=== PATIENT | male | born 1965 | race Asian ===

== ENCOUNTER 2018-04-08 21:49 | Inpatient (IN) | payer MEDICARE, OTHER ==
[~2018-04-08] VITALS: Ht 172.7 cm; Wt 56.7 kg
[2018-04-08] MEDS ORDERED: Isovue-300 100ml vial INJ PRN (22:00)
[2018-04-08] MEDS ORDERED: Morphine Sulfate 4mg/ml Inj IVP ONE (22:00)
[2018-04-08 22:30] VITALS: BP 172/110
[2018-04-08 22:33] LABS: ANION GAP 17 mmol/L (5-15); BLOOD UREA NITROGEN 19 mg/dL (7-18); CALCIUM 10.1 MG/DL (8.5-10.1); CARBON DIOXIDE 19 MMOL/L (21-32); CHLORIDE 101 MMOL/L (98-107); CREATININE 0.4 MG/DL (0.55-1.30); POTASSIUM 3.4 MMOL/L (3.5-5.1); SODIUM 137 MMOL/L (136-145)
[2018-04-08 22:37] LABS: HEMATOCRIT 39.5 % (42.0-52.0); HEMOGLOBIN 13.6 G/DL (14.2-18.0); MEAN CORPUSCULAR VOLUME 89 FL (80-99); PLATELET COUNT 292 K/UL (150-450); RED BLOOD COUNT 4.42 M/UL (4.70-6.10); RED CELL DISTRIBUTION WIDTH 12.4 % (11.6-14.8); WHITE BLOOD COUNT 19.3 K/UL (4.8-10.8)
[2018-04-08 22:38] LABS: ALANINE AMINOTRANSFERASE 73 U/L (12-78); ALBUMIN 4.3 G/DL (3.4-5.0); ALBUMIN/GLOBULIN RATIO 0.7 (1.0-2.7); ALKALINE PHOSPHATASE 95 U/L (46-116); ASPARTATE AMINO TRANSFERASE 35 U/L (15-37); BILIRUBIN,TOTAL 0.5 MG/DL (0.2-1.0)
[2018-04-08] MEDS ORDERED: Morphine Sulfate 4mg/ml Inj ONE (22:38)
[2018-04-08 22:43] LABS: APPEARANCE,URINE CLEAR; BILIRUBIN, URINE NEGATIVE (NEGATIVE); COLOR,URINE PALE YELLOW; GLUCOSE, URINE (UA) NEGATIVE (NEGATIVE); KETONES,URINE 3+ (NEGATIVE); LEUKOCYTE ESTERASE ,URINE NEGATIVE (NEGATIVE); NITRITE,URINE NEGATIVE (NEGATIVE); PH,URINE 8 (4.5-8.0); PROTEIN,URINE 3+ (NEGATIVE); UROBILINOGEN,URINE NORMAL MG/DL (0.0-1.0)
[2018-04-08] MEDS ORDERED: BACLOFEN10 MG ORAL (22:44)
[2018-04-08] MEDS ORDERED: NORCO 5-325 TA1 EACH ORAL (22:44)
[2018-04-08] MEDS ORDERED: Morphine Sulfate 4mg/ml Inj IM ONE (22:45)
[2018-04-08 23:30] VITALS: BP 129/96
[2018-04-09] MEDS ORDERED: Morphine Sulfate 10mg/ml Inj IM ONE
--- NOTE | 2018-04-09 01:37 | Diagnostic Imaging Report ---
EXAM: CT Abdomen and Pelvis With Intravenous Contrast CLINICAL HISTORY: ABD PAIN TECHNIQUE: Axial computed tomography images of the abdomen and pelvis with intravenous contrast. CTDI is 18 mGy and DLP is 979 mGy-cm. One or more of the following dose reduction techniques were used: automated exposure control, adjustment of the mA and/or kV according to patient size, use of iterative reconstruction technique. COMPARISON: No relevant prior studies available. FINDINGS: Lung bases: Unremarkable. No mass. No consolidation. ABDOMEN: Liver: Unremarkable. No mass. Gallbladder and bile ducts: Mild dilatation of the CBD, 8 mm, and the gallbladder, without calcified stones. Pancreas: Unremarkable. No mass. No ductal dilation. Spleen: Unremarkable. No splenomegaly. Adrenals: Unremarkable. No mass. Kidneys and ureters: Unremarkable. No solid mass. No hydronephrosis. Stomach and bowel: Possible wall thickening in the rectosigmoid colon indicates possible colitis. No obstruction. PELVIS: Appendix: No findings to suggest acute appendicitis. Bladder: Unremarkable. No mass. Reproductive: Unremarkable as visualized. ABDOMEN and PELVIS: Intraperitoneal space: Unremarkable. No free air. No significant fluid collection. Bones/joints: No acute fracture. No dislocation. Soft tissues: Unremarkable. Vasculature: Unremarkable. No abdominal aortic aneurysm. Lymph nodes: Unremarkable. No enlarged lymph nodes. Tubes, lines and devices: Gastric tube in place. IMPRESSION: 1. Possible wall thickening in the rectosigmoid colon indicates possible colitis. 2. Mild dilatation of the CBD, 8 millimeters, and the gallbladder, without calcified stones.
[2018-04-09] MEDS ORDERED: Piperacillin/Tazobactam 3.375 GM in NS 110 ML IVPB ONE (01:45)
[2018-04-09 01:48] LABS: INR 0.9 (0.9-1.1)
[2018-04-09 02:21] VITALS: BP 123/87
[2018-04-09] MEDS ORDERED: Zolpidem 5mg tab GT ONE (02:45)
[2018-04-09 03:40] VITALS: BP 128/88
--- NOTE | 2018-04-09 04:16 | Emergency Room Report ---
History of Present Illness General Chief Complaint: Abdominal Pain Source: Family Member Present Illness HPI 52-year-old male presents ED for evaluation. Patient brought in by EMS for abdominal pain. Started tonight. Epigastric, 10 out of 10, sharp, radiating to the left upper quadrant. Patient has history of ALS. Has trach. Vent dependent. also notes some blood in patient's vomitus. Denies fevers chills. Denies chest pain or shortness of breath. No other aggravating relieving factors. Denies any other associated symptoms Allergies: Coded Allergies: No Known Allergies (Unverified , 04/08/18) Patient History Past Medical History: none Past Surgical History: none Pertinent Family History: none Social History: Denies: smoking, alcohol use, drug use Immunizations: UTD Reviewed Nursing Documentation: PMH: Agreed; PSxH: Agreed Review of Systems All Other Systems: negative except mentioned in HPI Physical Exam Vital Signs Date Time Temp Pulse Resp B/P (MAP) Pulse Ox O2 Delivery O2 Flow Rate FiO2 04/08/18 21:43 98.7 112 16 195/110 100 Mechanical Ventilator 30 98.8 Sp02 EP Interpretation: reviewed, normal General Appearance: no apparent distress, alert, GCS 15, non-toxic Head: normocephalic, atraumatic Eyes: bilateral eye normal inspection, bilateral eye PERRL ENT: hearing grossly normal, normal pharynx, no angioedema, normal voice Neck: full range of motion, supple/symm/no masses, tracheotomy Respiratory: chest non-tender, lungs clear, normal breath sounds, speaking full sentences Cardiovascular #1: regular rate, rhythm, no edema Cardiovascular #2: 2+ carotid (R), 2+ carotid (L), 2+ radial (R), 2+ radial (L) , 2+ dorsalis pedis (R), 2+ dorsalis pedis (L) Gastrointestinal: normal bowel sounds, soft, non-distended, no guarding, no rebound, tenderness Rectal: deferred Genitourinary: normal inspection, no CVA tenderness Musculoskeletal: back normal Neurologic: alert, oriented x3, responsive, other - ALS Psychiatric: judgement/insight normal, memory normal, mood/affect normal, no suicidal/homicidal ideation Reflexes: 0 bicep (R), 0 bicep (L), 0 tricep (R), 0 tricep (L), 0 knee (R), 0 knee (L), 0 ankle (R), 0 ankle (L) Skin: normal color, no rash, warm/dry, well hydrated Lymphatic: no adenopathy Procedures Central Line Central Line : Consent: Written Central Line Lumen: triple Maximal Sterile Barrier Tech: yes cap, yes mask, yes sterile gown, yes sterile gloves, yes large sterile sheet, yes hand hygiene, yes chlorhexidine prep Central Line Postion: femoral (R), femoral (L) Anesthesia: Lidocaine Complications: none Attempts: Other - twice Patient Tolerated: Poor Complications: Other - unable to thread guidewire Medical Decision Making Diagnostic Impression: Primary Impression: Colitis Additional Impressions: UGIB (upper gastrointestinal bleed) ALS (amyotrophic lateral sclerosis) Tracheostomy dependent ER Course Hospital Course 52-year-old male presents ED with epigastric pain, coffee-ground emesis. History of ALS Differential diagnoses include: BPH, cystitis, pyelonephritis, kidney stone Clinical course Patient placed on stretcher. cafeteria monitor. After initial history and physical I ordered labs, IV fluids, UA, pain medication and CT scan Patient has difficult IV access. I attempted central line in right and left femoral; I was unable to thread the guidewire likely due to sclerosis. Ultimately nursing was able to establish peripheral access Labs - noted leukocytosis, Hb/Hct stable, electrolytes ok CT abdomen and pelvis - colitis Patient given broad-spectrum antibiotics. Given IV fluids. Pain ultimately controlled with multiple dosing of medication. Discussed findings with patient and family Case discussed with Dr. Cassidy and he agreed to accept the patient to his service for further care and support I feel this is a highly complex case requiring extensive working including EKG/ Rhythm strip, Xray/CT/US, Blood/urine lab work, repeat exams while in ED, and administration of strong opiates/narcotics for pain control, admission to hospital or close patient follow up. Diagnosis - colitis, UGIB, ALS, tracheostomy dependent Patient admitted to SDU in serious condition Labs Test 04/08/18 22:05 04/08/18 22:26 White Blood Count 19.3 K/UL (4.8-10.8) Red Blood Count 4.42 M/UL (4.70-6.10) Hemoglobin 13.6 G/DL (14.2-18.0) Hematocrit 39.5 % (42.0-52.0) Mean Corpuscular Volume 89 FL (80-99) Mean Corpuscular Hemoglobin 30.7 PG (27.0-31.0) Mean Corpuscular Hemoglobin Concent 34.3 G/DL (32.0-36.0) Red Cell Distribution Width 12.4 % (11.6-14.8) Platelet Count 292 K/UL (150-450) Mean Platelet Volume 6.8 FL (6.5-10.1) Neutrophils (%) (Auto) % (45.0-75.0) Lymphocytes (%) (Auto) % (20.0-45.0) Monocytes (%) (Auto) % (1.0-10.0) Eosinophils (%) (Auto) % (0.0-3.0) Basophils (%) (Auto) % (0.0-2.0) Differential Total Cells Counted 100 Neutrophils % (Manual) 82 % (45-75) Lymphocytes % (Manual) 9 % (20-45) Monocytes % (Manual) 7 % (1-10) Eosinophils % (Manual) 0 % (0-3) Basophils % (Manual) 0 % (0-2) Band Neutrophils 2 % (0-8) Platelet Estimate Adequate Platelet Morphology Normal Red Blood Cell Morphology Normal Prothrombin Time 9.9 SEC (9.30-11.50) Prothromb Time International Ratio 0.9 (0.9-1.1) Activated Partial Thromboplast Time 26 SEC (23-33) Sodium Level 137 MMOL/L (136-145) Potassium Level 3.4 MMOL/L (3.5-5.1) Chloride Level 101 MMOL/L (98-107) Carbon Dioxide Level 19 MMOL/L (21-32) Anion Gap 17 mmol/L (5-15) Blood Urea Nitrogen 19 mg/dL (7-18) Creatinine 0.4 MG/DL (0.55-1.30) Estimat Glomerular Filtration Rate > 60 mL/min (>60) Glucose Level 154 MG/DL (74-106) Calcium Level 10.1 MG/DL (8.5-10.1) Total Bilirubin 0.5 MG/DL (0.2-1.0) Aspartate Amino Transf (AST/SGOT) 35 U/L (15-37) Alanine Aminotransferase (ALT/SGPT) 73 U/L (12-78) Alkaline Phosphatase 95 U/L (46-116) Total Protein 10.1 G/DL (6.4-8.2) Albumin 4.3 G/DL (3.4-5.0) Globulin 5.8 g/dL Albumin/Globulin Ratio 0.7 (1.0-2.7) Lipase 115 U/L (73-393) Urine Color Pale yellow Urine Appearance Clear Urine pH 8 (4.5-8.0) Urine Specific [place] 1.015 (1.005-1.035) Urine Protein 3+ (NEGATIVE) Urine Glucose (UA) Negative (NEGATIVE) Urine Ketones 3+ (NEGATIVE) Urine Occult Blood 1+ (NEGATIVE) Urine Nitrite Negative (NEGATIVE) Urine Bilirubin Negative (NEGATIVE) Urine Urobilinogen Normal MG/DL (0.0-1.0) Urine Leukocyte Esterase Negative (NEGATIVE) Urine RBC 2-4 /HPF (0 - 0) Urine WBC 0-2 /HPF (0 - 0) Urine Squamous Epithelial Cells None /LPF (NONE/OCC) Urine Amorphous Sediment Few /LPF (NONE) Urine Bacteria Few /HPF (NONE) CT/MRI/US Diagnostic Results CT/MRI/US Diagnostic Results : Imaging Test Ordered: CT A/P Impression 1. Possible wall thickening in the rectosigmoid colon indicates possible colitis. 2. Mild dilatation of the CBD, 8 millimeters, and the gallbladder, without calcified stones. Last Vital Signs Date Time Temp Pulse Resp B/P (MAP) Pulse Ox O2 Delivery O2 Flow Rate FiO2 04/09/18 04:00 30 04/09/18 03:36 103 29 04/09/18 03:31 98.4 137/88 100 Mechanical Ventilator Status: improved Disposition: ELOPED Condition: Serious Referrals: NOT CHOSEN IPA/,REFERRING (PCP) Andrea Griffin MD April 09, 2018 04:16
[2018-04-09] MEDS ORDERED: VENLAFAXINE HCL25 MG GT (06:45)
[2018-04-09] MEDS ORDERED: AMBIEN10 MG GT (06:45)
[2018-04-09] MEDS ORDERED: SENNA8.6 M2 GT (06:45)
[2018-04-09] MEDS ORDERED: COLACE100 MG GT (06:45)
[2018-04-09] MEDS ORDERED: Norco 5mg/325mg tab ORAL PRN (07:00)
[2018-04-09] MEDS ORDERED: Milk of Magnesia 30ml Ud ORAL PRN (07:00)
[2018-04-09 09:00] VITALS: BP 119/81
[2018-04-09] MEDS ORDERED: Docusate 100mg/10ml Liq GT SCH (09:00)
[2018-04-09] MEDS ORDERED: Sennosides 8.6mg GT SCH ×2 (09:00→21:00)
[2018-04-09] MEDS ORDERED: Venlafaxine 25mg tab GT SCH (09:00)
[2018-04-09] MEDS: HYDROmorphone 4mg tab GT PRN ×2 (09:34→13:38)
[2018-04-09] MEDS: Pantoprazole Inj IVP SCH (09:35)
[2018-04-09 09:48] LABS: ANION GAP 13 mmol/L (5-15); BLOOD UREA NITROGEN 16 mg/dL (7-18); CALCIUM 9.4 MG/DL (8.5-10.1); CARBON DIOXIDE 20 MMOL/L (21-32); CHLORIDE 106 MMOL/L (98-107); CREATININE 0.4 MG/DL (0.55-1.30); POTASSIUM 3.3 MMOL/L (3.5-5.1); SODIUM 139 MMOL/L (136-145)
[2018-04-09 09:58] LABS: BASOPHILS % (AUTO) 0.8 % (0.0-2.0); EOSINOPHILS % (AUTO) 0.5 % (0.0-3.0); HEMATOCRIT 36.2 % (42.0-52.0); HEMOGLOBIN 12.3 G/DL (14.2-18.0); LYMPHOCYTES % (AUTO) 7.4 % (20.0-45.0); MEAN CORPUSCULAR VOLUME 91 FL (80-99); NEUTROPHILS % (AUTO) 81.2 % (45.0-75.0); PLATELET COUNT 295 K/UL (150-450); RED BLOOD COUNT 3.97 M/UL (4.70-6.10); RED CELL DISTRIBUTION WIDTH 12.5 % (11.6-14.8); WHITE BLOOD COUNT 13.3 K/UL (4.8-10.8)
--- NOTE | 2018-04-09 10:31 | History & Physical ---
History and Physical History & Physicial 52-year-old male presents with abdominal pain. Patient with Epigastric pain, 10 out of 10, sharp, radiating to the left upper quadrant. Patient has history of ALS. Has trach. Vent dependent. also notes blood in the vomitus. Denies fevers chills. Denies chest pain or shortness of breath. No other aggravating relieving factors. Denies any other associated symptoms Allergies: No Known Allergies (Unverified , 04/08/18) Past Medical History: ALS vent dependent, trach, gt Past Surgical History: trach, gt Pertinent Family History: none Social History: Denies: smoking, alcohol use, drug use Reviewed of systems: unable Physical WDWN NAD trach and gt clear breath sounds bilaterally without rhonchi or wheeze [id number] without MRG NABS nontender no HSM quad Laboratory Tests Test 04/08/18 22:05 04/08/18 22:26 04/09/18 09:00 White Blood Count 19.3 K/UL (4.8-10.8) H 13.3 K/UL (4.8-10.8) H Red Blood Count 4.42 M/UL (4.70-6.10) L 3.97 M/UL (4.70-6.10) L Hemoglobin 13.6 G/DL (14.2-18.0) L 12.3 G/DL (14.2-18.0) L Hematocrit 39.5 % (42.0-52.0) L 36.2 % (42.0-52.0) L Mean Corpuscular Volume 89 FL (80-99) 91 FL (80-99) Mean Corpuscular Hemoglobin 30.7 PG (27.0-31.0) 31.0 PG (27.0-31.0) Mean Corpuscular Hemoglobin Concent 34.3 G/DL (32.0-36.0) 34.0 G/DL (32.0-36.0) Red Cell Distribution Width 12.4 % (11.6-14.8) 12.5 % (11.6-14.8) Platelet Count 292 K/UL (150-450) 295 K/UL (150-450) Mean Platelet Volume 6.8 FL (6.5-10.1) 7.7 FL (6.5-10.1) Neutrophils (%) (Auto) % (45.0-75.0) 81.2 % (45.0-75.0) H Lymphocytes (%) (Auto) % (20.0-45.0) 7.4 % (20.0-45.0) L Monocytes (%) (Auto) % (1.0-10.0) 10.0 % (1.0-10.0) Eosinophils (%) (Auto) % (0.0-3.0) 0.5 % (0.0-3.0) Basophils (%) (Auto) % (0.0-2.0) 0.8 % (0.0-2.0) Differential Total Cells Counted 100 Neutrophils % (Manual) 82 % (45-75) H Lymphocytes % (Manual) 9 % (20-45) L Monocytes % (Manual) 7 % (1-10) Eosinophils % (Manual) 0 % (0-3) Basophils % (Manual) 0 % (0-2) Band Neutrophils 2 % (0-8) Platelet Estimate Adequate Platelet Morphology Normal Red Blood Cell Morphology Normal Prothrombin Time 9.9 SEC (9.30-11.50) Prothromb Time International Ratio 0.9 (0.9-1.1) Activated Partial Thromboplast Time 26 SEC (23-33) Sodium Level 137 MMOL/L (136-145) 139 MMOL/L (136-145) Potassium Level 3.4 MMOL/L (3.5-5.1) L 3.3 MMOL/L (3.5-5.1) L Chloride Level 101 MMOL/L (98-107) 106 MMOL/L (98-107) Carbon Dioxide Level 19 MMOL/L (21-32) L 20 MMOL/L (21-32) L Anion Gap 17 mmol/L (5-15) H 13 mmol/L (5-15) Blood Urea Nitrogen 19 mg/dL (7-18) H 16 mg/dL (7-18) Creatinine 0.4 MG/DL (0.55-1.30) L 0.4 MG/DL (0.55-1.30) L Estimat Glomerular Filtration Rate > 60 mL/min (>60) > 60 mL/min (>60) Glucose Level 154 MG/DL (74-106) H 128 MG/DL (74-106) H Calcium Level 10.1 MG/DL (8.5-10.1) 9.4 MG/DL (8.5-10.1) Total Bilirubin 0.5 MG/DL (0.2-1.0) Aspartate Amino Transf (AST/SGOT) 35 U/L (15-37) Alanine Aminotransferase (ALT/SGPT) 73 U/L (12-78) Alkaline Phosphatase 95 U/L (46-116) Total Protein 10.1 G/DL (6.4-8.2) H Albumin 4.3 G/DL (3.4-5.0) Globulin 5.8 g/dL Albumin/Globulin Ratio 0.7 (1.0-2.7) L Lipase 115 U/L (73-393) Urine Color Pale yellow Urine Appearance Clear Urine pH 8 (4.5-8.0) Urine Specific [place] 1.015 (1.005-1.035) Urine Protein 3+ (NEGATIVE) H Urine Glucose (UA) Negative (NEGATIVE) Urine Ketones 3+ (NEGATIVE) H Urine Occult Blood 1+ (NEGATIVE) H Urine Nitrite Negative (NEGATIVE) Urine Bilirubin Negative (NEGATIVE) Urine Urobilinogen Normal MG/DL (0.0-1.0) Urine Leukocyte Esterase Negative (NEGATIVE) Urine RBC 2-4 /HPF (0 - 0) H Urine WBC 0-2 /HPF (0 - 0) Urine Squamous Epithelial Cells None /LPF (NONE/OCC) Urine Amorphous Sediment Few /LPF (NONE) H Urine Bacteria Few /HPF (NONE) IMPRESSION UGIB trach ALS leukocytosis possible uti PLAN gi evaluation antibiotics vent maintain meds maintain feeds dc once stable Bob Cassidy MD April 09, 2018 10:31
[2018-04-09 12:00] VITALS: BP 106/71
[2018-04-09] MEDS: Cefepime HCl 1 GM in D5W 110 ML IVPB SCH ×2 (13:38→22:05)
--- NOTE | 2018-04-09 13:49 | General Progress Note ---
Assessment/Plan Assessment/Plan abd pain CT: Procedure: CT Abdomen Pelvis w/Contrast EXAM: CT Abdomen and Pelvis With Intravenous Contrast CLINICAL HISTORY: ABD PAIN TECHNIQUE: Axial computed tomography images of the abdomen and pelvis with intravenous contrast. CTDI is 18 mGy and DLP is 979 mGy-cm. One or more of the following dose reduction techniques were used: automated exposure control, adjustment of the mA and/or kV according to patient size, use of iterative reconstruction technique. COMPARISON: No relevant prior studies available. FINDINGS: Lung bases: Unremarkable. No mass. No consolidation. ABDOMEN: Liver: Unremarkable. No mass. Gallbladder and bile ducts: Mild dilatation of the CBD, 8 mm, and the gallbladder, without calcified stones. Pancreas: Unremarkable. No mass. No ductal dilation. Spleen: Unremarkable. No splenomegaly. Adrenals: Unremarkable. No mass. Kidneys and ureters: Unremarkable. No solid mass. No hydronephrosis. Stomach and bowel: Possible wall thickening in the rectosigmoid colon indicates possible colitis. No obstruction. PELVIS: Appendix: No findings to suggest acute appendicitis. Bladder: Unremarkable. No mass. Reproductive: Unremarkable as visualized. ABDOMEN and PELVIS: Intraperitoneal space: Unremarkable. No free air. No significant fluid collection. Bones/joints: No acute fracture. No dislocation. Soft tissues: Unremarkable. Vasculature: Unremarkable. No abdominal aortic aneurysm. Lymph nodes: Unremarkable. No enlarged lymph nodes. Tubes, lines and devices: Gastric tube in place. IMPRESSION: 1. Possible wall thickening in the rectosigmoid colon indicates possible colitis. 2. Mild dilatation of the CBD, 8 millimeters, and the gallbladder, without calcified stones. plan: NPO stool studies IVF pain control repeat labs anemia work up abd us Subjective ROS Limited/Unobtainable: Yes Allergies: Coded Allergies: No Known Allergies (Unverified , 04/08/18) Subjective abd pain Objective Last 24 Hour Vital Signs Date Time Temp Pulse Resp B/P (MAP) Pulse Ox O2 Delivery O2 Flow Rate FiO2 04/09/18 13:01 94 14 99 Mechanical Ventilator 30 04/09/18 12:55 91 19 30 04/09/18 12:55 91 19 98 Mechanical Ventilator 30 04/09/18 12:00 99.0 88 24 106/71 100 Mechanical Ventilator 30 99.0 04/09/18 12:00 30 04/09/18 11:30 102 04/09/18 10:52 98 14 30 04/09/18 10:35 98 14 99 Mechanical Ventilator 30 04/09/18 10:25 96 14 99 Mechanical Ventilator 30 04/09/18 09:29 92 21 30 04/09/18 09:00 99.6 90 16 119/81 99 Mechanical Ventilator 30 99.6 04/09/18 08:00 113 04/09/18 08:00 30 04/09/18 06:50 107 16 30 04/09/18 05:23 102 29 30 04/09/18 04:00 102 04/09/18 04:00 30 04/09/18 03:40 98.4 105 21 128/88 100 Mechanical Ventilator 30 98.4 04/09/18 03:36 103 29 30 04/09/18 03:31 98.4 103 29 137/88 100 Mechanical Ventilator 04/09/18 03:06 101 04/09/18 02:21 98.4 106 26 123/87 100 Mechanical Ventilator 98.4 04/09/18 01:25 109 21 30 04/08/18 23:30 111 17 129/96 100 Mechanical Ventilator 04/08/18 23:03 109 21 30 04/08/18 22:35 109 21 Mechanical Ventilator 30 04/08/18 22:30 98.8 106 21 172/110 100 Mechanical Ventilator 30 98.8 04/08/18 22:13 109 21 30 04/08/18 21:43 98.7 112 16 195/110 100 Mechanical Ventilator 30 98.8 Intake and Output 04/08/18 04/09/18 19:00 07:00 Intake Total 1000 ml Balance 1000 ml IV Total 1000 ml # Voids 1 Laboratory Tests 04/08/18 22:05: White Blood Count 19.3H, Red Blood Count 4.42L, Hemoglobin 13.6L, Hematocrit 39.5L, Mean Corpuscular Volume 89, Mean Corpuscular Hemoglobin 30.7, Mean Corpuscular Hemoglobin Concent 34.3, Red Cell Distribution Width 12.4, Platelet Count 292, Mean Platelet Volume 6.8, Neutrophils (%) (Auto) , Lymphocytes (%) ( Auto) , Monocytes (%) (Auto) , Eosinophils (%) (Auto) , Basophils (%) (Auto) , Differential Total Cells Counted 100, Neutrophils % (Manual) 82H, Lymphocytes % (Manual) 9L, Monocytes % (Manual) 7, Eosinophils % (Manual) 0, Basophils % ( Manual) 0, Band Neutrophils 2, Platelet Estimate Adequate, Platelet Morphology Normal, Red Blood Cell Morphology Normal, Prothrombin Time 9.9, Prothromb Time International Ratio 0.9, Activated Partial Thromboplast Time 26, Sodium Level 137, Potassium Level 3.4L, Chloride Level 101, Carbon Dioxide Level 19L, Anion Gap 17H, Blood Urea Nitrogen 19H, Creatinine 0.4L, Estimat Glomerular Filtration Rate > 60, Glucose Level 154H, Calcium Level 10.1, Total Bilirubin 0.5, Aspartate Amino Transf (AST/SGOT) 35, Alanine Aminotransferase (ALT/SGPT) 73, Alkaline Phosphatase 95, Total Protein 10.1H, Albumin 4.3, Globulin 5.8, Albumin/Globulin Ratio 0.7L, Lipase 115 04/08/18 22:26: Urine Color Pale yellow, Urine Appearance Clear, Urine pH 8, Urine Specific [place] 1.015, Urine Protein 3+H, Urine Glucose (UA) Negative, Urine Ketones 3+H , Urine Occult Blood 1+H, Urine Nitrite Negative, Urine Bilirubin Negative, Urine Urobilinogen Normal, Urine Leukocyte Esterase Negative, Urine RBC 2-4H, Urine WBC 0-2, Urine Squamous Epithelial Cells None, Urine Amorphous Sediment FewH, Urine Bacteria Few 04/09/18 09:00: White Blood Count 13.3H, Red Blood Count 3.97L, Hemoglobin 12.3L, Hematocrit 36.2L, Mean Corpuscular Volume 91, Mean Corpuscular Hemoglobin 31.0, Mean Corpuscular Hemoglobin Concent 34.0, Red Cell Distribution Width 12.5, Platelet Count 295, Mean Platelet Volume 7.7, Neutrophils (%) (Auto) 81.2H, Lymphocytes ( %) (Auto) 7.4L, Monocytes (%) (Auto) 10.0, Eosinophils (%) (Auto) 0.5, Basophils (%) (Auto) 0.8, Sodium Level 139, Potassium Level 3.3L, Chloride Level 106, Carbon Dioxide Level 20L, Anion Gap 13, Blood Urea Nitrogen 16, Creatinine 0.4L, Estimat Glomerular Filtration Rate > 60, Glucose Level 128H, Calcium Level 9.4 Height (Feet): 5 Height (Inches): 8.00 Weight (Pounds): 121 General Appearance: alert EENT: normal ENT inspection Neck: supple Cardiovascular: normal rate Respiratory/Chest: decreased breath sounds Abdomen: soft, hypoactive bowel sounds, distended Extremities: non-tender Niraj Avaols MD April 09, 2018 13:49
[2018-04-09] MEDS: D5 1/2NS w/KCl 20mEq 1,000 ML IV SCH (15:23)
[2018-04-09] MEDS ORDERED: Sterile Water Irrig 1000ml IRRIG ONE (15:32)
[2018-04-09] MEDS ORDERED: NS 500ML ONE (15:32)
[2018-04-09 16:00] VITALS: BP 115/78
--- NOTE | 2018-04-09 17:44 | Diagnostic Imaging Report ---
EXAM: US Abdomen Complete CLINICAL HISTORY: ABD PAIN TECHNIQUE: Real-time ultrasound of the abdomen (complete) with image documentation. COMPARISON: CT abdomen and pelvis today FINDINGS: Liver: Dense liver likely fatty. Liver measures 17.6 cm. No intrahepatic bile duct dilation. Gallbladder: Distended gallbladder. Stone and sludge within the gallbladder neck. The gallbladder wall normal, 2.7 mm. Negative Melo's sign. Common bile duct: CBD normal, 5.0 mm. No stones. No dilation. Pancreas: Unremarkable as visualized. Kidneys: Right kidney measures 12.4 x 5.3 x 6.4 cm. Left kidney measures 4.7 x 6 8 9 x 5.9 cm. No stones. No hydronephrosis. Aorta: Unremarkable. No aneurysm. Inferior vena cava: Unremarkable. IMPRESSION: 1. Dense enlarged liver likely fatty. 2. Distended gallbladder. Stone and sludge within the gallbladder neck. No acute cholecystitis.
[2018-04-09] MEDS: Albuterol/Ipratropium 3ml neb HHN PRN (19:45)
[2018-04-09] MEDS ORDERED: Zolpidem 5mg tab ORAL PRN ×2 (19:45→20:00)
[2018-04-09 20:00] VITALS: BP 124/82
[2018-04-09] MEDS: Venlafaxine 25mg tab GT SCH (22:05)
[2018-04-09] MEDS: Zolpidem 5mg tab ORAL PRN (22:06)
[2018-04-10] VITALS: BP 102/69
[2018-04-10] MEDS: Albuterol/Ipratropium 3ml neb HHN PRN (00:31)
[2018-04-10] MEDS: Zolpidem 5mg tab ORAL PRN ×2 (02:07→22:21)
[2018-04-10 04:00] VITALS: BP 103/72
[2018-04-10] MEDS: D5 1/2NS w/KCl 20mEq 1,000 ML IV SCH ×2 (04:14→18:34)
[2018-04-10 05:41] LABS: BASOPHILS % (AUTO) 0.8 % (0.0-2.0); EOSINOPHILS % (AUTO) 1.5 % (0.0-3.0); HEMATOCRIT 31.5 % (42.0-52.0); HEMOGLOBIN 10.8 G/DL (14.2-18.0); LYMPHOCYTES % (AUTO) 14.4 % (20.0-45.0); MEAN CORPUSCULAR VOLUME 92 FL (80-99); MONOCYTES % (AUTO) 11.9 % (1.0-10.0); NEUTROPHILS % (AUTO) 71.4 % (45.0-75.0); PLATELET COUNT 245 K/UL (150-450); RED BLOOD COUNT 3.43 M/UL (4.70-6.10); RED CELL DISTRIBUTION WIDTH 12.3 % (11.6-14.8); WHITE BLOOD COUNT 12.4 K/UL (4.8-10.8)
[2018-04-10 06:11] LABS: AMYLASE 49 U/L (25-115)
[2018-04-10 06:21] LABS: ALANINE AMINOTRANSFERASE 29 U/L (12-78); ALBUMIN 3.3 G/DL (3.4-5.0); ALBUMIN/GLOBULIN RATIO 0.7 (1.0-2.7); ALKALINE PHOSPHATASE 69 U/L (46-116); ANION GAP 11 mmol/L (5-15); ASPARTATE AMINO TRANSFERASE 18 U/L (15-37); BILIRUBIN,TOTAL 0.9 MG/DL (0.2-1.0); BLOOD UREA NITROGEN 12 mg/dL (7-18); CALCIUM 9.3 MG/DL (8.5-10.1); CARBON DIOXIDE 21 MMOL/L (21-32); CHLORIDE 105 MMOL/L (98-107); CREATININE 0.3 MG/DL (0.55-1.30); POTASSIUM 3.5 MMOL/L (3.5-5.1); SODIUM 137 MMOL/L (136-145)
[2018-04-10 06:22] LABS: % IRON SATURATION 16 % (15-50); IRON 39 ug/dL (50-175); TOTAL IRON BINDING CAPACITY 243 ug/dL (250-450)
[2018-04-10] MEDS ORDERED: Fleet's Mineral Oil Enema RECTAL PRN (06:45)
--- NOTE | 2018-04-10 07:21 | General Progress Note ---
Assessment/Plan Assessment/Plan IMPRESSION UGIB trach gallstones anemia possible colitis ALS leukocytosis possible uti PLAN gi evaluation antibiotics ? dc add flagyl for now vent maintain meds maintain feeds dc once stable Subjective Allergies: Coded Allergies: No Known Allergies (Unverified , 04/08/18) Subjective care noted gi appreciated cdif ordered Objective Last 24 Hour Vital Signs Date Time Temp Pulse Resp B/P (MAP) Pulse Ox O2 Delivery O2 Flow Rate FiO2 04/10/18 06:33 91 14 30 04/10/18 06:33 89 14 99 Mechanical Ventilator 30 04/10/18 06:33 Mechanical Ventilator 04/10/18 04:57 94 14 30 04/10/18 04:00 30 04/10/18 04:00 68 04/10/18 04:00 98.2 87 16 103/72 100 Mechanical Ventilator 30 98.2 04/10/18 03:05 96 14 30 04/10/18 00:49 81 14 99 Mechanical Ventilator 30 04/10/18 00:44 85 14 30 04/10/18 00:31 79 14 96 Mechanical Ventilator 30 04/10/18 00:00 98.9 88 16 102/69 100 Mechanical Ventilator 30 98.9 04/10/18 00:00 30 04/09/18 22:48 89 17 30 04/09/18 20:54 83 30 30 04/09/18 20:00 85 04/09/18 20:00 30 04/09/18 20:00 98.7 94 16 124/82 100 Mechanical Ventilator 30 98.7 04/09/18 19:40 89 14 99 Mechanical Ventilator 30 04/09/18 19:29 88 14 99 Mechanical Ventilator 30 04/09/18 18:47 97 28 30 04/09/18 17:16 99 24 30 04/09/18 16:00 99.8 88 16 115/78 100 Mechanical Ventilator 30 99.8 04/09/18 16:00 30 04/09/18 15:30 89 04/09/18 15:00 106 22 30 04/09/18 13:01 94 14 99 Mechanical Ventilator 30 04/09/18 12:55 91 19 30 04/09/18 12:55 91 19 98 Mechanical Ventilator 30 04/09/18 12:00 99.0 88 24 106/71 100 Mechanical Ventilator 30 99.0 04/09/18 12:00 30 04/09/18 11:30 93 5/19/18 10:52 98 14 30 04/09/18 10:35 98 14 99 Mechanical Ventilator 30 04/09/18 10:25 96 14 99 Mechanical Ventilator 30 04/09/18 09:29 92 21 30 04/09/18 09:00 99.6 90 16 119/81 99 Mechanical Ventilator 30 99.6 04/09/18 08:00 113 04/09/18 08:00 30 Intake and Output 04/09/18 04/10/18 19:00 07:00 Intake Total 651.25 ml 1082 ml Output Total 400 ml Balance 651.25 ml 682 ml Intake Free Water 270 ml 150 ml IV Total 381.25 ml 932 ml Output Urine Total 400 ml # Voids 2 3 Laboratory Tests 04/09/18 09:00: White Blood Count 13.3H, Red Blood Count 3.97L, Hemoglobin 12.3L, Hematocrit 36.2L, Mean Corpuscular Volume 91, Mean Corpuscular Hemoglobin 31.0, Mean Corpuscular Hemoglobin Concent 34.0, Red Cell Distribution Width 12.5, Platelet Count 295, Mean Platelet Volume 7.7, Neutrophils (%) (Auto) 81.2H, Lymphocytes ( %) (Auto) 7.4L, Monocytes (%) (Auto) 10.0, Eosinophils (%) (Auto) 0.5, Basophils (%) (Auto) 0.8, Sodium Level 139, Potassium Level 3.3L, Chloride Level 106, Carbon Dioxide Level 20L, Anion Gap 13, Blood Urea Nitrogen 16, Creatinine 0.4L, Estimat Glomerular Filtration Rate > 60, Glucose Level 128H, Calcium Level 9.4 04/10/18 03:10: White Blood Count 12.4H, Red Blood Count 3.43L, Hemoglobin 10.8L, Hematocrit 31.5L, Mean Corpuscular Volume 92, Mean Corpuscular Hemoglobin 31.4H, Mean Corpuscular Hemoglobin Concent 34.2, Red Cell Distribution Width 12.3, Platelet Count 245, Mean Platelet Volume 7.4, Neutrophils (%) (Auto) 71.4, Lymphocytes (% ) (Auto) 14.4L, Monocytes (%) (Auto) 11.9H, Eosinophils (%) (Auto) 1.5, Basophils (%) (Auto) 0.8, Sodium Level 137, Potassium Level 3.5, Chloride Level 105, Carbon Dioxide Level 21, Anion Gap 11, Blood Urea Nitrogen 12, Creatinine 0.3L, Estimat Glomerular Filtration Rate > 60, Glucose Level 122H, Calcium Level 9.3, Iron Level 39L, Total Iron Binding Capacity 243L, Percent Iron Saturation 16, Unsaturated Iron Binding 204, Total Bilirubin 0.9, Aspartate Amino Transf (AST/SGOT) 18, Alanine Aminotransferase (ALT/SGPT) 29, Alkaline Phosphatase 69, Total Protein 8.0, Albumin 3.3L, Globulin 4.7, Albumin/Globulin Ratio 0.7L, Amylase Level 49, Lipase 101, Carcinoembryonic Antigen [Pending] Height (Feet): 5 Height (Inches): 8.00 Weight (Pounds): 121 Objective WDWN NAD clear breath sounds bilaterally without rhonchi or wheeze [id number] without MRG NABS mildly tender no CCE quad trach Bob Cassidy MD April 10, 2018 07:21
[2018-04-10 08:00] VITALS: BP 89/58
[2018-04-10] MEDS: metroNIDAZOLE 500mg tab ORAL SCH ×3 (09:48→22:21)
[2018-04-10] MEDS: Cefepime HCl 1 GM in D5W 110 ML IVPB SCH ×2 (09:48→22:00)
[2018-04-10] MEDS: Pantoprazole Inj IVP SCH (09:48)
[2018-04-10] MEDS: Venlafaxine 25mg tab GT SCH ×2 (09:48→21:54)
--- NOTE | 2018-04-10 11:02 | General Progress Note ---
Assessment/Plan Assessment/Plan abd pain CT: Procedure: CT Abdomen Pelvis w/Contrast EXAM: CT Abdomen and Pelvis With Intravenous Contrast CLINICAL HISTORY: ABD PAIN TECHNIQUE: Axial computed tomography images of the abdomen and pelvis with intravenous contrast. CTDI is 18 mGy and DLP is 979 mGy-cm. One or more of the following dose reduction techniques were used: automated exposure control, adjustment of the mA and/or kV according to patient size, use of iterative reconstruction technique. COMPARISON: No relevant prior studies available. FINDINGS: Lung bases: Unremarkable. No mass. No consolidation. ABDOMEN: Liver: Unremarkable. No mass. Gallbladder and bile ducts: Mild dilatation of the CBD, 8 mm, and the gallbladder, without calcified stones. Pancreas: Unremarkable. No mass. No ductal dilation. Spleen: Unremarkable. No splenomegaly. Adrenals: Unremarkable. No mass. Kidneys and ureters: Unremarkable. No solid mass. No hydronephrosis. Stomach and bowel: Possible wall thickening in the rectosigmoid colon indicates possible colitis. No obstruction. PELVIS: Appendix: No findings to suggest acute appendicitis. Bladder: Unremarkable. No mass. Reproductive: Unremarkable as visualized. ABDOMEN and PELVIS: Intraperitoneal space: Unremarkable. No free air. No significant fluid collection. Bones/joints: No acute fracture. No dislocation. Soft tissues: Unremarkable. Vasculature: Unremarkable. No abdominal aortic aneurysm. Lymph nodes: Unremarkable. No enlarged lymph nodes. Tubes, lines and devices: Gastric tube in place. IMPRESSION: 1. Possible wall thickening in the rectosigmoid colon indicates possible colitis. 2. Mild dilatation of the CBD, 8 millimeters, and the gallbladder, without calcified stones. plan: NPO stool studies IVF pain control repeat labs anemia work up abd us>>> distended GB with stones plan EGD tomorrow recommend surg consult Subjective ROS Limited/Unobtainable: Yes Allergies: Coded Allergies: No Known Allergies (Unverified , 04/08/18) Subjective abd pain Objective Last 24 Hour Vital Signs Date Time Temp Pulse Resp B/P (MAP) Pulse Ox O2 Delivery O2 Flow Rate FiO2 04/10/18 10:47 90 14 30 04/10/18 08:34 92 14 30 04/10/18 08:00 98.6 60 14 89/58 100 Mechanical Ventilator 30 98.6 04/10/18 06:33 91 14 30 04/10/18 06:33 89 14 99 Mechanical Ventilator 30 04/10/18 06:33 Mechanical Ventilator 04/10/18 04:57 94 14 30 04/10/18 04:00 30 04/10/18 04:00 68 04/10/18 04:00 98.2 87 16 103/72 100 Mechanical Ventilator 30 98.2 04/10/18 03:05 96 14 30 04/10/18 00:49 81 14 99 Mechanical Ventilator 30 04/10/18 00:44 85 14 30 04/10/18 00:31 79 14 96 Mechanical Ventilator 30 04/10/18 00:00 98.9 88 16 102/69 100 Mechanical Ventilator 30 98.9 04/10/18 00:00 30 04/09/18 22:48 89 17 30 04/09/18 20:54 83 30 30 04/09/18 20:00 85 04/09/18 20:00 30 04/09/18 20:00 98.7 94 16 124/82 100 Mechanical Ventilator 30 98.7 04/09/18 19:40 89 14 99 Mechanical Ventilator 30 04/09/18 19:29 88 14 99 Mechanical Ventilator 30 04/09/18 18:47 97 28 30 04/09/18 17:16 99 24 30 04/09/18 16:00 99.8 88 16 115/78 100 Mechanical Ventilator 30 99.8 04/09/18 16:00 30 04/09/18 15:30 89 04/09/18 15:00 106 22 30 04/09/18 13:01 94 14 99 Mechanical Ventilator 30 04/09/18 12:55 91 19 30 04/09/18 12:55 91 19 98 Mechanical Ventilator 30 04/09/18 12:00 99.0 88 24 106/71 100 Mechanical Ventilator 30 99.0 04/09/18 12:00 30 04/09/18 11:30 93 Intake and Output 04/09/18 04/10/18 19:00 07:00 Intake Total 651.25 ml 1082 ml Output Total 400 ml Balance 651.25 ml 682 ml Intake Free Water 270 ml 150 ml IV Total 381.25 ml 932 ml Output Urine Total 400 ml # Voids 2 3 Laboratory Tests 04/10/18 03:10: White Blood Count 12.4H, Red Blood Count 3.43L, Hemoglobin 10.8L, Hematocrit 31.5L, Mean Corpuscular Volume 92, Mean Corpuscular Hemoglobin 31.4H, Mean Corpuscular Hemoglobin Concent 34.2, Red Cell Distribution Width 12.3, Platelet Count 245, Mean Platelet Volume 7.4, Neutrophils (%) (Auto) 71.4, Lymphocytes (% ) (Auto) 14.4L, Monocytes (%) (Auto) 11.9H, Eosinophils (%) (Auto) 1.5, Basophils (%) (Auto) 0.8, Sodium Level 137, Potassium Level 3.5, Chloride Level 105, Carbon Dioxide Level 21, Anion Gap 11, Blood Urea Nitrogen 12, Creatinine 0.3L, Estimat Glomerular Filtration Rate > 60, Glucose Level 122H, Calcium Level 9.3, Iron Level 39L, Total Iron Binding Capacity 243L, Percent Iron Saturation 16, Unsaturated Iron Binding 204, Total Bilirubin 0.9, Aspartate Amino Transf (AST/SGOT) 18, Alanine Aminotransferase (ALT/SGPT) 29, Alkaline Phosphatase 69, Total Protein 8.0, Albumin 3.3L, Globulin 4.7, Albumin/Globulin Ratio 0.7L, Amylase Level 49, Lipase 101, Carcinoembryonic Antigen [Pending] Height (Feet): 5 Height (Inches): 8.00 Weight (Pounds): 121 General Appearance: alert EENT: normal ENT inspection Neck: supple Cardiovascular: normal rate Respiratory/Chest: decreased breath sounds Abdomen: soft, tender Extremities: non-tender Niraj Avalos MD April 10, 2018 11:02
[2018-04-10] MEDS: HYDROmorphone 4mg tab GT PRN ×2 (11:15→18:33)
[2018-04-10] MEDS: Morphine Sulfate 4mg/ml Inj IVP PRN ×3 (11:50→22:22)
[2018-04-10 12:00] VITALS: BP 156/99
--- NOTE | 2018-04-10 14:16 | Consultation ---
History of Present Illness General Date patient seen: April 10, 2018 Chief Complaint: Abdominal Pain Reason for Consultation: abdominal pain Present Illness HPI 52M with multiple medical comorbidities presented with epigastric abdominal pain. states pain acute onset and intermittent. 10/10 at max and without radiation. made better with pain meds. upon admission noted to have mildly dilated cbd on CT but no evidence of cholecystitis. lft's, t bili, and lipase normal. abdominal ultrasound performed and noted distended gallbladder with stones and sludge but no acute cholecystitis. also noted to have potential colitis on CT. Surgery called to evaluate for abdominal pain. currently states pain improved with morphine and does not have any pain currently. no n/v /f/c. presented with leukocytosis of 19k which is now 12k. otherwise well. Allergies: Coded Allergies: No Known Allergies (Unverified , 04/08/18) Medication History Scheduled Baclofen* (Baclofen*), 10 MG ORAL THREE TIMES A DAY, (Reported) Docusate Sodium* (Colace*), 100 MG GT BID, (Reported) Sennosides (Senna), 8.6 MG GT DAILY, (Reported) Venlafaxine Hcl* (Effexor*), 25 MG GT BIDPC, (Reported) Scheduled PRN Hydrocodone Bit/Acetaminophen 5-325* ([place] 5-325*), 1 TAB ORAL Q6H PRN for For Pain, (Reported) Zolpidem Tartrate* (Ambien*), 10 MG GT BEDTIME PRN for insomnia, (Reported) Patient History History Provided By: Patient, Family Member, Medical Record, PMD Healthcare decision maker Resuscitation status Full Code Advanced Directive on File No Past Medical/Surgical History Past Medical/Surgical History: (1) Abdominal pain (2) ALS (amyotrophic lateral sclerosis) (3) Tracheostomy dependent (4) UGIB (upper gastrointestinal bleed) (5) Colitis Review of Systems All Other Systems: negative except mentioned in HPI Physical Exam General Appearance: no apparent distress Lines, tubes and drains: PICC, gtube HEENT: normocephalic Neck: trach Respiratory/Chest: on vent Cardiovascular/Chest: normal rate Abdomen: soft, no organomegaly, no mass, tender Extremities: other - wasting of extermity muscles Skin Exam: warm/dry Neurologic: alert, oriented x 3, responsive Last 24 Hour Vital Signs Date Time Temp Pulse Resp B/P (MAP) Pulse Ox O2 Delivery O2 Flow Rate FiO2 04/10/18 13:05 93 14 30 04/10/18 13:05 91 14 99 Mechanical Ventilator 30 04/10/18 13:05 Mechanical Ventilator 04/10/18 12:00 98.2 96 18 156/99 100 Mechanical Ventilator 30 98.2 04/10/18 12:00 30 04/10/18 12:00 81 04/10/18 11:50 98.6 04/10/18 11:15 98.6 04/10/18 10:47 90 14 30 04/10/18 08:34 92 14 30 04/10/18 08:00 30 04/10/18 08:00 65 04/10/18 08:00 98.6 60 14 89/58 100 Mechanical Ventilator 30 98.6 04/10/18 06:33 91 14 30 04/10/18 06:33 89 14 99 Mechanical Ventilator 30 04/10/18 06:33 Mechanical Ventilator 04/10/18 04:57 94 14 30 04/10/18 04:00 30 04/10/18 04:00 68 04/10/18 04:00 98.2 87 16 103/72 100 Mechanical Ventilator 30 98.2 04/10/18 03:05 96 14 30 04/10/18 00:49 81 14 99 Mechanical Ventilator 30 04/10/18 00:44 85 14 30 04/10/18 00:31 79 14 96 Mechanical Ventilator 30 04/10/18 00:00 98.9 88 16 102/69 100 Mechanical Ventilator 30 98.9 04/10/18 00:00 30 04/09/18 22:48 89 17 30 04/09/18 20:54 83 30 30 04/09/18 20:00 85 04/09/18 20:00 30 04/09/18 20:00 98.7 94 16 124/82 100 Mechanical Ventilator 30 98.7 04/09/18 19:40 89 14 99 Mechanical Ventilator 30 04/09/18 19:29 88 14 99 Mechanical Ventilator 30 04/09/18 18:47 97 28 30 04/09/18 17:16 99 24 30 04/09/18 16:00 99.8 88 16 115/78 100 Mechanical Ventilator 30 99.8 04/09/18 16:00 30 04/09/18 15:30 89 04/09/18 15:00 106 22 30 Intake and Output 04/09/18 04/10/18 19:00 07:00 Intake Total 651.25 ml 1082 ml Output Total 400 ml Balance 651.25 ml 682 ml Intake Free Water 270 ml 150 ml IV Total 381.25 ml 932 ml Output Urine Total 400 ml # Voids 2 3 Laboratory Tests Test 04/10/18 03:10 White Blood Count 12.4 K/UL (4.8-10.8) H Red Blood Count 3.43 M/UL (4.70-6.10) L Hemoglobin 10.8 G/DL (14.2-18.0) L Hematocrit 31.5 % (42.0-52.0) L Mean Corpuscular Volume 92 FL (80-99) Mean Corpuscular Hemoglobin 31.4 PG (27.0-31.0) H Mean Corpuscular Hemoglobin Concent 34.2 G/DL (32.0-36.0) Red Cell Distribution Width 12.3 % (11.6-14.8) Platelet Count 245 K/UL (150-450) Mean Platelet Volume 7.4 FL (6.5-10.1) Neutrophils (%) (Auto) 71.4 % (45.0-75.0) Lymphocytes (%) (Auto) 14.4 % (20.0-45.0) L Monocytes (%) (Auto) 11.9 % (1.0-10.0) H Eosinophils (%) (Auto) 1.5 % (0.0-3.0) Basophils (%) (Auto) 0.8 % (0.0-2.0) Sodium Level 137 MMOL/L (136-145) Potassium Level 3.5 MMOL/L (3.5-5.1) Chloride Level 105 MMOL/L (98-107) Carbon Dioxide Level 21 MMOL/L (21-32) Anion Gap 11 mmol/L (5-15) Blood Urea Nitrogen 12 mg/dL (7-18) Creatinine 0.3 MG/DL (0.55-1.30) L Estimat Glomerular Filtration Rate > 60 mL/min (>60) Glucose Level 122 MG/DL (74-106) H Calcium Level 9.3 MG/DL (8.5-10.1) Iron Level 39 ug/dL (50-175) L Total Iron Binding Capacity 243 ug/dL (250-450) L Percent Iron Saturation 16 % (15-50) Unsaturated Iron Binding 204 ug/dL (112-346) Total Bilirubin 0.9 MG/DL (0.2-1.0) Aspartate Amino Transf (AST/SGOT) 18 U/L (15-37) Alanine Aminotransferase (ALT/SGPT) 29 U/L (12-78) Alkaline Phosphatase 69 U/L (46-116) Total Protein 8.0 G/DL (6.4-8.2) Albumin 3.3 G/DL (3.4-5.0) L Globulin 4.7 g/dL Albumin/Globulin Ratio 0.7 (1.0-2.7) L Amylase Level 49 U/L (25-115) Lipase 101 U/L (73-393) Carcinoembryonic Antigen Pending Height (Feet): 5 Height (Inches): 8.00 Weight (Pounds): 121 Medications Current Medications Medications (Trade) Dose Ordered Sig/Markel Route PRN Reason Start Time Stop Time Status Last Admin Dose Admin Acetaminophen (Tylenol) 650 mg Q4H PRN ORAL Prn mild pain/Temp > 101 04/09/18 07:00 05/09/18 06:59 Acetaminophen/ Hydrocodone Bitart ([place] 5/325) 1 tab Q6H PRN ORAL Mild Pain (Pain Scale 1-3) 04/09/18 07:00 04/16/18 06:59 Acetylcysteine (Mucomyst) 100 mg Q6HRT HHN 04/09/18 10:00 05/09/18 09:59 04/10/18 00:30 Al Hydroxide/Mg Hydroxide (Mylanta) 30 ml Q4H PRN GT Abdominal cramps 04/09/18 07:00 05/09/18 06:59 Albuterol/ Ipratropium (Albuterol/ Ipratropium) 3 ml Q6H PRN HHN Shortness of Breath 04/09/18 19:15 04/14/18 19:14 04/10/18 00:31 Baclofen (Lioresal) 10 mg THREE TIMES A DAY ORAL 04/09/18 09:00 05/09/18 08:59 04/10/18 09:47 Cefepime HCl 1 gm/ Dextrose 110 ml @ 220 mls/hr EVERY 12 HOURS IVPB 04/09/18 12:30 04/16/18 12:29 04/10/18 09:48 Dextrose (Dextrose 50%) 25 ml STAT PRN IV Hypoglycemia 04/09/18 07:00 05/09/18 06:59 Dextrose (Dextrose 50%) 50 ml STAT PRN IV Hypoglycemia 04/09/18 07:00 05/09/18 06:59 Dextrose/ Electrolytes 1,000 ml @ 75 mls/hr [id number] IV 04/09/18 14:30 05/09/18 14:29 04/10/18 04:14 Hydromorphone HCl (Dilaudid) 2 mg Q4H PRN GT Moderate Pain (Pain Scale 4-6) 04/09/18 07:45 04/16/18 07:44 Hydromorphone HCl (Dilaudid) 4 mg Q4H PRN GT Severe Pain (Pain Scale 7-10) 04/09/18 07:45 04/16/18 07:44 04/10/18 11:15 Iopamidol (Isovue-300 100ml) 100 ml NOW PRN INJ Radiology Procedure 04/08/18 22:00 Magnesium Hydroxide (Mom) 30 ml HSPRN PRN ORAL Constipation 04/09/18 07:00 05/09/18 06:59 Metronidazole (Flagyl) 500 mg Q8HR ORAL 04/10/18 08:00 04/17/18 07:59 04/10/18 09:48 Mineral Oil (Fleet's Mineral Oil Enema) 133 ml DAILYPRN PRN RECTAL Constipation 04/10/18 06:45 05/10/18 06:44 Morphine Sulfate (Morphine Sulfate) 4 mg Q4H PRN IVP Severe breakthrough pain 04/10/18 11:30 04/17/18 11:29 04/10/18 11:50 Pantoprazole (Protonix) 40 mg DAILY IVP 04/09/18 09:00 05/09/18 08:59 04/10/18 09:48 Venlafaxine HCl (Effexor) 25 mg Q12HR GT 04/09/18 21:00 05/09/18 08:59 04/10/18 09:48 Zolpidem Tartrate (Ambien) 5 mg HSPRN PRN ORAL Insomnia 04/09/18 21:00 04/16/18 20:59 04/10/18 02:07 Zolpidem Tartrate (Ambien) 10 mg HSPRN PRN ORAL Insomnia 04/09/18 21:00 04/16/18 20:59 04/09/18 22:06 Assessment/Plan Problem List: (1) Abdominal pain Assessment & Plan: epigastric abdominal pain. states 10/10 at max. intermittent without radiation. pain on palpation of epigastric region during exam. ultrasound and CT reviewed. no signs of acute cholecystitis. does have sludge and stones. rectosigmoid thickening on CT possible colitis. does not seem to have colitis and CT findings not very specific. gallbladder with stones and sludge but no inflammation. no pancreatitis. agree with EGD. may be gastris. will await EGD results. appreciate GI input no acute surgical intervention currently planned. thank you for this consultation. will follow with recs. ICD Codes: R10.9 - Unspecified abdominal pain SNOMED: 96226727 Qualifiers: Qualified Codes: R10.13 - Epigastric pain Status: stable Bry Fish April 10, 2018 14:16
[2018-04-10] MEDS: Acetaminophen 650mg/20.3ml ORAL PRN ×2 (15:46→22:48)
[2018-04-10 16:00] VITALS: BP 106/68
[2018-04-10 20:00] VITALS: BP 91/61
[2018-04-11] VITALS: BP 98/66
[2018-04-11] MEDS ORDERED: HYDROmorphone 2mg tab GT PRN (01:30)
[2018-04-11] MEDS: Albuterol/Ipratropium 3ml neb HHN PRN ×4 (02:06→20:41)
[2018-04-11 04:00] VITALS: BP 91/66
[2018-04-11] MEDS: D5 1/2NS w/KCl 20mEq 1,000 ML IV SCH ×2 (06:00→19:45)
[2018-04-11] MEDS: metroNIDAZOLE 500mg tab ORAL SCH ×3 (06:00→22:18)
[2018-04-11] MEDS ORDERED: HYDROmorphone 4mg tab GT PRN (07:00)
[2018-04-11 08:00] VITALS: BP 101/68
--- NOTE | 2018-04-11 08:23 | General Progress Note ---
Assessment/Plan Assessment/Plan IMPRESSION UGIB trach gallstones anemia possible colitis ALS leukocytosis possible uti PLAN gi and gs evaluation noted antibiotics as is on lagyl for now vent asis maintain meds feeds per gi dc once stable Subjective Allergies: Coded Allergies: No Known Allergies (Unverified , 04/08/18) Subjective care noted gi and gs appreciated cdif ordered but not yet back Objective Last 24 Hour Vital Signs Date Time Temp Pulse Resp B/P (MAP) Pulse Ox O2 Delivery O2 Flow Rate FiO2 04/11/18 07:40 78 14 95 Mechanical Ventilator 30 04/11/18 07:30 83 14 30 04/11/18 07:30 83 14 97 Mechanical Ventilator 30 04/11/18 07:30 30 04/11/18 05:14 69 23 30 04/11/18 04:00 30 04/11/18 04:00 99.0 77 15 91/66 99 Mechanical Ventilator 30 99.0 04/11/18 04:00 69 04/11/18 02:55 82 23 30 04/11/18 02:25 82 23 98 Mechanical Ventilator 30 04/11/18 02:04 30 04/11/18 02:04 82 23 98 Mechanical Ventilator 30 04/11/18 01:15 82 23 30 04/11/18 00:00 79 04/11/18 00:00 101.0 82 23 98/66 98 Mechanical Ventilator 30 101.0 04/11/18 00:00 30 04/10/18 23:15 95 14 30 04/10/18 22:48 101.0 04/10/18 20:43 95 14 30 04/10/18 20:00 110 04/10/18 20:00 98.1 95 14 91/61 99 Mechanical Ventilator 30 98.1 04/10/18 20:00 30 04/10/18 19:29 98 14 30 04/10/18 18:43 98.5 04/10/18 18:33 101.7 04/10/18 18:25 101.7 04/10/18 16:51 91 20 30 04/10/18 16:11 101.7 04/10/18 16:00 30 04/10/18 16:00 101.7 97 16 106/68 100 Mechanical Ventilator 30 101.7 04/10/18 16:00 127 04/10/18 15:46 101.7 04/10/18 15:26 88 14 99 Mechanical Ventilator 30 04/10/18 15:15 92 14 30 04/10/18 15:13 88 14 99 Mechanical Ventilator 30 04/10/18 14:17 98.2 04/10/18 13:05 93 14 30 04/10/18 13:05 91 14 99 Mechanical Ventilator 30 04/10/18 13:05 Mechanical Ventilator 04/10/18 12:00 98.2 96 18 156/99 100 Mechanical Ventilator 30 98.2 04/10/18 12:00 30 04/10/18 12:00 81 04/10/18 11:50 98.6 04/10/18 11:15 98.6 04/10/18 10:47 90 14 30 04/10/18 08:34 92 14 30 Intake and Output 04/10/18 04/11/18 19:00 07:00 Intake Total 897.5 ml 1685 ml Output Total 600 ml Balance 897.5 ml 1085 ml Intake Free Water 750 ml IV Total 897.5 ml 935 ml Output Urine Total 600 ml # Voids 5 Height (Feet): 5 Height (Inches): 8.00 Weight (Pounds): 121 Objective WDWN NAD clear breath sounds bilaterally without rhonchi or wheeze [id number] without MRG NABS mildly tender no CCE quad trach Bob Cassidy MD April 11, 2018 08:23
[2018-04-11] MEDS: Cefepime HCl 1 GM in D5W 110 ML IVPB SCH ×2 (09:00→21:11)
[2018-04-11] MEDS: Pantoprazole Inj IVP SCH (09:00)
[2018-04-11] MEDS: Venlafaxine 25mg tab GT SCH ×2 (09:00→21:11)
[2018-04-11] MEDS: Morphine Sulfate 4mg/ml Inj IVP PRN ×3 (09:01→23:11)
[2018-04-11] MEDS: DiphenhydrAMINE 50mg/ml Inj IVP PRN (10:57)
--- NOTE | 2018-04-11 11:15 | GI Progress Note ---
Assessment/Plan Problems: (1) Abdominal pain ICD Codes: R10.9 - Unspecified abdominal pain SNOMED: 45494176 Qualifiers: Qualified Codes: R10.13 - Epigastric pain (2) Colitis ICD Codes: K52.9 - Noninfective gastroenteritis and colitis, unspecified SNOMED: 44774382 (3) UGIB (upper gastrointestinal bleed) ICD Codes: K92.2 - Gastrointestinal hemorrhage, unspecified SNOMED: 61215068 (4) Tracheostomy dependent ICD Codes: Z93.0 - Tracheostomy status SNOMED: 050697114, 951051887 Status: unchanged Status Narrative Discussed with Dr. Avalos. Assessment/Plan abd us>>> distended GB with stones EGD cancelled, pt refused wishes to be transferred to [place] NPO anemia work up stool studies IVF pain control repeat labs Subjective Subjective refused EGD, wants to be [facility] Objective Last 24 Hour Vital Signs Date Time Temp Pulse Resp B/P (MAP) Pulse Ox O2 Delivery O2 Flow Rate FiO2 04/11/18 10:41 97.5 04/11/18 09:29 82 14 30 04/11/18 09:01 97.5 04/11/18 08:00 30 04/11/18 08:00 97.5 84 18 101/68 99 Mechanical Ventilator 30 97.5 04/11/18 08:00 76 04/11/18 07:40 78 14 95 Mechanical Ventilator 30 04/11/18 07:30 83 14 30 04/11/18 07:30 83 14 97 Mechanical Ventilator 30 04/11/18 07:30 30 04/11/18 05:14 69 23 30 04/11/18 04:00 30 04/11/18 04:00 99.0 77 15 91/66 99 Mechanical Ventilator 30 99.0 04/11/18 04:00 69 04/11/18 02:55 82 23 30 04/11/18 02:25 82 23 98 Mechanical Ventilator 30 04/11/18 02:04 30 04/11/18 02:04 82 23 98 Mechanical Ventilator 30 04/11/18 01:15 82 23 30 04/11/18 00:00 79 04/11/18 00:00 101.0 82 23 98/66 98 Mechanical Ventilator 30 101.0 04/11/18 00:00 30 04/10/18 23:15 95 14 30 04/10/18 22:48 101.0 04/10/18 20:43 95 14 30 04/10/18 20:00 110 04/10/18 20:00 98.1 95 14 91/61 99 Mechanical Ventilator 30 98.1 04/10/18 20:00 30 04/10/18 19:29 98 14 30 04/10/18 18:43 98.5 04/10/18 18:33 101.7 04/10/18 16:51 91 20 30 04/10/18 16:11 101.7 04/10/18 16:00 30 04/10/18 16:00 101.7 97 16 106/68 100 Mechanical Ventilator 30 101.7 04/10/18 16:00 127 04/10/18 15:46 101.7 04/10/18 15:26 88 14 99 Mechanical Ventilator 30 04/10/18 15:15 92 14 30 04/10/18 15:13 88 14 99 Mechanical Ventilator 30 04/10/18 14:17 98.2 04/10/18 13:05 93 14 30 04/10/18 13:05 91 14 99 Mechanical Ventilator 30 04/10/18 13:05 Mechanical Ventilator 04/10/18 12:00 98.2 96 18 156/99 100 Mechanical Ventilator 30 98.2 04/10/18 12:00 30 04/10/18 12:00 81 04/10/18 11:50 98.6 04/10/18 11:15 98.6 Intake and Output 04/10/18 04/11/18 19:00 07:00 Intake Total 897.5 ml 1685 ml Output Total 600 ml Balance 897.5 ml 1085 ml Intake Free Water 750 ml IV Total 897.5 ml 935 ml Output Urine Total 600 ml # Voids 5 Height (Feet): 5 Height (Inches): 8.00 Weight (Pounds): 121 General Appearance: WD/WN, no apparent distress, alert Cardiovascular: normal rate Respiratory/Chest: normal breath sounds, no respiratory distress Abdominal Exam: normal bowel sounds, non tender, soft Extremities: normal range of motion, non-tender More Santana [employer] April 11, 2018 11:15
[2018-04-11] MEDS: HYDROmorphone 4mg tab GT PRN ×2 (11:49→18:41)
[2018-04-11 12:00] VITALS: BP 85/55
--- NOTE | 2018-04-11 13:14 | General Surgery Progress Note ---
General Surgery-Progress Note Subjective Symptoms: improved Additional Comments pain epigastric but improved. tolerated with pain meds. wants to be transferred to [facility]. refused EGD today for transfer Objective Last 24 Hour Vital Signs Date Time Temp Pulse Resp B/P (MAP) Pulse Ox O2 Delivery O2 Flow Rate FiO2 04/11/18 12:00 30 04/11/18 11:49 97.5 04/11/18 11:26 87 16 30 04/11/18 10:41 97.5 04/11/18 09:29 82 14 30 04/11/18 09:01 97.5 04/11/18 08:00 30 04/11/18 08:00 97.5 84 18 101/68 99 Mechanical Ventilator 30 97.5 04/11/18 08:00 76 04/11/18 07:40 78 14 95 Mechanical Ventilator 30 04/11/18 07:30 83 14 30 04/11/18 07:30 83 14 97 Mechanical Ventilator 30 04/11/18 07:30 30 04/11/18 05:14 69 23 30 04/11/18 04:00 30 04/11/18 04:00 99.0 77 15 91/66 99 Mechanical Ventilator 30 99.0 04/11/18 04:00 69 04/11/18 02:55 82 23 30 04/11/18 02:25 82 23 98 Mechanical Ventilator 30 04/11/18 02:04 30 04/11/18 02:04 82 23 98 Mechanical Ventilator 30 04/11/18 01:15 82 23 30 04/11/18 00:00 79 04/11/18 00:00 101.0 82 23 98/66 98 Mechanical Ventilator 30 101.0 04/11/18 00:00 30 04/10/18 23:15 95 14 30 04/10/18 22:48 101.0 04/10/18 20:43 95 14 30 04/10/18 20:00 110 04/10/18 20:00 98.1 95 14 91/61 99 Mechanical Ventilator 30 98.1 04/10/18 20:00 30 04/10/18 19:29 98 14 30 04/10/18 18:43 98.5 04/10/18 18:33 101.7 04/10/18 16:51 91 20 30 04/10/18 16:11 101.7 04/10/18 16:00 30 04/10/18 16:00 101.7 97 16 106/68 100 Mechanical Ventilator 30 101.7 04/10/18 16:00 127 04/10/18 15:46 101.7 04/10/18 15:26 88 14 99 Mechanical Ventilator 30 04/10/18 15:15 92 14 30 04/10/18 15:13 88 14 99 Mechanical Ventilator 30 04/10/18 14:17 98.2 I&O Intake and Output 04/10/18 04/11/18 19:00 07:00 Intake Total 897.5 ml 1685 ml Output Total 600 ml Balance 897.5 ml 1085 ml Intake Free Water 750 ml IV Total 897.5 ml 935 ml Output Urine Total 600 ml # Voids 5 Cardiovascular: RSR Respiratory: clear Abdomen: soft, flat, non-tender, present bowel sounds Extremities: no cyanosis Plan Problems: (1) Abdominal pain Assessment & Plan: epigastric abdominal pain. states 10/10 at max. intermittent without radiation. pain on palpation of epigastric region during exam. ultrasound and CT reviewed. no signs of acute cholecystitis. does have sludge and stones. rectosigmoid thickening on CT possible colitis. does not seem to have colitis and CT findings not very specific. gallbladder with stones and sludge but no inflammation. no pancreatitis. agree with EGD. may be gastris. will await EGD results. appreciate GI input -patient refused EGD for now. wants to be transferred to [place] okay to transfer from surgical standpoint. can resume work up there no acute surgical intervention currently planned. thank you for this consultation. will follow with recs. Bry Fish April 11, 2018 13:14
--- NOTE | 2018-04-11 13:56 | Cardiology Report ---
APPROVED REPORT EKG Measurement Heart [id number] MD [id number] Sinus tachycardia Right atrial enlargement Borderline ECG
[2018-04-11 16:00] VITALS: BP 115/76
[2018-04-11 20:00] VITALS: BP 111/65
[2018-04-11] MEDS: Zolpidem 5mg tab ORAL PRN (22:18)
[2018-04-12] VITALS: BP 100/62
[2018-04-12] MEDS: Albuterol/Ipratropium 3ml neb HHN PRN ×4 (01:46→19:10)
[2018-04-12] MEDS: Zolpidem 5mg tab ORAL PRN ×2 (02:05→22:13)
[2018-04-12 04:00] VITALS: BP 100/60
[2018-04-12] MEDS: metroNIDAZOLE 500mg tab ORAL SCH ×3 (05:51→22:13)
[2018-04-12] MEDS: HYDROmorphone 4mg tab GT PRN ×3 (06:07→22:13)
--- NOTE | 2018-04-12 07:44 | General Progress Note ---
Assessment/Plan Assessment/Plan IMPRESSION UGIB trach gallstones anemia possible colitis ALS leukocytosis possible uti PLAN gi and gs evaluation noted refused EGD antibiotics ?dc on flagyl for now vent asis maintain meds feeds per [facility] Subjective Allergies: Coded Allergies: No Known Allergies (Unverified , 04/08/18) Subjective care noted gi and gs appreciated cdif ordered but not yet back Objective Last 24 Hour Vital Signs Date Time Temp Pulse Resp B/P (MAP) Pulse Ox O2 Delivery O2 Flow Rate FiO2 04/12/18 07:12 66 14 100 Mechanical Ventilator 04/12/18 07:12 30 04/12/18 06:53 61 14 30 04/12/18 06:52 62 14 99 Mechanical Ventilator 30 04/12/18 05:33 81 15 30 04/12/18 04:00 107 04/12/18 04:00 30 04/12/18 04:00 98.6 65 14 100/60 100 Mechanical Ventilator 30 98.6 04/12/18 02:45 83 16 30 04/12/18 01:57 94 14 99 Mechanical Ventilator 30 04/12/18 01:47 30 04/12/18 01:46 95 19 99 Mechanical Ventilator 30 04/12/18 00:45 81 16 30 04/12/18 00:06 100 04/12/18 00:00 99.2 96 14 100/62 100 Mechanical Ventilator 30 99.2 04/12/18 00:00 30 04/11/18 23:13 89 16 30 04/11/18 20:49 82 14 100 Mechanical Ventilator 30 04/11/18 20:46 30 04/11/18 20:45 84 19 99 Mechanical Ventilator 30 04/11/18 20:41 84 16 30 04/11/18 20:00 30 04/11/18 20:00 99.0 85 29 111/65 100 Mechanical Ventilator 30 99.0 04/11/18 19:27 88 04/11/18 18:41 97.5 04/11/18 17:06 97.5 04/11/18 16:58 86 16 30 04/11/18 16:03 97.5 04/11/18 16:00 77 04/11/18 16:00 30 04/11/18 16:00 98.0 76 29 115/76 100 Mechanical Ventilator 30 98.0 5/21/18 15:09 80 24 30 04/11/18 13:25 79 14 99 Mechanical Ventilator 30 04/11/18 13:15 97.5 04/11/18 13:10 79 14 96 Mechanical Ventilator 30 04/11/18 13:10 30 04/11/18 13:06 75 14 30 04/11/18 12:00 30 04/11/18 12:00 85 04/11/18 12:00 97.7 63 14 85/55 100 Mechanical Ventilator 30 97.7 04/11/18 11:49 97.5 04/11/18 11:26 87 16 30 04/11/18 09:29 82 14 30 04/11/18 09:01 97.5 04/11/18 08:00 30 04/11/18 08:00 97.5 84 18 101/68 99 Mechanical Ventilator 30 97.5 04/11/18 08:00 76 Intake and Output 04/11/18 04/12/18 19:00 07:00 Intake Total 1010 ml 1028 ml Output Total 875 ml 800 ml Balance 135 ml 228 ml Intake Free Water 300 ml IV Total 710 ml 1028 ml Output Urine Total 875 ml 800 ml # Voids 3 2 Height (Feet): 5 Height (Inches): 8.00 Weight (Pounds): 121 Objective WDWN NAD clear breath sounds bilaterally without rhonchi or wheeze [id number] without MRG NABS mildly tender no CCE quad trach Bob Cassidy MD April 12, 2018 07:44
[2018-04-12 08:00] VITALS: BP 102/64
[2018-04-12] MEDS: Cefepime HCl 1 GM in D5W 110 ML IVPB SCH ×2 (08:19→21:00)
[2018-04-12] MEDS: Pantoprazole Inj IVP SCH (08:19)
[2018-04-12] MEDS: Venlafaxine 25mg tab GT SCH ×2 (08:19→22:15)
[2018-04-12] MEDS: D5 1/2NS w/KCl 20mEq 1,000 ML IV SCH ×2 (08:22→21:01)
[2018-04-12] MEDS: Morphine Sulfate 4mg/ml Inj IVP PRN ×2 (09:52→16:23)
[2018-04-12 12:00] VITALS: BP 97/70
[2018-04-12 16:00] VITALS: BP 112/73
[2018-04-12] MEDS ORDERED: Heparin 2000 units/Ns 1000ml INJ PRN (16:00)
[2018-04-12] MEDS ORDERED: Lidocaine 1% Plain 30 ml INJ PRN (16:00)
[2018-04-12 20:00] VITALS: BP 125/73
[2018-04-12] MEDS: Dyna-Hex 2% Top Sol 2oz TOPIC SCH (20:00)
--- NOTE | 2018-04-12 22:58 | General Progress Note ---
Assessment/Plan Assessment/Plan Assessement - UGIB - ALS - Resp failure - dysphagia - Anemia Recommendations - No EGD per pt refusal - Resume TF - follow labs - await transfer to [place] Subjective Allergies: Coded Allergies: No Known Allergies (Unverified , 04/08/18) Subjective above noted resting comfortably TF orders given to RN awaits transfer to [place] Objective Last 24 Hour Vital Signs Date Time Temp Pulse Resp B/P (MAP) Pulse Ox O2 Delivery O2 Flow Rate FiO2 04/12/18 22:13 97.4 04/12/18 20:58 65 18 30 04/12/18 19:44 69 17 100 Mechanical Ventilator 04/12/18 19:13 67 18 97 Mechanical Ventilator 30 04/12/18 19:13 30 04/12/18 19:11 67 18 30 04/12/18 17:02 61 14 30 04/12/18 16:53 97.4 04/12/18 16:23 97.4 04/12/18 16:00 30 04/12/18 16:00 97.4 66 19 112/73 100 Mechanical Ventilator 30 97.4 04/12/18 16:00 74 04/12/18 15:11 97.4 04/12/18 14:59 64 15 30 04/12/18 14:12 97.4 04/12/18 13:40 68 15 100 Mechanical Ventilator 04/12/18 13:40 30 04/12/18 13:17 65 19 100 Mechanical Ventilator 30 04/12/18 12:57 73 19 30 04/12/18 12:00 97.4 70 20 97/70 100 Mechanical Ventilator 30 97.4 04/12/18 12:00 30 04/12/18 12:00 70 04/12/18 11:05 63 14 30 04/12/18 09:52 97.8 04/12/18 08:50 74 14 30 04/12/18 08:00 30 04/12/18 08:00 97.8 93 20 102/64 99 Mechanical Ventilator 30 97.8 04/12/18 08:00 72 04/12/18 07:12 66 14 100 Mechanical Ventilator 04/12/18 07:12 30 04/12/18 06:53 61 14 30 04/12/18 06:52 62 14 99 Mechanical Ventilator 30 04/12/18 05:33 81 15 30 04/12/18 04:00 107 04/12/18 04:00 30 04/12/18 04:00 98.6 65 14 100/60 100 Mechanical Ventilator 30 98.6 04/12/18 02:45 83 16 30 04/12/18 01:57 94 14 99 Mechanical Ventilator 30 04/12/18 01:47 30 04/12/18 01:46 95 19 99 Mechanical Ventilator 30 04/12/18 00:45 81 16 30 04/12/18 00:06 100 04/12/18 00:00 99.2 96 14 100/62 100 Mechanical Ventilator 30 99.2 04/12/18 00:00 30 04/11/18 23:13 89 16 30 Intake and Output 04/11/18 04/12/18 19:00 07:00 Intake Total 1010 ml 1028 ml Output Total 875 ml 800 ml Balance 135 ml 228 ml Intake Free Water 300 ml IV Total 710 ml 1028 ml Output Urine Total 875 ml 800 ml # Voids 3 2 Height (Feet): 5 Height (Inches): 8.00 Weight (Pounds): 121 Objective WDWN man NCAT coarse BS RR abd soft flat no edema Akiko Dye MD April 12, 2018 22:58
[2018-04-13] MEDS: Acetaminophen 650mg/20.3ml ORAL PRN (02:01)
[2018-04-13] MEDS: Zolpidem 5mg tab ORAL PRN ×2 (02:02→22:31)
[2018-04-13] MEDS: Morphine Sulfate 4mg/ml Inj IVP PRN ×3 (02:24→17:17)
[2018-04-13] MEDS: metroNIDAZOLE 500mg tab ORAL SCH ×3 (06:38→21:07)
[2018-04-13] MEDS: Albuterol/Ipratropium 3ml neb HHN PRN ×3 (06:58→19:49)
[2018-04-13 08:00] VITALS: BP 96/22
[2018-04-13] MEDS: Cefepime HCl 1 GM in D5W 110 ML IVPB SCH (09:11)
[2018-04-13] MEDS: Venlafaxine 25mg tab GT SCH ×2 (09:11→21:05)
[2018-04-13] MEDS: Pantoprazole Inj IVP SCH (09:11)
--- NOTE | 2018-04-13 09:44 | General Progress Note ---
Assessment/Plan Assessment/Plan IMPRESSION UGIB? trach gallstones anemia possible colitis ALS leukocytosis possible uti- no cultures available PLAN gi and gs evaluation noted refused EGD antibiotics - taper off on flagyl for now vent asis maintain meds feeds per gi [facility] Subjective Allergies: Coded Allergies: No Known Allergies (Unverified , 04/08/18) Subjective care noted gi and gs appreciated cdif ordered but not yet back another order placed gi ordered feeds pt refused EGD Objective Last 24 Hour Vital Signs Date Time Temp Pulse Resp B/P (MAP) Pulse Ox O2 Delivery O2 Flow Rate FiO2 04/13/18 09:20 72 18 30 04/13/18 07:07 67 16 100 Mechanical Ventilator 04/13/18 07:02 67 18 30 04/13/18 07:02 30 04/13/18 07:01 67 16 99 Mechanical Ventilator 30 04/13/18 05:46 71 18 30 04/13/18 04:00 87 04/13/18 04:00 30 04/13/18 03:51 68 16 30 04/13/18 02:54 97.4 04/13/18 02:24 97.4 04/13/18 01:19 71 16 99 Mechanical Ventilator 30 04/13/18 01:19 Mechanical Ventilator 04/13/18 01:18 62 16 30 04/13/18 00:00 30 04/13/18 00:00 94 04/12/18 23:37 62 18 30 04/12/18 23:12 97.4 04/12/18 22:13 97.4 04/12/18 20:58 65 18 30 04/12/18 20:00 98.2 66 19 125/73 100 Mechanical Ventilator 30 98.2 04/12/18 19:44 69 17 100 Mechanical Ventilator 04/12/18 19:13 67 18 97 Mechanical Ventilator 30 04/12/18 19:13 30 04/12/18 19:11 67 18 30 04/12/18 17:02 61 14 30 04/12/18 16:23 97.4 04/12/18 16:00 30 04/12/18 16:00 97.4 66 19 112/73 100 Mechanical Ventilator 30 97.4 04/12/18 16:00 74 04/12/18 14:59 64 15 30 04/12/18 14:12 97.4 04/12/18 13:40 68 15 100 Mechanical Ventilator 04/12/18 13:40 30 04/12/18 13:17 65 19 100 Mechanical Ventilator 30 04/12/18 12:57 73 19 30 04/12/18 12:00 97.4 70 20 97/70 100 Mechanical Ventilator 30 97.4 04/12/18 12:00 30 04/12/18 12:00 70 04/12/18 11:05 63 14 30 04/12/18 09:52 97.8 Intake and Output 04/12/18 04/13/18 19:00 07:00 Intake Total 1310 ml 1235 ml Output Total 800 ml 700 ml Balance 510 ml 535 ml Intake Free Water 300 ml 300 ml IV Total 1010 ml 935 ml Output Urine Total 800 ml 700 ml # Voids 3 3 Height (Feet): 5 Height (Inches): 8.00 Weight (Pounds): 121 Objective WDWN NAD clear breath sounds bilaterally without rhonchi or wheeze [id number] without MRG NABS non tender ;GT in place no CCE quad trach Bob Cassidy MD April 13, 2018 09:44
[2018-04-13] MEDS: D5 1/2NS w/KCl 20mEq 1,000 ML IV SCH (11:37)
[2018-04-13 12:00] VITALS: BP 94/63
[2018-04-13 12:37] LABS: BASOPHILS % (AUTO) 1.2 % (0.0-2.0); EOSINOPHILS % (AUTO) 2.2 % (0.0-3.0); HEMATOCRIT 30.8 % (42.0-52.0); LYMPHOCYTES % (AUTO) 12.7 % (20.0-45.0); MEAN CORPUSCULAR VOLUME 92 FL (80-99); MONOCYTES % (AUTO) 8.9 % (1.0-10.0); NEUTROPHILS % (AUTO) 75.1 % (45.0-75.0); PLATELET COUNT 294 K/UL (150-450); RED BLOOD COUNT 3.35 M/UL (4.70-6.10); RED CELL DISTRIBUTION WIDTH 12.4 % (11.6-14.8); WHITE BLOOD COUNT 8.9 K/UL (4.8-10.8)
--- NOTE | 2018-04-13 12:57 | General Surgery Progress Note ---
General Surgery-Progress Note Subjective Additional Comments no acute events. labs improved. stopped morphine for a few hours and noted epigastric pain again which resolved after administration of morphine Objective Last 24 Hour Vital Signs Date Time Temp Pulse Resp B/P (MAP) Pulse Ox O2 Delivery O2 Flow Rate FiO2 04/13/18 12:45 99.2 04/13/18 12:00 25 04/13/18 10:50 60 18 25 04/13/18 09:20 72 18 30 04/13/18 08:00 99.2 63 14 96/22 100 Mechanical Ventilator 30 99.2 04/13/18 08:00 63 04/13/18 08:00 30 04/13/18 07:07 67 16 100 Mechanical Ventilator 04/13/18 07:02 67 18 30 04/13/18 07:02 30 04/13/18 07:01 67 16 99 Mechanical Ventilator 30 04/13/18 05:46 71 18 30 04/13/18 04:00 87 04/13/18 04:00 30 04/13/18 03:51 68 16 30 04/13/18 02:54 97.4 04/13/18 02:24 97.4 04/13/18 01:19 71 16 99 Mechanical Ventilator 30 04/13/18 01:19 Mechanical Ventilator 04/13/18 01:18 62 16 30 04/13/18 00:00 30 04/13/18 00:00 94 04/12/18 23:37 62 18 30 04/12/18 23:12 97.4 04/12/18 22:13 97.4 04/12/18 20:58 65 18 30 04/12/18 20:00 98.2 66 19 125/73 100 Mechanical Ventilator 30 98.2 04/12/18 19:44 69 17 100 Mechanical Ventilator 04/12/18 19:13 67 18 97 Mechanical Ventilator 30 04/12/18 19:13 30 04/12/18 19:11 67 18 30 04/12/18 17:02 61 14 30 04/12/18 16:23 97.4 04/12/18 16:00 30 04/12/18 16:00 97.4 66 19 112/73 100 Mechanical Ventilator 30 97.4 04/12/18 16:00 74 04/12/18 14:59 64 15 30 04/12/18 14:12 97.4 04/12/18 13:40 68 15 100 Mechanical Ventilator 04/12/18 13:40 30 04/12/18 13:17 65 19 100 Mechanical Ventilator 30 04/12/18 12:57 73 19 30 I&O Intake and Output 04/12/18 04/13/18 19:00 07:00 Intake Total 1310 ml 1235 ml Output Total 800 ml 700 ml Balance 510 ml 535 ml Intake Free Water 300 ml 300 ml IV Total 1010 ml 935 ml Output Urine Total 800 ml 700 ml # Voids 3 3 Cardiovascular: RSR Respiratory: clear Abdomen: soft, non-tender, present bowel sounds Extremities: no cyanosis Laboratory Tests Test 04/13/18 12:20 White Blood Count 8.9 K/UL (4.8-10.8) Red Blood Count 3.35 M/UL (4.70-6.10) L Hemoglobin 10.0 G/DL (14.2-18.0) L Hematocrit 30.8 % (42.0-52.0) L Mean Corpuscular Volume 92 FL (80-99) Mean Corpuscular Hemoglobin 30.0 PG (27.0-31.0) Mean Corpuscular Hemoglobin Concent 32.6 G/DL (32.0-36.0) Red Cell Distribution Width 12.4 % (11.6-14.8) Platelet Count 294 K/UL (150-450) Mean Platelet Volume 7.0 FL (6.5-10.1) Neutrophils (%) (Auto) 75.1 % (45.0-75.0) H Lymphocytes (%) (Auto) 12.7 % (20.0-45.0) L Monocytes (%) (Auto) 8.9 % (1.0-10.0) Eosinophils (%) (Auto) 2.2 % (0.0-3.0) Basophils (%) (Auto) 1.2 % (0.0-2.0) Sodium Level Pending Potassium Level Pending Chloride Level Pending Carbon Dioxide Level Pending Blood Urea Nitrogen Pending Creatinine Pending Estimat Glomerular Filtration Rate Pending Glucose Level Pending Calcium Level Pending Total Bilirubin Pending Aspartate Amino Transf (AST/SGOT) Pending Alanine Aminotransferase (ALT/SGPT) Pending Alkaline Phosphatase Pending Total Protein Pending Albumin Pending Globulin Pending Plan Problems: (1) Abdominal pain Assessment & Plan: epigastric abdominal pain. states 10/10 at max. intermittent without radiation. pain on palpation of epigastric region during exam. ultrasound and CT reviewed. no signs of acute cholecystitis. does have sludge and stones. rectosigmoid thickening on CT possible colitis. does not seem to have colitis and CT findings not very specific. gallbladder with stones and sludge but no inflammation. no pancreatitis. agree with EGD. may be gastris. will await EGD results. appreciate GI input -patient now agreeable to EGD. okay to transfer from surgical standpoint. can resume work up there no acute surgical intervention currently planned. thank you for this consultation. will follow with recs. Bry Fish April 13, 2018 12:57
[2018-04-13 13:13] LABS: ALANINE AMINOTRANSFERASE 145 U/L (12-78); ALBUMIN/GLOBULIN RATIO 0.6 (1.0-2.7); ALKALINE PHOSPHATASE 172 U/L (46-116); ANION GAP 9 mmol/L (5-15); ASPARTATE AMINO TRANSFERASE 29 U/L (15-37); BILIRUBIN,TOTAL 1.4 MG/DL (0.2-1.0); BLOOD UREA NITROGEN 4 mg/dL (7-18); CALCIUM 9.2 MG/DL (8.5-10.1); CARBON DIOXIDE 23 MMOL/L (21-32); CHLORIDE 105 MMOL/L (98-107); CREATININE 0.3 MG/DL (0.55-1.30); POTASSIUM 3.7 MMOL/L (3.5-5.1); SODIUM 137 MMOL/L (136-145)
[2018-04-13 13:14] LABS: BILIRUBIN,DIRECT 0.7 MG/DL (0.0-0.3)
--- NOTE | 2018-04-13 15:20 | Diagnostic Imaging Report ---
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 The right upper extremity was prepped with alcohol. All elements of maximal sterile barrier technique were followed including usage of a cap, mask, sterile gown, sterile gloves, hand hygiene and a large sterile sheet. Sonographic evaluation of the upper extremity was performed demonstrating a patent and compressible basilic vein. Access was obtained under real-time ultrasound guidance (with utilization of sterile gel and sterile probe cover) and digital image was saved and archived. An .018 wire was introduced. Needle exchanged for a 5 Fijian peel-away sheath. Measurements were obtained. A 5 Fijian dual-lumen Power PICC line catheter was cut to 35 cm and introduced over the wire. Peel-away sheath and wire were removed.Catheter was secured to the skin using 2-0 Prolene suture. Both ports aspirate and flush easily. Post procedure chest x-ray demonstrates good position of the PICC line catheter within the SVC. Impression: Successful placement of an upper extremity PICC line catheter
[2018-04-13] MEDS: HYDROmorphone 2mg tab GT PRN (15:51)
[2018-04-13 16:00] VITALS: BP 111/71
[2018-04-13 20:00] VITALS: BP 112/74
[2018-04-13] MEDS: Dyna-Hex 2% Top Sol 2oz TOPIC SCH (20:00)
[2018-04-13] MEDS: HYDROmorphone 4mg tab GT PRN (21:07)
--- NOTE | 2018-04-13 22:08 | General Progress Note ---
Assessment/Plan Assessment/Plan Assessement - UGIB - ALS - Resp failure - dysphagia - Anemia Recommendations - EGD in am - Resume TF - follow labs - await transfer to [place] Subjective Allergies: Coded Allergies: No Known Allergies (Unverified , 04/08/18) Subjective above noted now agrreeable to EGD says still with (R) sided abd pain (intermittent) Objective Last 24 Hour Vital Signs Date Time Temp Pulse Resp B/P (MAP) Pulse Ox O2 Delivery O2 Flow Rate FiO2 04/13/18 20:39 70 24 21 04/13/18 20:00 21 04/13/18 19:52 80 16 100 Mechanical Ventilator 21 04/13/18 19:50 21 04/13/18 19:49 73 16 98 Mechanical Ventilator 21 04/13/18 19:40 73 28 21 04/13/18 17:45 99.2 04/13/18 17:25 63 16 21 04/13/18 17:17 99.2 04/13/18 16:50 99.2 04/13/18 16:00 98.0 70 14 111/71 98 Mechanical Ventilator 21 98.0 04/13/18 16:00 71 04/13/18 16:00 21 04/13/18 15:15 61 16 21 04/13/18 13:52 70 16 100 Mechanical Ventilator 04/13/18 13:34 21 04/13/18 13:33 65 16 99 Mechanical Ventilator 21 04/13/18 13:00 62 18 25 04/13/18 12:45 99.2 04/13/18 12:00 77 04/13/18 12:00 25 04/13/18 12:00 97.7 59 14 94/63 98 Mechanical Ventilator 25 97.7 04/13/18 10:50 60 18 25 04/13/18 09:20 72 18 30 04/13/18 08:00 99.2 63 14 96/22 100 Mechanical Ventilator 30 99.2 04/13/18 08:00 63 04/13/18 08:00 30 04/13/18 07:07 67 16 100 Mechanical Ventilator 04/13/18 07:02 67 18 30 04/13/18 07:02 30 04/13/18 07:01 67 16 99 Mechanical Ventilator 30 04/13/18 05:46 71 18 30 04/13/18 04:00 87 04/13/18 04:00 30 04/13/18 03:51 68 16 30 04/13/18 02:24 97.4 04/13/18 01:19 71 16 99 Mechanical Ventilator 30 04/13/18 01:19 Mechanical Ventilator 04/13/18 01:18 62 16 30 04/13/18 00:00 30 04/13/18 00:00 94 04/12/18 23:37 62 18 30 04/12/18 23:12 97.4 04/12/18 22:13 97.4 Intake and Output 04/12/18 04/13/18 19:00 07:00 Intake Total 1310 ml 1310 ml Output Total 800 ml 700 ml Balance 510 ml 610 ml Intake Free Water 300 ml 300 ml IV Total 1010 ml 1010 ml Output Urine Total 800 ml 700 ml # Voids 3 3 Laboratory Tests 04/13/18 12:20: White Blood Count 8.9, Red Blood Count 3.35L, Hemoglobin 10.0L, Hematocrit 30.8L , Mean Corpuscular Volume 92, Mean Corpuscular Hemoglobin 30.0, Mean Corpuscular Hemoglobin Concent 32.6, Red Cell Distribution Width 12.4, Platelet Count 294, Mean Platelet Volume 7.0, Neutrophils (%) (Auto) 75.1H, Lymphocytes ( %) (Auto) 12.7L, Monocytes (%) (Auto) 8.9, Eosinophils (%) (Auto) 2.2, Basophils (%) (Auto) 1.2, Sodium Level 137, Potassium Level 3.7, Chloride Level 105, Carbon Dioxide Level 23, Anion Gap 9, Blood Urea Nitrogen 4L, Creatinine 0.3L, Estimat Glomerular Filtration Rate > 60, Glucose Level 155H, Calcium Level 9.2, Total Bilirubin 1.4H, Direct Bilirubin 0.7H, Aspartate Amino Transf ( AST/SGOT) 29, Alanine Aminotransferase (ALT/SGPT) 145H, Alkaline Phosphatase 172H, Total Protein 7.9, Albumin 3.0L, Globulin 4.9, Albumin/Globulin Ratio 0.6L Height (Feet): 5 Height (Inches): 8.00 Weight (Pounds): 121 General Appearance: no apparent distress, alert, lethargic EENT: PERRL/EOMI Objective WDWN man NCAT coarse BS RR abd soft flat, (+) (R) sided TTP - fallon RUQ no edema Akiko Dye MD April 13, 2018 22:08
[2018-04-14] VITALS: BP 109/70
[2018-04-14] MEDS: D5 1/2NS w/KCl 20mEq 1,000 ML IV SCH ×2 (00:58→13:41)
[2018-04-14] MEDS: Morphine Sulfate 4mg/ml Inj IVP PRN ×4 (00:59→19:31)
[2018-04-14] MEDS: Albuterol/Ipratropium 3ml neb HHN PRN ×4 (02:03→19:05)
[2018-04-14] MEDS: Zolpidem 5mg tab ORAL PRN ×2 (02:20→22:27)
[2018-04-14 04:00] VITALS: BP 110/64
[2018-04-14] MEDS: HYDROmorphone 4mg tab GT PRN ×2 (04:23→22:28)
[2018-04-14 06:13] LABS: BASOPHILS % (AUTO) 0.9 % (0.0-2.0); HEMATOCRIT 27.1 % (42.0-52.0); HEMOGLOBIN 9.4 G/DL (14.2-18.0); LYMPHOCYTES % (AUTO) 14.2 % (20.0-45.0); MEAN CORPUSCULAR VOLUME 92 FL (80-99); MONOCYTES % (AUTO) 9.3 % (1.0-10.0); NEUTROPHILS % (AUTO) 74.7 % (45.0-75.0); PLATELET COUNT 306 K/UL (150-450); RED BLOOD COUNT 2.95 M/UL (4.70-6.10); RED CELL DISTRIBUTION WIDTH 12.4 % (11.6-14.8); WHITE BLOOD COUNT 11.6 K/UL (4.8-10.8)
[2018-04-14] MEDS: metroNIDAZOLE 500mg tab ORAL SCH ×3 (06:25→22:28)
[2018-04-14 06:38] LABS: ALANINE AMINOTRANSFERASE 110 U/L (12-78); ALBUMIN 2.9 G/DL (3.4-5.0); ALBUMIN/GLOBULIN RATIO 0.6 (1.0-2.7); ALKALINE PHOSPHATASE 143 U/L (46-116); ANION GAP 12 mmol/L (5-15); ASPARTATE AMINO TRANSFERASE 27 U/L (15-37); BILIRUBIN,TOTAL 1.2 MG/DL (0.2-1.0); BLOOD UREA NITROGEN 3 mg/dL (7-18); CALCIUM 8.9 MG/DL (8.5-10.1); CARBON DIOXIDE 21 MMOL/L (21-32); CHLORIDE 104 MMOL/L (98-107); CREATININE 0.3 MG/DL (0.55-1.30); POTASSIUM 3.4 MMOL/L (3.5-5.1); SODIUM 137 MMOL/L (136-145)
[2018-04-14 06:57] LABS: BILIRUBIN,DIRECT 0.5 MG/DL (0.0-0.3)
--- NOTE | 2018-04-14 07:00 | Diagnostic Imaging Report ---
APPROVED REPORT CPT Code: 79423 Present Symptoms Comments: BILATERAL LEGS PAIN. BILATERAL: Imaging reveals a patent deep venous system bilaterally. There is no evidence of thrombus within the femoral, popliteal or tibial segments. The greater saphenous veins are also within normal limits. Doppler indicates normal spontaneous flow within these segments.
[2018-04-14 08:00] VITALS: BP 113/72
[2018-04-14] MEDS: Venlafaxine 25mg tab GT SCH ×2 (08:06→21:21)
[2018-04-14] MEDS: Pantoprazole Inj IVP SCH (08:06)
--- NOTE | 2018-04-14 08:15 | General Progress Note ---
Assessment/Plan Assessment/Plan IMPRESSION UGIB? trach gallstones anemia possible colitis ALS leukocytosis possible uti- no cultures available PLAN gi and gs evaluation noted refused EGD antibiotics - taper off on flagyl for now vent asis maintain meds feeds per gi to start- will discuss dc [facility] Subjective Allergies: Coded Allergies: No Known Allergies (Unverified , 04/08/18) Subjective care noted cdif ordered but not yet back another order placed gi ordered feeds but not yet started pt refused EGD Objective Last 24 Hour Vital Signs Date Time Temp Pulse Resp B/P (MAP) Pulse Ox O2 Delivery O2 Flow Rate FiO2 04/14/18 08:08 99.1 04/14/18 07:27 84 16 93 Mechanical Ventilator 21 04/14/18 07:13 84 21 04/14/18 05:30 72 16 21 04/14/18 04:00 21 04/14/18 04:00 99.1 95 14 110/64 93 Mechanical Ventilator 21 99.1 04/14/18 03:46 95 04/14/18 03:30 68 16 21 04/14/18 02:00 21 04/14/18 02:00 72 16 98 Mechanical Ventilator 21 04/14/18 02:00 70 16 97 Mechanical Ventilator 21 04/14/18 01:30 70 14 21 04/14/18 00:16 92 04/14/18 00:00 99.6 92 16 109/70 93 Mechanical Ventilator 21 99.6 04/14/18 00:00 21 04/13/18 23:27 71 14 21 04/13/18 20:39 70 24 21 04/13/18 20:00 21 04/13/18 20:00 98.0 88 15 112/74 93 Mechanical Ventilator 21 98.0 04/13/18 19:52 80 16 100 Mechanical Ventilator 21 04/13/18 19:50 21 04/13/18 19:49 73 16 98 Mechanical Ventilator 21 04/13/18 19:40 73 28 21 04/13/18 19:08 76 04/13/18 17:45 99.2 04/13/18 17:25 63 16 21 04/13/18 17:17 99.2 04/13/18 16:50 99.2 04/13/18 16:00 98.0 70 14 111/71 98 Mechanical Ventilator 21 98.0 04/13/18 16:00 71 5/23/18 16:00 21 04/13/18 15:15 61 16 21 04/13/18 13:52 70 16 100 Mechanical Ventilator 04/13/18 13:34 21 04/13/18 13:33 65 16 99 Mechanical Ventilator 21 04/13/18 13:00 62 18 25 04/13/18 12:45 99.2 04/13/18 12:00 77 04/13/18 12:00 25 04/13/18 12:00 97.7 59 14 94/63 98 Mechanical Ventilator 25 97.7 04/13/18 10:50 60 18 25 04/13/18 09:20 72 18 30 Intake and Output 04/13/18 04/14/18 19:00 07:00 Intake Total 1000 ml 1025 ml Output Total 500 ml 260 ml Balance 500 ml 765 ml Intake Free Water 100 ml IV Total 900 ml 825 ml Other 200 ml Output Urine Total 500 ml 260 ml # Voids 2 Laboratory Tests 04/13/18 12:20: White Blood Count 8.9, Red Blood Count 3.35L, Hemoglobin 10.0L, Hematocrit 30.8L , Mean Corpuscular Volume 92, Mean Corpuscular Hemoglobin 30.0, Mean Corpuscular Hemoglobin Concent 32.6, Red Cell Distribution Width 12.4, Platelet Count 294, Mean Platelet Volume 7.0, Neutrophils (%) (Auto) 75.1H, Lymphocytes ( %) (Auto) 12.7L, Monocytes (%) (Auto) 8.9, Eosinophils (%) (Auto) 2.2, Basophils (%) (Auto) 1.2, Sodium Level 137, Potassium Level 3.7, Chloride Level 105, Carbon Dioxide Level 23, Anion Gap 9, Blood Urea Nitrogen 4L, Creatinine 0.3L, Estimat Glomerular Filtration Rate > 60, Glucose Level 155H, Calcium Level 9.2, Total Bilirubin 1.4H, Direct Bilirubin 0.7H, Aspartate Amino Transf ( AST/SGOT) 29, Alanine Aminotransferase (ALT/SGPT) 145H, Alkaline Phosphatase 172H, Total Protein 7.9, Albumin 3.0L, Globulin 4.9, Albumin/Globulin Ratio 0.6L 04/14/18 05:00: White Blood Count 11.6H, Red Blood Count 2.95L, Hemoglobin 9.4L, Hematocrit 27.1L, Mean Corpuscular Volume 92, Mean Corpuscular Hemoglobin 31.9H, Mean Corpuscular Hemoglobin Concent 34.8, Red Cell Distribution Width 12.4, Platelet Count 306, Mean Platelet Volume 6.8, Neutrophils (%) (Auto) 74.7, Lymphocytes (% ) (Auto) 14.2L, Monocytes (%) (Auto) 9.3, Eosinophils (%) (Auto) 1.0, Basophils (%) (Auto) 0.9, Sodium Level 137, Potassium Level 3.4L, Chloride Level 104, Carbon Dioxide Level 21, Anion Gap 12, Blood Urea Nitrogen 3L, Creatinine 0.3L, Estimat Glomerular Filtration Rate > 60, Glucose Level 105, Calcium Level 8.9, Total Bilirubin 1.2H, Direct Bilirubin 0.5H, Aspartate Amino Transf (AST/SGOT) 27, Alanine Aminotransferase (ALT/SGPT) 110H, Alkaline Phosphatase 143H, Total Protein 7.6, Albumin 2.9L, Globulin 4.7, Albumin/Globulin Ratio 0.6L Height (Feet): 5 Height (Inches): 8.00 Weight (Pounds): 121 Objective WDWN NAD clear breath sounds bilaterally without rhonchi or wheeze [id number] without MRG NABS non tender ;GT in place no CCE quad trach Bob Cassidy MD April 14, 2018 08:15
[2018-04-14] MEDS ORDERED: Atropine Inj 1mg/10ml Syr IV PRN (10:15)
[2018-04-14] MEDS ORDERED: fentaNYL 100 mcg/2 mL IV PRN (10:15)
[2018-04-14] MEDS ORDERED: DiphenhydrAMINE 50mg/ml Inj IVP PRN (10:15)
[2018-04-14] MEDS ORDERED: Midazolam 2mg/2ml Inj IVP PRN (10:15)
--- NOTE | 2018-04-14 10:22 | Anethesia Preoperative Eval ---
Anesthesia Pre-op PMH/ROS General Date of Evaluation: April 14, 2018 Time of Evaluation: 10:16 Anesthesiologist: nell ASA Score: ASA 4 Mallampati Score Class I : Soft palate, uvula, fauces, pillars visible Class II: Soft palate, uvula, fauces visible Class III: Soft palate, base of uvula visible Class IV: Only hard plate visible Mallampati Classification: Class II Surgeon: nell Diagnosis: ugib Surgical Procedure: egd Anesthesia History: none Social History: smoking - former smoker Family History: no anesthesia problems Allergies: Coded Allergies: No Known Allergies (Unverified , 04/08/18) Medications: see eMAR Past Medical History Pulmonary: Reports: other - tracheostomy, vent dependent Gastrointestinal/Genitourinary: Reports: other - colitis, abdominal pain Neurologic/Psychiatric: Reports: other - als, Anesthesia Pre-op Phys. Exam Physician Exam Last Vital Signs Date Time Temp Pulse Resp B/P (MAP) Pulse Ox O2 Delivery O2 Flow Rate FiO2 04/14/18 09:17 87 20 21 04/14/18 08:35 99.1 04/14/18 08:00 113/72 98 Mechanical Ventilator Constitutional: NAD Neurologic: other - als Respiratory: other - tracheostomy on ventilator Gastrointestinal: other - mild to moderate tenderness to mild palpation at ruq Airway Exam Mallampati Score: Class II MO: limited Neck: tracheostomy TMD: 1fb ROM: limited Teeth: intact Anesthesia Pre-op A/P Labs Hematology Test 04/13/18 12:20 04/14/18 05:00 White Blood Count 8.9 K/UL (4.8-10.8) 11.6 K/UL (4.8-10.8) H Red Blood Count 3.35 M/UL (4.70-6.10) L 2.95 M/UL (4.70-6.10) L Hemoglobin 10.0 G/DL (14.2-18.0) L 9.4 G/DL (14.2-18.0) L Hematocrit 30.8 % (42.0-52.0) L 27.1 % (42.0-52.0) L Mean Corpuscular Volume 92 FL (80-99) 92 FL (80-99) Mean Corpuscular Hemoglobin 30.0 PG (27.0-31.0) 31.9 PG (27.0-31.0) H Mean Corpuscular Hemoglobin Concent 32.6 G/DL (32.0-36.0) 34.8 G/DL (32.0-36.0) Red Cell Distribution Width 12.4 % (11.6-14.8) 12.4 % (11.6-14.8) Platelet Count 294 K/UL (150-450) 306 K/UL (150-450) Mean Platelet Volume 7.0 FL (6.5-10.1) 6.8 FL (6.5-10.1) Neutrophils (%) (Auto) 75.1 % (45.0-75.0) H 74.7 % (45.0-75.0) Lymphocytes (%) (Auto) 12.7 % (20.0-45.0) L 14.2 % (20.0-45.0) L Monocytes (%) (Auto) 8.9 % (1.0-10.0) 9.3 % (1.0-10.0) Eosinophils (%) (Auto) 2.2 % (0.0-3.0) 1.0 % (0.0-3.0) Basophils (%) (Auto) 1.2 % (0.0-2.0) 0.9 % (0.0-2.0) Chemistry Test 04/13/18 12:20 04/14/18 05:00 Sodium Level 137 MMOL/L (136-145) 137 MMOL/L (136-145) Potassium Level 3.7 MMOL/L (3.5-5.1) 3.4 MMOL/L (3.5-5.1) L Chloride Level 105 MMOL/L (98-107) 104 MMOL/L (98-107) Carbon Dioxide Level 23 MMOL/L (21-32) 21 MMOL/L (21-32) Anion Gap 9 mmol/L (5-15) 12 mmol/L (5-15) Blood Urea Nitrogen 4 mg/dL (7-18) L 3 mg/dL (7-18) L Creatinine 0.3 MG/DL (0.55-1.30) L 0.3 MG/DL (0.55-1.30) L Estimat Glomerular Filtration Rate > 60 mL/min (>60) > 60 mL/min (>60) Glucose Level 155 MG/DL (74-106) H 105 MG/DL (74-106) Calcium Level 9.2 MG/DL (8.5-10.1) 8.9 MG/DL (8.5-10.1) Total Bilirubin 1.4 MG/DL (0.2-1.0) H 1.2 MG/DL (0.2-1.0) H Direct Bilirubin 0.7 MG/DL (0.0-0.3) H 0.5 MG/DL (0.0-0.3) H Aspartate Amino Transf (AST/SGOT) 29 U/L (15-37) 27 U/L (15-37) Alanine Aminotransferase (ALT/SGPT) 145 U/L (12-78) H 110 U/L (12-78) H Alkaline Phosphatase 172 U/L (46-116) H 143 U/L (46-116) H Total Protein 7.9 G/DL (6.4-8.2) 7.6 G/DL (6.4-8.2) Albumin 3.0 G/DL (3.4-5.0) L 2.9 G/DL (3.4-5.0) L Globulin 4.9 g/dL 4.7 g/dL Albumin/Globulin Ratio 0.6 (1.0-2.7) L 0.6 (1.0-2.7) L Risk Assessment & Plan Assessment: [email or web address] Plan: mac Status Change Before Surgery: No Pre-Antibiotics Drug: Ilene Tejeda MD April 14, 2018 10:22
[2018-04-14] MEDS ORDERED: NS 500ML IVPB ONE (11:35)
[2018-04-14 12:00] VITALS: BP 104/70
--- NOTE | 2018-04-14 13:11 | Immediate Post-Op Evaluation ---
Immediate Post-Op Evalulation Immediate Post-Op Evalulation Procedure: egd Date of Evaluation: April 14, 2018 Time of Evaluation: 11:59 IV Fluids: 50ml 0.9ns Blood Products: none Estimated Blood Loss: negligible Blood Pressure Systolic: 104 Blood Pressure Diastolic: 70 Pulse Rate: 84 Respiratory Rate: 14 O2 Sat by Pulse Oximetry: 100 Temperature (Fahrenheit): 97.7 Pain Score (1-10): 0 Nausea: No Vomiting: No Complications none Patient Status: awake, reacts, patent, ventilated Hydration Status: adequate Drug: Ilene Tejeda MD April 14, 2018 13:11
--- NOTE | 2018-04-14 13:13 | 48 Hour Post Anesthesia Eval ---
Post Anesthesia Evaluation Procedure: egd Date of Evaluation: April 14, 2018 Time of Evaluation: 12:01 Blood Pressure Systolic: 105 0: 65 Pulse Rate: 78 Respiratory Rate: 14 Temperature (Fahrenheit): 97.7 O2 Sat by Pulse Oximetry: 100 Airway: patent Nausea: No Vomiting: No Pain Intensity: 0 Hydration Status: adequate Cardiopulmonary Status: stable Mental Status/LOC: patient returned to baseline Post-Anesthesia Complications: none Follow-up care needed: N/A Ilene Lau MD April 14, 2018 13:13
--- NOTE | 2018-04-14 14:00 | Diagnostic Imaging Report ---
Indication: Elevated BUN/creatinine, ALP lipase. History of ALS Technique: Grayscale and duplex Doppler imaging of the abdomen performed. Comparison: Abdominal ultrasound and CT 04/09/2018. Findings: There is no biliary ductal dilatation identified. The CBD measurement is 6-7 mm, which is relatively stable to recent exams. The gallbladder is distended but there is no evidence of gallstones. No significant gallbladder wall thickening is appreciated. Small amount of gallbladder sludge noted. The liver, pancreas, both kidneys appear normal. There is a small right renal cyst. There is no hydronephrosis or free fluid. The portal vein is patent by Doppler examination. Aorta is unremarkable. IMPRESSION: No evidence of gallstones. Slightly prominent CBD, within upper limits of normal for age. The appearance is stable compared to recent examinations. If there is clinical suspicion of biliary ductal obstruction, recommend MRCP. However, based on the exams obtained thus far there is marginal to no evidence for this.
[2018-04-14 16:00] VITALS: BP 95/69
[2018-04-14] MEDS: HYDROmorphone 2mg tab GT PRN (16:20)
--- NOTE | 2018-04-14 18:27 | General Surgery Progress Note ---
General Surgery-Progress Note Subjective Additional Comments EGD this AM. awaiting results Objective Last 24 Hour Vital Signs Date Time Temp Pulse Resp B/P (MAP) Pulse Ox O2 Delivery O2 Flow Rate FiO2 04/14/18 16:52 87 14 21 04/14/18 16:20 97.7 04/14/18 16:00 78 04/14/18 16:00 97.7 65 14 95/69 98 Mechanical Ventilator 21 97.7 04/14/18 15:24 90 14 21 04/14/18 14:10 97.7 04/14/18 13:44 78 22 100 Mechanical Ventilator 21 04/14/18 13:41 97.7 04/14/18 13:36 91 18 97 Mechanical Ventilator 21 04/14/18 13:29 92 21 21 04/14/18 13:13 207.9 78 14 100 04/14/18 13:11 207.9 84 14 100 04/14/18 12:00 87 04/14/18 12:00 97.7 84 14 104/70 97 Mechanical Ventilator 21 97.7 04/14/18 12:00 21 04/14/18 09:17 87 20 21 04/14/18 08:08 99.1 04/14/18 08:00 21 04/14/18 08:00 97.9 91 18 113/72 98 Mechanical Ventilator 21 97.9 04/14/18 08:00 89 04/14/18 07:37 87 20 95 Mechanical Ventilator 21 04/14/18 07:27 84 16 93 Mechanical Ventilator 21 04/14/18 07:13 84 16 21 04/14/18 05:30 72 16 21 04/14/18 04:00 21 04/14/18 04:00 99.1 95 14 110/64 93 Mechanical Ventilator 21 99.1 04/14/18 03:46 95 04/14/18 03:30 68 16 21 04/14/18 02:00 21 04/14/18 02:00 72 16 98 Mechanical Ventilator 21 04/14/18 02:00 70 16 97 Mechanical Ventilator 21 04/14/18 01:30 70 14 21 04/14/18 00:16 92 04/14/18 00:00 99.6 92 16 109/70 93 Mechanical Ventilator 21 99.6 04/14/18 00:00 21 04/13/18 23:27 71 14 21 04/13/18 20:39 70 24 21 04/13/18 20:00 21 04/13/18 20:00 98.0 88 15 112/74 93 Mechanical Ventilator 21 98.0 04/13/18 19:52 80 16 100 Mechanical Ventilator 21 04/13/18 19:50 21 04/13/18 19:49 73 16 98 Mechanical Ventilator 21 04/13/18 19:40 73 28 21 04/13/18 19:08 76 I&O Intake and Output 04/13/18 04/14/18 19:00 07:00 Intake Total 1000 ml 1025 ml Output Total 500 ml 260 ml Balance 500 ml 765 ml Intake Free Water 100 ml IV Total 900 ml 825 ml Other 200 ml Output Urine Total 500 ml 260 ml # Voids 2 Cardiovascular: RSR Respiratory: clear Abdomen: soft, flat, non-tender, present bowel sounds Extremities: no edema, no cyanosis Laboratory Tests Test 04/14/18 05:00 White Blood Count 11.6 K/UL (4.8-10.8) H Red Blood Count 2.95 M/UL (4.70-6.10) L Hemoglobin 9.4 G/DL (14.2-18.0) L Hematocrit 27.1 % (42.0-52.0) L Mean Corpuscular Volume 92 FL (80-99) Mean Corpuscular Hemoglobin 31.9 PG (27.0-31.0) H Mean Corpuscular Hemoglobin Concent 34.8 G/DL (32.0-36.0) Red Cell Distribution Width 12.4 % (11.6-14.8) Platelet Count 306 K/UL (150-450) Mean Platelet Volume 6.8 FL (6.5-10.1) Neutrophils (%) (Auto) 74.7 % (45.0-75.0) Lymphocytes (%) (Auto) 14.2 % (20.0-45.0) L Monocytes (%) (Auto) 9.3 % (1.0-10.0) Eosinophils (%) (Auto) 1.0 % (0.0-3.0) Basophils (%) (Auto) 0.9 % (0.0-2.0) Sodium Level 137 MMOL/L (136-145) Potassium Level 3.4 MMOL/L (3.5-5.1) L Chloride Level 104 MMOL/L (98-107) Carbon Dioxide Level 21 MMOL/L (21-32) Anion Gap 12 mmol/L (5-15) Blood Urea Nitrogen 3 mg/dL (7-18) L Creatinine 0.3 MG/DL (0.55-1.30) L Estimat Glomerular Filtration Rate > 60 mL/min (>60) Glucose Level 105 MG/DL (74-106) Calcium Level 8.9 MG/DL (8.5-10.1) Total Bilirubin 1.2 MG/DL (0.2-1.0) H Direct Bilirubin 0.5 MG/DL (0.0-0.3) H Aspartate Amino Transf (AST/SGOT) 27 U/L (15-37) Alanine Aminotransferase (ALT/SGPT) 110 U/L (12-78) H Alkaline Phosphatase 143 U/L (46-116) H Total Protein 7.6 G/DL (6.4-8.2) Albumin 2.9 G/DL (3.4-5.0) L Globulin 4.7 g/dL Albumin/Globulin Ratio 0.6 (1.0-2.7) L Plan Problems: (1) Abdominal pain Assessment & Plan: epigastric abdominal pain. states 10/10 at max. intermittent without radiation. pain on palpation of epigastric region during exam. ultrasound and CT reviewed. no signs of acute cholecystitis. does have sludge and stones. rectosigmoid thickening on CT possible colitis. does not seem to have colitis and CT findings not very specific. gallbladder with stones and sludge but no inflammation. no pancreatitis. agree with EGD. may be gastris. had EGD this AM. awaiting results okay to transfer from surgical standpoint. can resume work up there no acute surgical intervention currently planned. thank you for this consultation. will follow with recs. Bry Fish April 14, 2018 18:27
[2018-04-14 20:00] VITALS: BP 105/75
[2018-04-14] MEDS: Dyna-Hex 2% Top Sol 2oz TOPIC SCH (21:21)
--- NOTE | 2018-04-14 23:07 | General Progress Note ---
Assessment/Plan Assessment/Plan Assessement - UGIB - resolved - abnormal LFT - passed stone (sudden jump in LFT) - ALS - Resp failure - dysphagia - Anemia Recommendations - EGD today - follow LFT - Resume TF - follow labs - await transfer to [place] Subjective Allergies: Coded Allergies: No Known Allergies (Unverified , 04/08/18) Subjective above noted abdominal pain better had repeat U/S this am - no obvious CBD stone for EGD today Objective Last 24 Hour Vital Signs Date Time Temp Pulse Resp B/P (MAP) Pulse Ox O2 Delivery O2 Flow Rate FiO2 04/14/18 22:28 97.7 04/14/18 21:16 95 16 21 04/14/18 20:01 97.7 04/14/18 20:00 80 04/14/18 20:00 21 04/14/18 19:19 85 15 99 Mechanical Ventilator 21 04/14/18 19:04 88 25 98 Mechanical Ventilator 21 04/14/18 19:04 88 25 21 04/14/18 16:52 87 14 21 04/14/18 16:20 97.7 04/14/18 16:00 21 04/14/18 16:00 78 04/14/18 16:00 97.7 65 14 95/69 98 Mechanical Ventilator 21 97.7 04/14/18 15:24 90 14 21 04/14/18 13:44 78 22 100 Mechanical Ventilator 21 04/14/18 13:41 97.7 04/14/18 13:36 91 18 97 Mechanical Ventilator 21 04/14/18 13:29 92 21 21 04/14/18 13:13 207.9 78 14 100 04/14/18 13:11 207.9 84 14 100 04/14/18 12:00 87 04/14/18 12:00 97.7 84 14 104/70 97 Mechanical Ventilator 21 97.7 04/14/18 12:00 21 04/14/18 09:17 87 20 21 04/14/18 08:08 99.1 04/14/18 08:00 21 04/14/18 08:00 97.9 91 18 113/72 98 Mechanical Ventilator 21 97.9 04/14/18 08:00 89 04/14/18 07:37 87 20 95 Mechanical Ventilator 21 04/14/18 07:27 84 16 93 Mechanical Ventilator 21 04/14/18 07:13 84 16 21 04/14/18 05:30 72 16 21 04/14/18 04:00 21 04/14/18 04:00 99.1 95 14 110/64 93 Mechanical Ventilator 21 99.1 04/14/18 03:46 95 04/14/18 03:30 68 16 21 04/14/18 02:00 21 04/14/18 02:00 72 16 98 Mechanical Ventilator 21 04/14/18 02:00 70 16 97 Mechanical Ventilator 21 04/14/18 01:30 70 14 21 04/14/18 00:16 92 04/14/18 00:00 99.6 92 16 109/70 93 Mechanical Ventilator 21 99.6 04/14/18 00:00 21 04/13/18 23:27 71 14 21 Intake and Output 04/13/18 04/14/18 19:00 07:00 Intake Total 1000 ml 1025 ml Output Total 500 ml 260 ml Balance 500 ml 765 ml Intake Free Water 100 ml IV Total 900 ml 825 ml Other 200 ml Output Urine Total 500 ml 260 ml # Voids 2 Laboratory Tests 04/14/18 05:00: White Blood Count 11.6H, Red Blood Count 2.95L, Hemoglobin 9.4L, Hematocrit 27.1L, Mean Corpuscular Volume 92, Mean Corpuscular Hemoglobin 31.9H, Mean Corpuscular Hemoglobin Concent 34.8, Red Cell Distribution Width 12.4, Platelet Count 306, Mean Platelet Volume 6.8, Neutrophils (%) (Auto) 74.7, Lymphocytes (% ) (Auto) 14.2L, Monocytes (%) (Auto) 9.3, Eosinophils (%) (Auto) 1.0, Basophils (%) (Auto) 0.9, Sodium Level 137, Potassium Level 3.4L, Chloride Level 104, Carbon Dioxide Level 21, Anion Gap 12, Blood Urea Nitrogen 3L, Creatinine 0.3L, Estimat Glomerular Filtration Rate > 60, Glucose Level 105, Calcium Level 8.9, Total Bilirubin 1.2H, Direct Bilirubin 0.5H, Aspartate Amino Transf (AST/SGOT) 27, Alanine Aminotransferase (ALT/SGPT) 110H, Alkaline Phosphatase 143H, Total Protein 7.6, Albumin 2.9L, Globulin 4.7, Albumin/Globulin Ratio 0.6L Height (Feet): 5 Height (Inches): 8.00 Weight (Pounds): 121 Objective WDWN man NCAT coarse BS RR abd soft flat, (+)PEG, minimal RUQ TTP (improved) no edema Akiko Dye MD April 14, 2018 23:07
--- NOTE | 2018-04-14 23:08 | Pre-Procedure Note/Attestation ---
Pre-Procedure Note/Attestation Complete Prior to Procedure Planned Procedure: not applicable Procedure Narrative: egd Indications for Procedure Pre-Operative Diagnosis: gib Attestation I attest that I discussed the nature of the procedure; its benefits; risks and complications; and alternatives (and the risks and benefits of such alternatives ), prior to the procedure, with the patient. The patient understands procedure and able to give verbal consent. I attest that, if there was a reasonable possibility of needing a blood transfusion, the patient (or the patient's legal surgical sales representative) was given the [facility] standardized written summary, pursuant to the [place] Blood Safety Act ([place] Health and Safety Code # 1645, as amended). I attest that I re-evaluated the patient just prior to the surgery and that there has been no change in the patient's H&P, except as documented below: Akiko Dye MD April 14, 2018 23:08
--- NOTE | 2018-04-14 23:10 | Endoscopy Procedure Note ---
Endoscopy Procedure Note General Indication for Procedure: UGIB Procedures Performed: EGD Operative Findings/Diagnosis: mild gastritis proximal stomach Specimen: yes Pt Tolerated Procedure Well: Yes Estimated Blood Loss: none Anesthesia Anesthesiologist: Alexander patel Anesthesia: moderate sedation Inserted Devices Implant(s) used?: No GI Core Measures 50 yrs or older w/o bx or poly: Not Applicable 10yrs. F/U not recommended: Not Applicable If not recommended, why?: Akiko Dye MD April 14, 2018 23:10
--- NOTE | 2018-04-14 23:12 | Brief Operative Note ---
Immediate Post Operative Note Operative Note Chief Complaint: gib Pre-op Diagnosis: gib Procedure: esophagogastroduodenoscopybx, Post-op Diagnosis: distal gastritis Surgeon: joyce Metal Sprayer Production: Tiffanyqwqwvictoria patel Anesthesia: moderate sedation Specimen: yes Complications: none Condition: stable Fluids: given Estimated Blood Loss: minimal Drains: none Implant(s) used?: No Akiko Dye MD April 14, 2018 23:12
[2018-04-15] MEDS: Albuterol/Ipratropium 3ml neb HHN SCH ×4 (01:08→19:30)
[2018-04-15] MEDS: Zolpidem 5mg tab ORAL PRN ×2 (01:49→22:08)
[2018-04-15] MEDS: Morphine Sulfate 4mg/ml Inj IVP PRN ×3 (01:50→18:22)
--- NOTE | 2018-04-15 03:00 | Procedure Note ---
DATE OF PROCEDURE: 04/14/2018 NOTE: POOR AUDIO PROCEDURE: Upper gastrointestinal endoscopy with biopsy. SURGEON: Akiko Dye M.D. ANESTHESIA: Please see the separate anesthesiologist notes for details. PRE-ENDOSCOPIC DIAGNOSES: 1. Anemia. 2. Upper gastrointestinal bleed. POST-ENDOSCOPIC DIAGNOSES: 1. Status post gastrostomy tube. 2. Some erythematous patches in the proximal antrum or distal body of unclear significance, status post biopsy. DESCRIPTION OF PROCEDURE: The procedure, its risks, indications, alternatives, and possible complications were explained to the patient and informed consent was obtained. The patient was then sedated. A diagnostic upper endoscope was introduced through the oropharynx and advanced to the duodenum without difficulty. The endoscope was then gradually withdrawn and the mucosa examined carefully. Examination of the upper gastrointestinal mucosa revealed some patchy erythema in the proximal antrum and distal body. Biopsies were sent to pathology for review. The remainder of exam was unremarkable. The endoscope was removed. The patient was sent to recovery in good condition. COMPLICATIONS: None. RECOMMENDATIONS: 1. Resume feeding. 2. Follow up biopsy results. 3. Elevate HOB. Akiko Dye M.D. DR: MARYCHUY JOB#: [id number] CC: NAHED
[2018-04-15] MEDS: D5 1/2NS w/KCl 20mEq 1,000 ML IV SCH ×2 (03:01→19:41)
[2018-04-15] MEDS: metroNIDAZOLE 500mg tab ORAL SCH ×3 (05:29→22:07)
[2018-04-15 08:00] VITALS: BP 82/56
--- NOTE | 2018-04-15 08:25 | General Progress Note ---
Assessment/Plan Assessment/Plan IMPRESSION gastritis trach gallstones anemia possible cholecystitis ALS leukocytosis possible uti- PLAN reviewed EGD flagyl for now HIDA vent asis maintain meds feeds per gi to start- will discuss dc planning [facility] Subjective ROS Limited/Unobtainable: Yes Allergies: Coded Allergies: No Known Allergies (Unverified , 04/08/18) Subjective care noted EGD with gastritis for HIDA Objective Last 24 Hour Vital Signs Date Time Temp Pulse Resp B/P (MAP) Pulse Ox O2 Delivery O2 Flow Rate FiO2 04/15/18 07:21 92 16 99 Mechanical Ventilator 21 04/15/18 07:10 92 16 21 04/15/18 07:10 93 16 98 Mechanical Ventilator 21 04/15/18 05:22 91 14 21 04/15/18 04:00 21 04/15/18 04:00 99 04/15/18 03:25 85 14 21 04/15/18 02:20 97.7 04/15/18 01:50 97.7 04/15/18 01:24 88 14 99 Mechanical Ventilator 21 04/15/18 01:08 89 14 98 Mechanical Ventilator 21 04/15/18 01:07 89 14 21 04/15/18 00:00 21 04/15/18 00:00 104 04/14/18 23:42 94 14 21 04/14/18 23:27 97.7 04/14/18 22:28 97.7 04/14/18 21:16 95 16 21 04/14/18 20:00 80 04/14/18 20:00 98.7 90 24 105/75 98 Mechanical Ventilator 21 98.7 04/14/18 20:00 21 04/14/18 19:19 85 15 99 Mechanical Ventilator 21 04/14/18 19:04 88 25 98 Mechanical Ventilator 21 04/14/18 19:04 88 25 21 04/14/18 16:52 87 14 21 04/14/18 16:20 97.7 04/14/18 16:00 21 04/14/18 16:00 78 04/14/18 16:00 97.7 65 14 95/69 98 Mechanical Ventilator 21 97.7 04/14/18 15:24 90 14 21 04/14/18 13:44 78 22 100 Mechanical Ventilator 21 04/14/18 13:41 97.7 04/14/18 13:36 91 18 97 Mechanical Ventilator 21 04/14/18 13:29 92 21 21 04/14/18 13:13 207.9 78 14 100 04/14/18 13:11 207.9 84 14 100 04/14/18 12:00 87 04/14/18 12:00 97.7 84 14 104/70 97 Mechanical Ventilator 21 97.7 04/14/18 12:00 21 04/14/18 09:17 87 20 21 Intake and Output 04/14/18 04/15/18 19:00 07:00 Intake Total 675 ml 985 ml Output Total 700 ml Balance 675 ml 285 ml Intake Free Water 60 ml IV Total 675 ml 675 ml Tube Feeding 250 ml Output Urine Total 700 ml # Voids 3 Height (Feet): 5 Height (Inches): 8.00 Weight (Pounds): 121 Objective WDWN NAD clear breath sounds bilaterally without rhonchi or wheeze [id number] without MRG NABS GT in place no CCE quad trach Bob Cassidy MD April 15, 2018 08:25
[2018-04-15] MEDS: Venlafaxine 25mg tab GT SCH ×2 (10:05→21:03)
[2018-04-15] MEDS: Pantoprazole Inj IVP SCH (10:05)
--- NOTE | 2018-04-15 13:50 | Diagnostic Imaging Report ---
Indications: Abdominal pain, dilated common bile duct on recent ultrasound Technique: IV administration 5.4 mCi 99 M technetium Choletec. Serial images obtained over the abdomen for one hour Comparison: None Findings: Prompt tracer uptake within the liver. Extrahepatic bile ducts are seen at 10 minutes. Excretion into the duodenum demonstrated at 22 minutes. Gallbladder visualized at approximately 19 minutes. Impression: Negative. No evidence of cystic duct obstruction or common bile duct obstruction
[2018-04-15 14:30] VITALS: BP 104/64
[2018-04-15] MEDS: HYDROmorphone 4mg tab GT PRN ×2 (14:30→22:08)
[2018-04-15 16:00] VITALS: BP 104/64
[2018-04-15] MEDS ORDERED: Magnesium Citrate Liq Btl GT ONE (19:30)
[2018-04-15] MEDS: Dyna-Hex 2% Top Sol 2oz TOPIC SCH (19:54)
[2018-04-15] MEDS: Fleet's Enema 133ml RECTAL ONE ×3 (19:54→22:00)
[2018-04-15 20:00] VITALS: BP 116/75
--- NOTE | 2018-04-15 22:46 | General Progress Note ---
Assessment/Plan Assessment/Plan Assessement - UGIB - resolved (mild gastritis) - abdominal pain, ? etiology - abnormal LFT - passed stone (sudden jump in LFT) - ALS - Resp failure - dysphagia - Anemia Recommendations - Laxative trial - check OB - consider colonoscopy - follow LFT - Resume TF - follow labs - await transfer to [place] Subjective Allergies: Coded Allergies: No Known Allergies (Unverified , 04/08/18) Subjective no new events patient afraid of feeding due to pain noted after intake w/u to date: - CT - U/S x 2 - HIDA - EGD patient notes some constipation Objective Last 24 Hour Vital Signs Date Time Temp Pulse Resp B/P (MAP) Pulse Ox O2 Delivery O2 Flow Rate FiO2 04/15/18 22:08 98.1 04/15/18 21:24 81 18 21 04/15/18 19:58 93 14 99 Mechanical Ventilator 21 04/15/18 19:26 78 14 21 04/15/18 19:26 21 04/15/18 19:26 78 14 97 Mechanical Ventilator 21 04/15/18 19:00 98.1 04/15/18 18:22 98.1 04/15/18 17:20 66 23 21 04/15/18 16:00 82 04/15/18 16:00 21 04/15/18 16:00 98.6 81 15 104/64 97 Mechanical Ventilator 21 98.6 04/15/18 15:42 98.1 04/15/18 15:19 83 18 21 04/15/18 14:30 98.1 04/15/18 14:30 98.7 83 15 104/64 97 Mechanical Ventilator 21 98.7 04/15/18 13:57 89 14 98 Mechanical Ventilator 21 04/15/18 13:45 89 14 98 Mechanical Ventilator 21 04/15/18 12:38 85 14 21 04/15/18 12:00 21 04/15/18 12:00 58 04/15/18 11:18 76 17 21 04/15/18 10:39 98.1 04/15/18 09:23 82 14 21 04/15/18 08:00 98.1 72 14 82/56 97 Mechanical Ventilator 21 98.1 04/15/18 08:00 21 04/15/18 08:00 72 04/15/18 07:21 92 16 99 Mechanical Ventilator 21 04/15/18 07:10 92 16 21 04/15/18 07:10 93 16 98 Mechanical Ventilator 21 04/15/18 05:22 91 14 21 04/15/18 04:00 21 04/15/18 04:00 99 04/15/18 03:25 85 14 21 04/15/18 01:50 97.7 04/15/18 01:24 88 14 99 Mechanical Ventilator 21 04/15/18 01:08 89 14 98 Mechanical Ventilator 21 04/15/18 01:07 89 14 21 04/15/18 00:00 21 04/15/18 00:00 104 04/14/18 23:42 94 14 21 Intake and Output 04/14/18 04/15/18 19:00 07:00 Intake Total 675 ml 1060 ml Output Total 700 ml Balance 675 ml 360 ml Intake Free Water 60 ml IV Total 675 ml 750 ml Tube Feeding 250 ml Output Urine Total 700 ml # Voids 3 Height (Feet): 5 Height (Inches): 8.00 Weight (Pounds): 121 Objective WDWN man NCAT coarse BS RR abd soft flat, (+)PEG, minimal RUQ TTP (improved) no edema Akiko Dye MD April 15, 2018 22:46
[2018-04-16] VITALS: BP 104/73
[2018-04-16] MEDS: Albuterol/Ipratropium 3ml neb HHN SCH ×4 (01:19→19:15)
[2018-04-16] MEDS: Zolpidem 5mg tab ORAL PRN ×2 (01:56→22:13)
[2018-04-16] MEDS: Morphine Sulfate 4mg/ml Inj IVP PRN ×4 (01:58→21:34)
[2018-04-16 04:00] VITALS: BP 108/70
[2018-04-16] MEDS: metroNIDAZOLE 500mg tab ORAL SCH ×2 (05:14→12:57)
[2018-04-16] MEDS: D5 1/2NS w/KCl 20mEq 1,000 ML IV SCH (05:42)
[2018-04-16 06:05] LABS: BASOPHILS % (AUTO) 0.9 % (0.0-2.0); EOSINOPHILS % (AUTO) 2.5 % (0.0-3.0); HEMATOCRIT 30.5 % (42.0-52.0); HEMOGLOBIN 9.9 G/DL (14.2-18.0); LYMPHOCYTES % (AUTO) 20.7 % (20.0-45.0); MEAN CORPUSCULAR VOLUME 93 FL (80-99); MONOCYTES % (AUTO) 9.3 % (1.0-10.0); NEUTROPHILS % (AUTO) 66.7 % (45.0-75.0); PLATELET COUNT 304 K/UL (150-450); RED BLOOD COUNT 3.29 M/UL (4.70-6.10); RED CELL DISTRIBUTION WIDTH 12.7 % (11.6-14.8); WHITE BLOOD COUNT 11.4 K/UL (4.8-10.8)
[2018-04-16 06:06] LABS: ALANINE AMINOTRANSFERASE 69 U/L (12-78); ALBUMIN 3.1 G/DL (3.4-5.0); ALBUMIN/GLOBULIN RATIO 0.6 (1.0-2.7); ALKALINE PHOSPHATASE 115 U/L (46-116); ANION GAP 11 mmol/L (5-15); ASPARTATE AMINO TRANSFERASE 22 U/L (15-37); BILIRUBIN,TOTAL 0.7 MG/DL (0.2-1.0); BLOOD UREA NITROGEN 5 mg/dL (7-18); CALCIUM 9.2 MG/DL (8.5-10.1); CARBON DIOXIDE 23 MMOL/L (21-32); CHLORIDE 107 MMOL/L (98-107); CREATININE 0.3 MG/DL (0.55-1.30); POTASSIUM 3.8 MMOL/L (3.5-5.1); SODIUM 140 MMOL/L (136-145)
[2018-04-16] MEDS: Pantoprazole Inj IVP SCH (09:50)
[2018-04-16] MEDS: Venlafaxine 25mg tab GT SCH ×2 (09:50→20:57)
[2018-04-16] MEDS ORDERED: Tubing IV Secondary IV ONE (11:16)
[2018-04-16] MEDS ORDERED: NS 275ml ONE (11:16)
[2018-04-16] MEDS ORDERED: NS 500ML ONE (11:16)
[2018-04-16] MEDS ORDERED: D5 1/2NS 1000ml IV ONE (11:16)
[2018-04-16] MEDS ORDERED: Sterile Water Irrig 1000ml IRRIG ONE ×2 (11:16→15:40)
[2018-04-16 12:00] VITALS: BP 99/65
--- NOTE | 2018-04-16 12:22 | General Surgery Progress Note ---
General Surgery-Progress Note Subjective Additional Comments no acute events. comfortable. no bleeding. pain controlled with pain meds. labs improved Objective Last 24 Hour Vital Signs Date Time Temp Pulse Resp B/P (MAP) Pulse Ox O2 Delivery O2 Flow Rate FiO2 04/16/18 10:51 77 14 21 04/16/18 09:05 72 14 21 04/16/18 08:00 21 04/16/18 08:00 60 04/16/18 07:40 71 14 99 Mechanical Ventilator 21 04/16/18 07:31 71 14 99 Mechanical Ventilator 21 04/16/18 07:28 69 14 21 04/16/18 05:21 77 15 21 04/16/18 04:00 98.4 56 15 108/70 100 Mechanical Ventilator 21 98.4 04/16/18 04:00 21 04/16/18 04:00 65 04/16/18 02:30 75 14 21 04/16/18 02:28 98.4 04/16/18 01:58 98.4 04/16/18 01:25 82 14 99 Mechanical Ventilator 21 04/16/18 01:18 69 14 98 Mechanical Ventilator 21 04/16/18 01:16 69 14 21 04/16/18 00:00 65 04/16/18 00:00 98.4 67 15 104/73 100 Mechanical Ventilator 21 98.4 04/15/18 23:07 98.1 04/15/18 22:45 73 14 21 04/15/18 22:08 98.1 04/15/18 21:24 81 18 21 04/15/18 20:00 21 04/15/18 20:00 98.1 81 14 116/75 100 Mechanical Ventilator 21 98.1 04/15/18 20:00 69 04/15/18 19:58 93 14 99 Mechanical Ventilator 21 04/15/18 19:26 78 14 21 04/15/18 19:26 21 04/15/18 19:26 78 14 97 Mechanical Ventilator 21 04/15/18 18:22 98.1 04/15/18 17:20 66 23 21 04/15/18 16:00 82 04/15/18 16:00 21 04/15/18 16:00 98.6 81 15 104/64 97 Mechanical Ventilator 21 98.6 04/15/18 15:19 83 18 21 04/15/18 14:30 98.1 04/15/18 14:30 98.7 83 15 104/64 97 Mechanical Ventilator 21 98.7 04/15/18 13:57 89 14 98 Mechanical Ventilator 21 04/15/18 13:45 89 14 98 Mechanical Ventilator 21 04/15/18 12:38 85 14 21 I&O Intake and Output 04/15/18 04/16/18 19:00 07:00 Intake Total 1025 ml 1155 ml Output Total 800 ml 700 ml Balance 225 ml 455 ml IV Total 825 ml 845 ml Tube Feeding 250 ml Other 200 ml 60 ml Output Urine Total 800 ml 700 ml # Voids 4 3 # Bowel Movements 2 Cardiovascular: RSR Respiratory: clear Abdomen: soft, flat, non-tender, present bowel sounds Extremities: no cyanosis Laboratory Tests Test 04/16/18 04:15 White Blood Count 11.4 K/UL (4.8-10.8) H Red Blood Count 3.29 M/UL (4.70-6.10) L Hemoglobin 9.9 G/DL (14.2-18.0) L Hematocrit 30.5 % (42.0-52.0) L Mean Corpuscular Volume 93 FL (80-99) Mean Corpuscular Hemoglobin 30.2 PG (27.0-31.0) Mean Corpuscular Hemoglobin Concent 32.6 G/DL (32.0-36.0) Red Cell Distribution Width 12.7 % (11.6-14.8) Platelet Count 304 K/UL (150-450) Mean Platelet Volume 6.2 FL (6.5-10.1) L Neutrophils (%) (Auto) 66.7 % (45.0-75.0) Lymphocytes (%) (Auto) 20.7 % (20.0-45.0) Monocytes (%) (Auto) 9.3 % (1.0-10.0) Eosinophils (%) (Auto) 2.5 % (0.0-3.0) Basophils (%) (Auto) 0.9 % (0.0-2.0) Sodium Level 140 MMOL/L (136-145) Potassium Level 3.8 MMOL/L (3.5-5.1) Chloride Level 107 MMOL/L (98-107) Carbon Dioxide Level 23 MMOL/L (21-32) Anion Gap 11 mmol/L (5-15) Blood Urea Nitrogen 5 mg/dL (7-18) L Creatinine 0.3 MG/DL (0.55-1.30) L Estimat Glomerular Filtration Rate > 60 mL/min (>60) Glucose Level 105 MG/DL (74-106) Calcium Level 9.2 MG/DL (8.5-10.1) Total Bilirubin 0.7 MG/DL (0.2-1.0) Aspartate Amino Transf (AST/SGOT) 22 U/L (15-37) Alanine Aminotransferase (ALT/SGPT) 69 U/L (12-78) Alkaline Phosphatase 115 U/L (46-116) Total Protein 8.1 G/DL (6.4-8.2) Albumin 3.1 G/DL (3.4-5.0) L Globulin 5.0 g/dL Albumin/Globulin Ratio 0.6 (1.0-2.7) L Plan Problems: (1) Abdominal pain Assessment & Plan: epigastric abdominal pain. states 10/10 at max. intermittent without radiation. pain on palpation of epigastric region during exam. ultrasound and CT reviewed. no signs of acute cholecystitis. does have sludge and stones. rectosigmoid thickening on CT possible colitis. does not seem to have colitis and CT findings not very specific. gallbladder with stones and sludge but no inflammation. no pancreatitis. EGD with distal gastritis abdominal pain etiology possibly due to gastritis? can consider colonoscopy to evaluate colitis. okay to transfer from surgical standpoint. can resume work up there no acute surgical intervention currently planned. thank you for this consultation. will follow with recs. Bry Fish April 16, 2018 12:22
--- NOTE | 2018-04-16 15:55 | General Progress Note ---
Assessment/Plan Assessment/Plan IMPRESSION gastritis trach gallstones anemia possible cholecystitis ALS leukocytosis possible uti- negative cultures PLAN dc flagyl HIDA negative vent ? pain management maintain meds feeds per gi to start- will discuss dc planning [facility] Subjective Allergies: Coded Allergies: No Known Allergies (Unverified , 04/08/18) Subjective care noted EGD with gastritis still having pain Objective Last 24 Hour Vital Signs Date Time Temp Pulse Resp B/P (MAP) Pulse Ox O2 Delivery O2 Flow Rate FiO2 04/16/18 15:18 84 14 21 04/16/18 13:25 97.5 04/16/18 12:57 97.5 04/16/18 12:50 73 14 99 Mechanical Ventilator 21 04/16/18 12:44 73 14 21 04/16/18 12:43 73 14 98 Mechanical Ventilator 21 04/16/18 12:00 97.5 59 24 99/65 99 Mechanical Ventilator 21 97.5 04/16/18 12:00 21 04/16/18 12:00 55 04/16/18 10:51 77 14 21 04/16/18 09:05 72 14 21 04/16/18 08:00 21 04/16/18 08:00 60 04/16/18 07:40 71 14 99 Mechanical Ventilator 21 04/16/18 07:31 71 14 99 Mechanical Ventilator 21 04/16/18 07:28 69 14 21 04/16/18 05:21 77 15 21 04/16/18 04:00 98.4 56 15 108/70 100 Mechanical Ventilator 21 98.4 04/16/18 04:00 21 04/16/18 04:00 65 04/16/18 02:30 75 14 21 04/16/18 01:58 98.4 04/16/18 01:25 82 14 99 Mechanical Ventilator 21 04/16/18 01:18 69 14 98 Mechanical Ventilator 21 04/16/18 01:16 69 14 21 04/16/18 00:00 65 04/16/18 00:00 98.4 67 15 104/73 100 Mechanical Ventilator 21 98.4 04/15/18 23:07 98.1 04/15/18 22:45 73 14 21 04/15/18 22:08 98.1 04/15/18 21:24 81 18 21 04/15/18 20:00 21 04/15/18 20:00 98.1 81 14 116/75 100 Mechanical Ventilator 21 98.1 04/15/18 20:00 69 04/15/18 19:58 93 14 99 Mechanical Ventilator 21 04/15/18 19:26 78 14 21 04/15/18 19:26 21 04/15/18 19:26 78 14 97 Mechanical Ventilator 21 04/15/18 18:22 98.1 04/15/18 17:20 66 23 21 04/15/18 16:00 82 04/15/18 16:00 21 04/15/18 16:00 98.6 81 15 104/64 97 Mechanical Ventilator 21 98.6 Intake and Output 04/15/18 04/16/18 19:00 07:00 Intake Total 1025 ml 1155 ml Output Total 800 ml 700 ml Balance 225 ml 455 ml IV Total 825 ml 845 ml Tube Feeding 250 ml Other 200 ml 60 ml Output Urine Total 800 ml 700 ml # Voids 4 3 # Bowel Movements 2 Laboratory Tests 04/16/18 04:15: White Blood Count 11.4H, Red Blood Count 3.29L, Hemoglobin 9.9L, Hematocrit 30.5L, Mean Corpuscular Volume 93, Mean Corpuscular Hemoglobin 30.2, Mean Corpuscular Hemoglobin Concent 32.6, Red Cell Distribution Width 12.7, Platelet Count 304, Mean Platelet Volume 6.2L, Neutrophils (%) (Auto) 66.7, Lymphocytes ( %) (Auto) 20.7, Monocytes (%) (Auto) 9.3, Eosinophils (%) (Auto) 2.5, Basophils (%) (Auto) 0.9, Sodium Level 140, Potassium Level 3.8, Chloride Level 107, Carbon Dioxide Level 23, Anion Gap 11, Blood Urea Nitrogen 5L, Creatinine 0.3L, Estimat Glomerular Filtration Rate > 60, Glucose Level 105, Calcium Level 9.2, Total Bilirubin 0.7, Aspartate Amino Transf (AST/SGOT) 22, Alanine Aminotransferase (ALT/SGPT) 69, Alkaline Phosphatase 115, Total Protein 8.1, Albumin 3.1L, Globulin 5.0, Albumin/Globulin Ratio 0.6L Height (Feet): 5 Height (Inches): 8.00 Weight (Pounds): 121 Objective WDWN NAD clear breath sounds bilaterally without rhonchi or wheeze [id number] without MRG NABS GT in place no CCE quad trach Bob Cassidy MD April 16, 2018 15:55
[2018-04-16 16:00] VITALS: BP 101/65
--- NOTE | 2018-04-16 16:20 | General Progress Note ---
Assessment/Plan Assessment/Plan Assessement - UGIB - resolved (mild gastritis) - abdominal pain, ? etiology - abnormal LFT - passed stone (sudden jump in LFT) - ALS - Resp failure - dysphagia - Anemia - ? colonic abnormality on CT - a doubtful finding Recommendations - will repeat HIDA, this time with CCK (Tues) - check OB - consider colonoscopy - follow LFT - Resume TF - but change to gtt instead of bolus - follow labs - await transfer to [place] Subjective Allergies: Coded Allergies: No Known Allergies (Unverified , 04/08/18) Subjective no new events (+) BM still with abd pain d/w patient re w/u to date Objective Last 24 Hour Vital Signs Date Time Temp Pulse Resp B/P (MAP) Pulse Ox O2 Delivery O2 Flow Rate FiO2 04/16/18 15:18 84 14 21 04/16/18 13:25 97.5 04/16/18 12:57 97.5 04/16/18 12:50 73 14 99 Mechanical Ventilator 21 04/16/18 12:44 73 14 21 04/16/18 12:43 73 14 98 Mechanical Ventilator 21 04/16/18 12:00 97.5 59 24 99/65 99 Mechanical Ventilator 21 97.5 04/16/18 12:00 21 04/16/18 12:00 55 04/16/18 10:51 77 14 21 04/16/18 09:05 72 14 21 04/16/18 08:00 21 04/16/18 08:00 60 04/16/18 07:40 71 14 99 Mechanical Ventilator 21 04/16/18 07:31 71 14 99 Mechanical Ventilator 21 04/16/18 07:28 69 14 21 04/16/18 05:21 77 15 21 04/16/18 04:00 98.4 56 15 108/70 100 Mechanical Ventilator 21 98.4 04/16/18 04:00 21 04/16/18 04:00 65 04/16/18 02:30 75 14 21 04/16/18 01:58 98.4 04/16/18 01:25 82 14 99 Mechanical Ventilator 21 04/16/18 01:18 69 14 98 Mechanical Ventilator 21 04/16/18 01:16 69 14 21 04/16/18 00:00 65 04/16/18 00:00 98.4 67 15 104/73 100 Mechanical Ventilator 21 98.4 04/15/18 23:07 98.1 04/15/18 22:45 73 14 21 04/15/18 22:08 98.1 04/15/18 21:24 81 18 21 04/15/18 20:00 21 04/15/18 20:00 98.1 81 14 116/75 100 Mechanical Ventilator 21 98.1 04/15/18 20:00 69 04/15/18 19:58 93 14 99 Mechanical Ventilator 21 04/15/18 19:26 78 14 21 04/15/18 19:26 21 04/15/18 19:26 78 14 97 Mechanical Ventilator 21 04/15/18 18:22 98.1 04/15/18 17:20 66 23 21 Intake and Output 04/15/18 04/16/18 19:00 07:00 Intake Total 1025 ml 1155 ml Output Total 800 ml 700 ml Balance 225 ml 455 ml IV Total 825 ml 845 ml Tube Feeding 250 ml Other 200 ml 60 ml Output Urine Total 800 ml 700 ml # Voids 4 3 # Bowel Movements 2 Laboratory Tests 04/16/18 04:15: White Blood Count 11.4H, Red Blood Count 3.29L, Hemoglobin 9.9L, Hematocrit 30.5L, Mean Corpuscular Volume 93, Mean Corpuscular Hemoglobin 30.2, Mean Corpuscular Hemoglobin Concent 32.6, Red Cell Distribution Width 12.7, Platelet Count 304, Mean Platelet Volume 6.2L, Neutrophils (%) (Auto) 66.7, Lymphocytes ( %) (Auto) 20.7, Monocytes (%) (Auto) 9.3, Eosinophils (%) (Auto) 2.5, Basophils (%) (Auto) 0.9, Sodium Level 140, Potassium Level 3.8, Chloride Level 107, Carbon Dioxide Level 23, Anion Gap 11, Blood Urea Nitrogen 5L, Creatinine 0.3L, Estimat Glomerular Filtration Rate > 60, Glucose Level 105, Calcium Level 9.2, Total Bilirubin 0.7, Aspartate Amino Transf (AST/SGOT) 22, Alanine Aminotransferase (ALT/SGPT) 69, Alkaline Phosphatase 115, Total Protein 8.1, Albumin 3.1L, Globulin 5.0, Albumin/Globulin Ratio 0.6L Height (Feet): 5 Height (Inches): 8.00 Weight (Pounds): 121 Objective WDWN man NCAT coarse BS RR abd soft flat, (+)PEG no edema Akiko Dye MD April 16, 2018 16:20
[2018-04-16 20:00] VITALS: BP 100/70
[2018-04-16] MEDS: Dyna-Hex 2% Top Sol 2oz TOPIC SCH (20:14)
[2018-04-17] VITALS: BP 107/72
[2018-04-17] MEDS: Albuterol/Ipratropium 3ml neb HHN SCH ×4 (01:03→20:56)
[2018-04-17] MEDS: Morphine Sulfate 4mg/ml Inj IVP PRN ×3 (01:15→16:35)
[2018-04-17] MEDS: DiphenhydrAMINE 50mg/ml Inj IVP PRN (01:19)
[2018-04-17] MEDS: Zolpidem 5mg tab ORAL PRN ×2 (01:27→22:37)
[2018-04-17 04:00] VITALS: BP 102/71
--- NOTE | 2018-04-17 06:57 | General Progress Note ---
Assessment/Plan Assessment/Plan IMPRESSION gastritis trach gallstones anemia possible cholecystitis ALS leukocytosis possible uti- negative cultures PLAN repeat hiDA with CCK HIDA negative vent pain controlled maintain meds feeds per [facility] Subjective Allergies: Coded Allergies: No Known Allergies (Unverified , 04/08/18) Subjective care noted control of pain with meds repeat HIDA on wednesday Objective Last 24 Hour Vital Signs Date Time Temp Pulse Resp B/P (MAP) Pulse Ox O2 Delivery O2 Flow Rate FiO2 04/17/18 06:28 98.9 04/17/18 05:58 98.9 04/17/18 05:27 79 14 21 04/17/18 04:00 98.2 81 18 102/71 99 Mechanical Ventilator 21 98.2 04/17/18 04:00 21 04/17/18 04:00 80 04/17/18 02:44 81 14 21 04/17/18 01:27 82 14 99 Mechanical Ventilator 21 04/17/18 01:15 98.9 04/17/18 01:03 73 14 98 Mechanical Ventilator 21 04/17/18 01:03 73 14 21 04/17/18 00:00 21 04/17/18 00:00 96 04/17/18 00:00 98.8 77 30 107/72 99 Mechanical Ventilator 21 98.8 04/16/18 23:16 76 14 21 04/16/18 21:11 79 15 21 04/16/18 20:00 87 04/16/18 20:00 21 04/16/18 20:00 98.9 78 30 100/70 99 Mechanical Ventilator 21 98.9 04/16/18 19:37 76 14 100 Mechanical Ventilator 21 04/16/18 19:15 75 14 98 Mechanical Ventilator 21 04/16/18 19:12 75 14 21 04/16/18 17:26 97.5 04/16/18 17:00 82 14 21 04/16/18 16:18 89 04/16/18 16:00 21 04/16/18 16:00 97.3 65 30 101/65 99 Mechanical Ventilator 21 97.3 04/16/18 15:18 84 14 21 04/16/18 12:57 97.5 04/16/18 12:50 73 14 99 Mechanical Ventilator 21 04/16/18 12:44 73 14 21 04/16/18 12:43 73 14 98 Mechanical Ventilator 21 04/16/18 12:00 97.5 59 24 99/65 99 Mechanical Ventilator 21 97.5 04/16/18 12:00 21 04/16/18 12:00 55 04/16/18 10:51 77 14 21 04/16/18 09:05 72 14 21 04/16/18 08:00 21 04/16/18 08:00 60 04/16/18 07:40 71 14 99 Mechanical Ventilator 21 04/16/18 07:31 71 14 99 Mechanical Ventilator 21 04/16/18 07:28 69 14 21 Intake and Output 04/16/18 04/17/18 19:00 07:00 Intake Total 1425 ml 250 ml Balance 1425 ml 250 ml IV Total 675 ml Tube Feeding 750 ml 250 ml # Voids 3 # Bowel Movements 4 Height (Feet): 5 Height (Inches): 8.00 Weight (Pounds): 121 Objective WDWN NAD clear breath sounds bilaterally without rhonchi or wheeze [id number] without MRG NABS GT in place no CCE quad trach Bob Cassidy MD April 17, 2018 06:57
[2018-04-17] MEDS: Venlafaxine 25mg tab GT SCH ×2 (09:28→20:05)
[2018-04-17] MEDS: Pantoprazole Inj IVP SCH (09:28)
--- NOTE | 2018-04-17 10:07 | General Progress Note ---
Assessment/Plan Assessment/Plan aAssessement - UGIB - resolved (mild gastritis) - abdominal pain, ? etiology, ? GB - abnormal LFT - passed stone (sudden jump in LFT) - ALS - Resp failure - dysphagia - Anemia - ? colonic abnormality on CT - a doubtful finding Recommendations - will repeat HIDA, this time with CCK (Tues) - check OB - consider colonoscopy - follow LFT - follow labs - await transfer to [place] Subjective Allergies: Coded Allergies: No Known Allergies (Unverified , 04/08/18) Subjective Feels same still with abd pain asking for narcotics patient refused trial of ATC tube fees awaits HIDA/CCK Objective Last 24 Hour Vital Signs Date Time Temp Pulse Resp B/P (MAP) Pulse Ox O2 Delivery O2 Flow Rate FiO2 04/17/18 09:07 75 16 21 04/17/18 08:00 21 04/17/18 07:38 78 15 99 Mechanical Ventilator 04/17/18 07:27 77 15 21 04/17/18 07:27 75 15 98 Mechanical Ventilator 21 04/17/18 06:28 98.9 04/17/18 05:58 98.9 04/17/18 05:27 79 14 21 04/17/18 04:00 98.2 81 18 102/71 99 Mechanical Ventilator 21 98.2 04/17/18 04:00 21 04/17/18 04:00 80 04/17/18 02:44 81 14 21 04/17/18 01:27 82 14 99 Mechanical Ventilator 21 04/17/18 01:15 98.9 04/17/18 01:03 73 14 98 Mechanical Ventilator 21 04/17/18 01:03 73 14 21 04/17/18 00:00 21 04/17/18 00:00 96 04/17/18 00:00 98.8 77 30 107/72 99 Mechanical Ventilator 21 98.8 04/16/18 23:16 76 14 21 04/16/18 21:11 79 15 21 04/16/18 20:00 87 04/16/18 20:00 21 04/16/18 20:00 98.9 78 30 100/70 99 Mechanical Ventilator 21 98.9 04/16/18 19:37 76 14 100 Mechanical Ventilator 21 04/16/18 19:15 75 14 98 Mechanical Ventilator 21 04/16/18 19:12 75 14 21 04/16/18 17:26 97.5 04/16/18 17:00 82 14 21 04/16/18 16:18 89 04/16/18 16:00 21 04/16/18 16:00 97.3 65 30 101/65 99 Mechanical Ventilator 21 97.3 04/16/18 15:18 84 14 21 04/16/18 12:57 97.5 04/16/18 12:50 73 14 99 Mechanical Ventilator 21 04/16/18 12:44 73 14 21 04/16/18 12:43 73 14 98 Mechanical Ventilator 21 04/16/18 12:00 97.5 59 24 99/65 99 Mechanical Ventilator 21 97.5 04/16/18 12:00 21 04/16/18 12:00 55 04/16/18 10:51 77 14 21 Intake and Output 04/16/18 04/17/18 19:00 07:00 Intake Total 1425 ml 250 ml Balance 1425 ml 250 ml IV Total 675 ml Tube Feeding 750 ml 250 ml # Voids 3 # Bowel Movements 4 Height (Feet): 5 Height (Inches): 8.00 Weight (Pounds): 121 Objective WDWN man NCAT (+) trach coarse BS RR abd soft flat, (+)PEG no edema Akiko Dye MD April 17, 2018 10:07
[2018-04-17 12:00] VITALS: BP 91/62
[2018-04-17] MEDS ORDERED: NS 275ml ONE (13:51)
[2018-04-17] MEDS: HYDROmorphone 4mg tab GT PRN (14:55)
[2018-04-17 16:00] VITALS: BP 102/66
[2018-04-17] MEDS ORDERED: Morphine Sulfate 4mg/ml Inj IVP PRN (16:30)
[2018-04-17 20:00] VITALS: BP 105/68
[2018-04-17] MEDS: Dyna-Hex 2% Top Sol 2oz TOPIC SCH (20:05)
[2018-04-18] VITALS: BP 109/74
[2018-04-18] MEDS: Morphine Sulfate 4mg/ml Inj IVP PRN (00:28)
[2018-04-18] MEDS: Albuterol/Ipratropium 3ml neb HHN SCH ×4 (01:00→20:09)
[2018-04-18] MEDS: Zolpidem 5mg tab ORAL PRN ×2 (02:15→22:29)
[2018-04-18 08:00] VITALS: BP 100/67
--- NOTE | 2018-04-18 08:20 | General Progress Note ---
Assessment/Plan Assessment/Plan IMPRESSION gastritis trach gallstones anemia possible cholecystitis ALS leukocytosis PLAN repeat hiDA with CCK HIDA negative vent; d/w surgery to replace trach if able pain controlled maintain meds feeds per gi appears comfortable [facility] Subjective Allergies: Coded Allergies: No Known Allergies (Unverified , 04/08/18) Subjective care noted control of pain with meds repeat HIDA on wednesday Objective Last 24 Hour Vital Signs Date Time Temp Pulse Resp B/P (MAP) Pulse Ox O2 Delivery O2 Flow Rate FiO2 04/18/18 07:23 65 14 21 04/18/18 07:22 69 14 99 Mechanical Ventilator 21 04/18/18 07:10 65 14 97 Mechanical Ventilator 21 04/18/18 05:17 71 14 21 04/18/18 04:00 63 04/18/18 04:00 21 04/18/18 03:22 80 16 21 04/18/18 01:20 72 15 99 Mechanical Ventilator 21 04/18/18 01:18 78 14 21 04/18/18 01:14 77 15 98 Mechanical Ventilator 21 04/18/18 00:58 97.7 04/18/18 00:28 97.7 04/18/18 00:00 77 04/18/18 00:00 97.6 68 20 109/74 97 Mechanical Ventilator 21 97.6 04/18/18 00:00 21 04/17/18 23:24 71 14 21 04/17/18 20:59 76 14 21 04/17/18 20:00 21 04/17/18 20:00 82 04/17/18 20:00 97.7 77 14 105/68 98 Mechanical Ventilator 21 97.7 04/17/18 19:29 77 14 99 Mechanical Ventilator 21 04/17/18 19:24 79 26 98 Mechanical Ventilator 21 04/17/18 19:08 79 26 21 04/17/18 17:28 75 14 21 04/17/18 16:35 97.7 04/17/18 16:00 97.7 63 19 102/66 98 Mechanical Ventilator 21 97.7 04/17/18 16:00 60 04/17/18 16:00 21 04/17/18 15:50 97.4 04/17/18 15:10 77 14 21 04/17/18 14:55 97.4 04/17/18 12:37 80 15 21 04/17/18 12:36 80 15 99 Mechanical Ventilator 04/17/18 12:28 81 14 97 Mechanical Ventilator 21 04/17/18 12:04 21 04/17/18 12:00 68 04/17/18 12:00 97.4 61 19 91/62 97 Mechanical Ventilator 21 97.4 04/17/18 10:48 81 16 21 04/17/18 09:07 75 16 21 Intake and Output 04/17/18 04/18/18 19:00 07:00 Intake Total 780 ml Balance 780 ml Tube Feeding 750 ml Other 30 ml # Voids 4 4 # Bowel Movements 1 Height (Feet): 5 Height (Inches): 8.00 Weight (Pounds): 121 Objective WDWN NAD clear breath sounds bilaterally without rhonchi or wheeze [id number] without MRG NABS GT in place no CCE quad trach Bob Cassidy MD April 18, 2018 08:20
--- NOTE | 2018-04-18 09:23 | General Progress Note ---
Assessment/Plan Assessment/Plan aAssessement - UGIB - resolved (mild gastritis) - abdominal pain, ? etiology, ? GB - abnormal LFT - passed stone (sudden jump in LFT) - now LFT normal - ALS - Resp failure - dysphagia - Anemia - ? colonic abnormality on CT - a doubtful finding Recommendations - will repeat HIDA, this time with CCK (Tues) - check OB - still pending - consider colonoscopy - follow LFT - follow labs - await transfer to [place] Subjective Allergies: Coded Allergies: No Known Allergies (Unverified , 04/08/18) Subjective Feels same still with abd pain getting high dose narcotics awaits HIDA/CCK Objective Last 24 Hour Vital Signs Date Time Temp Pulse Resp B/P (MAP) Pulse Ox O2 Delivery O2 Flow Rate FiO2 04/18/18 07:23 65 14 21 04/18/18 07:22 69 14 99 Mechanical Ventilator 21 04/18/18 07:10 65 14 97 Mechanical Ventilator 21 04/18/18 05:17 71 14 21 04/18/18 04:00 63 04/18/18 04:00 21 04/18/18 03:22 80 16 21 04/18/18 01:20 72 15 99 Mechanical Ventilator 21 04/18/18 01:18 78 14 21 04/18/18 01:14 77 15 98 Mechanical Ventilator 21 04/18/18 00:58 97.7 04/18/18 00:28 97.7 04/18/18 00:00 77 04/18/18 00:00 97.6 68 20 109/74 97 Mechanical Ventilator 21 97.6 04/18/18 00:00 21 04/17/18 23:24 71 14 21 04/17/18 20:59 76 14 21 04/17/18 20:00 21 04/17/18 20:00 82 04/17/18 20:00 97.7 77 14 105/68 98 Mechanical Ventilator 21 97.7 04/17/18 19:29 77 14 99 Mechanical Ventilator 21 04/17/18 19:24 79 26 98 Mechanical Ventilator 21 04/17/18 19:08 79 26 21 04/17/18 17:28 75 14 21 04/17/18 16:35 97.7 04/17/18 16:00 97.7 63 19 102/66 98 Mechanical Ventilator 21 97.7 04/17/18 16:00 60 04/17/18 16:00 21 04/17/18 15:50 97.4 04/17/18 15:10 77 14 21 04/17/18 14:55 97.4 04/17/18 12:37 80 15 21 04/17/18 12:36 80 15 99 Mechanical Ventilator 04/17/18 12:28 81 14 97 Mechanical Ventilator 21 04/17/18 12:04 21 04/17/18 12:00 68 04/17/18 12:00 97.4 61 19 91/62 97 Mechanical Ventilator 21 97.4 04/17/18 10:48 81 16 21 Intake and Output 04/17/18 04/18/18 19:00 07:00 Intake Total 780 ml Balance 780 ml Tube Feeding 750 ml Other 30 ml # Voids 4 4 # Bowel Movements 1 Height (Feet): 5 Height (Inches): 8.00 Weight (Pounds): 121 Objective WDWN man NCAT (+) trach coarse BS RR abd soft flat, (+) PEG, (+) epigastric / subziphoid TTP no edema Akiko Dye MD April 18, 2018 09:23
[2018-04-18 09:27] LABS: EOSINOPHILS % (AUTO) 2.5 % (0.0-3.0); HEMATOCRIT 30.4 % (42.0-52.0); HEMOGLOBIN 9.9 G/DL (14.2-18.0); MEAN CORPUSCULAR VOLUME 94 FL (80-99); MONOCYTES % (AUTO) 7.1 % (1.0-10.0); NEUTROPHILS % (AUTO) 70.4 % (45.0-75.0); PLATELET COUNT 324 K/UL (150-450); RED BLOOD COUNT 3.25 M/UL (4.70-6.10); RED CELL DISTRIBUTION WIDTH 12.5 % (11.6-14.8); WHITE BLOOD COUNT 11.1 K/UL (4.8-10.8)
[2018-04-18] MEDS ORDERED: Sorbitol Solution UD 30ml GT ONE (09:30)
[2018-04-18 09:55] LABS: ALANINE AMINOTRANSFERASE 43 U/L (12-78); ALBUMIN 3.1 G/DL (3.4-5.0); ALBUMIN/GLOBULIN RATIO 0.6 (1.0-2.7); ALKALINE PHOSPHATASE 87 U/L (46-116); ANION GAP 11 mmol/L (5-15); ASPARTATE AMINO TRANSFERASE 14 U/L (15-37); BILIRUBIN,TOTAL 0.7 MG/DL (0.2-1.0); BLOOD UREA NITROGEN 10 mg/dL (7-18); CALCIUM 9.1 MG/DL (8.5-10.1); CARBON DIOXIDE 24 MMOL/L (21-32); CHLORIDE 105 MMOL/L (98-107); CREATININE 0.3 MG/DL (0.55-1.30); POTASSIUM 3.5 MMOL/L (3.5-5.1); SODIUM 140 MMOL/L (136-145)
[2018-04-18] MEDS: Pantoprazole Inj IVP SCH (11:03)
[2018-04-18] MEDS: Venlafaxine 25mg tab GT SCH ×2 (11:03→21:27)
--- NOTE | 2018-04-18 14:27 | Operative Note - PDOC ---
Operative Note Operative Note Chief Complaint: trach change Pre-op Diagnosis: trach vent dependant Procedure: change of tracheostomy tube Post-op Diagnosis: trach vent dependant Post-op Diagnosis: same as pre-op Surgeon: damian Provider Contracting Consultant: RT Anesthesiologist: Alexander patel Specimen: none Complications: none Condition: stable Estimated Blood Loss: none Drains: none Implant(s) used?: Yes - 8f trach Indications for Procedure 52M vent dependant with mcc tracheostomy. has not had trach changed for some time now and trach change recommended and indicated. family provided trach for change as they have been instructed to have it changed monthly. consent obtained. procedure at bedside with RT present. Description of Procedure patient made comfortable. secretions suctioned. trach tie removed. trach balloon deflated. patient positioned appropriately and prior trach removed. new trach inserted without complication. trach balloon insufflated. trach tie and dressings placed. patient placed back to vent and stable with good volumes. Bry Fish April 18, 2018 14:27
[2018-04-18 16:00] VITALS: BP 130/82
[2018-04-18] MEDS ORDERED: NS 275ml ONE (16:25)
[2018-04-18] MEDS ORDERED: Sterile Water Irrig 1000ml IRRIG ONE (16:25)
[2018-04-18 20:00] VITALS: BP 136/88
[2018-04-18] MEDS: Dyna-Hex 2% Top Sol 2oz TOPIC SCH (21:27)
[2018-04-19] MEDS: Albuterol/Ipratropium 3ml neb HHN SCH ×4 (01:03→19:48)
[2018-04-19] MEDS: Zolpidem 5mg tab ORAL PRN ×2 (04:08→21:46)
[2018-04-19 07:20] LABS: ALANINE AMINOTRANSFERASE 39 U/L (12-78); ALBUMIN 3.2 G/DL (3.4-5.0); ALBUMIN/GLOBULIN RATIO 0.6 (1.0-2.7); ALKALINE PHOSPHATASE 84 U/L (46-116); ANION GAP 11 mmol/L (5-15); ASPARTATE AMINO TRANSFERASE 14 U/L (15-37); BILIRUBIN,TOTAL 0.6 MG/DL (0.2-1.0); BLOOD UREA NITROGEN 14 mg/dL (7-18); CALCIUM 9.2 MG/DL (8.5-10.1); CARBON DIOXIDE 23 MMOL/L (21-32); CHLORIDE 106 MMOL/L (98-107); CREATININE 0.3 MG/DL (0.55-1.30); POTASSIUM 3.5 MMOL/L (3.5-5.1); SODIUM 140 MMOL/L (136-145)
[2018-04-19 07:21] LABS: BASOPHILS % (AUTO) 0.9 % (0.0-2.0); EOSINOPHILS % (AUTO) 1.3 % (0.0-3.0); HEMATOCRIT 30.4 % (42.0-52.0); HEMOGLOBIN 10.1 G/DL (14.2-18.0); LYMPHOCYTES % (AUTO) 14.1 % (20.0-45.0); MEAN CORPUSCULAR VOLUME 92 FL (80-99); MONOCYTES % (AUTO) 7.9 % (1.0-10.0); NEUTROPHILS % (AUTO) 75.9 % (45.0-75.0); PLATELET COUNT 368 K/UL (150-450); RED BLOOD COUNT 3.32 M/UL (4.70-6.10); RED CELL DISTRIBUTION WIDTH 12.5 % (11.6-14.8)
[2018-04-19 08:00] VITALS: BP 94/63
[2018-04-19] MEDS: Pantoprazole Inj IVP SCH (08:42)
[2018-04-19] MEDS: Venlafaxine 25mg tab GT SCH ×2 (08:42→21:45)
--- NOTE | 2018-04-19 11:36 | Diagnostic Imaging Report ---
Indication: Dyspnea Comparison: None A single view chest radiograph was obtained. Findings: Cardiomediastinal appearance is within normal limits for age. Tracheostomy noted. There is a right PICC line the tip of which is in the SVC. Pulmonary vascularity is appropriate. The diaphragmatic contour is smooth and costophrenic angles are sharp. No pleural effusions are identified. The bones are unremarkable. Impression: No acute findings
--- NOTE | 2018-04-19 11:54 | General Progress Note ---
Assessment/Plan Assessment/Plan IMPRESSION gastritis trach gallstones anemia possible cholecystitis ALS leukocytosis PLAN repeat hiDA with CCK panculture ID eval HIDA negative vent; d/w surgery to replace trach if able pain controlled maintain meds feeds per gi appears [facility] Subjective Allergies: Coded Allergies: No Known Allergies (Unverified , 04/08/18) Subjective care noted control of pain with meds repeat HIDA today wbc up Objective Last 24 Hour Vital Signs Date Time Temp Pulse Resp B/P (MAP) Pulse Ox O2 Delivery O2 Flow Rate FiO2 04/19/18 10:57 92 14 21 04/19/18 08:58 91 14 21 04/19/18 08:00 86 04/19/18 08:00 21 04/19/18 08:00 98.1 85 14 94/63 97 Mechanical Ventilator 21 98.1 04/19/18 07:16 95 14 98 Mechanical Ventilator 21 04/19/18 07:12 95 14 99 Mechanical Ventilator 21 04/19/18 07:00 95 14 21 04/19/18 05:27 93 14 21 04/19/18 04:00 21 04/19/18 03:50 71 04/19/18 03:17 85 14 21 04/19/18 01:11 96 14 98 Mechanical Ventilator 21 04/19/18 01:04 93 14 98 Mechanical Ventilator 21 04/19/18 01:03 94 14 21 04/18/18 23:52 100 04/18/18 22:50 110 17 21 04/18/18 20:38 106 14 30 04/18/18 20:29 104 15 99 Mechanical Ventilator 30 04/18/18 20:09 100 16 98 Mechanical Ventilator 30 04/18/18 20:01 102 04/18/18 20:00 21 04/18/18 20:00 98.1 116 19 136/88 99 Mechanical Ventilator 21 98.1 04/18/18 19:26 99 16 30 04/18/18 17:12 80 15 30 04/18/18 16:00 99.4 98 20 130/82 96 Mechanical Ventilator 21 99.4 04/18/18 16:00 21 04/18/18 16:00 100 04/18/18 15:15 94 14 30 04/18/18 13:32 114 14 99 Mechanical Ventilator 21 04/18/18 13:29 124 14 30 04/18/18 13:20 118 14 98 Mechanical Ventilator 30 04/18/18 12:00 67 04/18/18 12:00 21 Intake and Output 04/18/18 04/19/18 19:00 07:00 Intake Total 560 ml 100 ml Output Total 500 ml Balance 60 ml 100 ml Tube Feeding 500 ml Other 60 ml 100 ml Output Urine Total 500 ml # Voids 4 # Bowel Movements 1 Laboratory Tests 04/19/18 06:45: White Blood Count 14.0H, Red Blood Count 3.32L, Hemoglobin 10.1L, Hematocrit 30.4L, Mean Corpuscular Volume 92, Mean Corpuscular Hemoglobin 30.5, Mean Corpuscular Hemoglobin Concent 33.3, Red Cell Distribution Width 12.5, Platelet Count 368, Mean Platelet Volume 6.2L, Neutrophils (%) (Auto) 75.9H, Lymphocytes (%) (Auto) 14.1L, Monocytes (%) (Auto) 7.9, Eosinophils (%) (Auto) 1.3, Basophils (%) (Auto) 0.9, Sodium Level 140, Potassium Level 3.5, Chloride Level 106, Carbon Dioxide Level 23, Anion Gap 11, Blood Urea Nitrogen 14, Creatinine 0.3L, Estimat Glomerular Filtration Rate > 60, Glucose Level 105, Calcium Level 9.2, Total Bilirubin 0.6, Aspartate Amino Transf (AST/SGOT) 14L, Alanine Aminotransferase (ALT/SGPT) 39, Alkaline Phosphatase 84, Total Protein 8.3H, Albumin 3.2L, Globulin 5.1, Albumin/Globulin Ratio 0.6L Height (Feet): 5 Height (Inches): 8.00 Weight (Pounds): 121 Objective WDWN NAD clear breath sounds bilaterally without rhonchi or wheeze [id number] without MRG NABS GT in place no CCE quad trach Bob Cassidy MD April 19, 2018 11:54
[2018-04-19 12:00] VITALS: BP 139/73
[2018-04-19] MEDS ORDERED: Vancomycin 1250mg/D5W 250ml IVPB ONE (13:00)
[2018-04-19] MEDS: metroNIDAZOLE 500mg tab ORAL SCH ×2 (13:09→21:45)
[2018-04-19] MEDS: Piperacillin/Tazobactam 3.375 GM in D5W 110 ML IVPB SCH ×2 (15:33→21:46)
--- NOTE | 2018-04-19 15:45 | Consultation ---
DATE OF CONSULTATION: 04/19/2018 INFECTIOUS DISEASES CONSULTATION CONSULTING PHYSICIAN: Roberto Allen M.D. REFERRING PHYSICIAN: Bob Cassidy M.D. REASON FOR CONSULTATION: Pneumonia. HISTORY OF PRESENTING ILLNESS: This is a 52-year-old gentleman with history of amyotrophic lateral sclerosis, respiratory failure, status post tracheostomy, who comes in with abdominal pain as well as blood in the vomitus. An Infectious Diseases consultation has been obtained for leukocytosis and pneumonia. PAST MEDICAL HISTORY: 1. History of amyotrophic lateral sclerosis. 2. Respiratory failure, status post tracheostomy. 3. Status post G-tube placement. SOCIAL HISTORY: No history of smoking, alcohol, or drug use. FAMILY HISTORY: Unknown. REVIEW OF SYSTEMS: Unable to obtain currently. MEDICATIONS: As an inpatient, the patient is on Dilaudid, morphine, Ambien, albuterol, chlorhexidine gluconate, Mucomyst, Benadryl, mineral oil, venlafaxine, baclofen, Protonix, Tylenol, milk of magnesia, and Mylanta. ALLERGIES: No known drug allergies. PHYSICAL EXAMINATION: VITAL SIGNS: Temperature of 98.1, T-max of 99.4, pulse of 92, respiratory rate of 14, blood pressure 94/63, and O2 saturation of 97%. HEENT: Pupils equally reactive to light and accommodation. Mouth appears clean without thrush. NECK: Supple. Tracheostomy site appears clean. CARDIOVASCULAR: Regular rate and rhythm. No murmurs. LUNGS: Clear to auscultation bilaterally. No crackles. No wheezes. ABDOMEN: Soft and nontender. G-tube site appears clean. EXTREMITIES: No cyanosis, no clubbing, no edema. Right arm PICC line noted. LABORATORY AND DIAGNOSTIC DATA: White count of 14, hemoglobin 10.1, hematocrit 30.4, MCV 92, and platelet count of 368 with neutrophils of 75%. Sodium 140, potassium 3.5, chloride 106, bicarb 23, BUN 14, creatinine 0.3, glucose 105, and calcium 9.2. Total bilirubin 0.6. AST 14, ALT 39, and alkaline phosphatase 84. Total protein 8.3. Albumin 3.2. Lipase of 114. Amylase of 49. UA showing 0 to 2 white cells. Urine cultures are negative. Sputum cultures showing normal ed. Stool cultures showing no Salmonella, Shigella, or Campylobacter. Chest x-ray showed no acute findings. HIDA scan was negative. Abdominal ultrasound showing no evidence of gallstones likely prominent CBD. CT abdomen and pelvis on 04/08/2018 showed possible wall thickening in the colon indicates possible colitis. ASSESSMENT: 1. This is a 52-year-old gentleman with history of amyotrophic lateral sclerosis, who comes in with vomiting and now has increasing leukocytosis, would be concerned regarding sepsis or urinary tract infection. 2. Colitis. 3. We would like to rule out pneumonia although the chest x-ray is negative. PLAN: 1. We will order blood cultures, urine cultures, sputum cultures, and stool for C. difficile colitis. 2. We will start the patient on vancomycin, Zosyn, and Flagyl. 3. We will follow up cultures and adjust antibiotics accordingly. I would like to thank, Dr. Cassidy, for this consultation. Roberto Allen M.D. DR: PITER JOB#: [id number] CC: Bob Cassidy M.D.; Fax#: [phone]
[2018-04-19 16:00] VITALS: BP 142/83
[2018-04-19 20:00] VITALS: BP 117/80
--- NOTE | 2018-04-19 21:18 | General Progress Note ---
Assessment/Plan Assessment/Plan aAssessement - UGIB - resolved (mild gastritis) - abdominal pain, ? etiology, ? GB ? Panc - abnormal LFT - passed stone (sudden jump in LFT) - now LFT normal - ALS - Resp failure - dysphagia - Anemia - ? colonic abnormality on CT - a doubtful finding Recommendations - will repeat HIDA,/CCK - or equivalent - check OB - still pending - consider colonoscopy or EUS - follow LFT - follow labs Subjective Allergies: Coded Allergies: No Known Allergies (Unverified , 04/08/18) Subjective Feels same still with abd pain getting high dose narcotics has been getting narcotics for abd pain for months, per elastic attacher overlock HIDA/CCK ordered but CCK apparently in short supply a fatty milk protocol being used instead of CCK Objective Last 24 Hour Vital Signs Date Time Temp Pulse Resp B/P (MAP) Pulse Ox O2 Delivery O2 Flow Rate FiO2 04/19/18 19:47 95 16 21 04/19/18 19:17 92 16 98 Mechanical Ventilator 21 04/19/18 19:07 95 16 99 Mechanical Ventilator 21 04/19/18 17:11 92 14 21 04/19/18 16:00 98.7 88 16 142/83 100 Mechanical Ventilator 21 98.7 04/19/18 16:00 21 04/19/18 16:00 91 04/19/18 15:30 91 14 21 04/19/18 12:59 90 14 98 Mechanical Ventilator 21 04/19/18 12:49 90 14 21 04/19/18 12:49 90 14 99 Mechanical Ventilator 21 04/19/18 12:00 98.2 82 16 139/73 98 Mechanical Ventilator 21 98.2 04/19/18 12:00 21 04/19/18 12:00 61 04/19/18 10:57 92 14 21 04/19/18 08:58 91 14 21 04/19/18 08:00 86 04/19/18 08:00 21 04/19/18 08:00 98.1 85 14 94/63 97 Mechanical Ventilator 21 98.1 04/19/18 07:16 95 14 98 Mechanical Ventilator 21 04/19/18 07:12 95 14 99 Mechanical Ventilator 21 04/19/18 07:00 95 14 21 04/19/18 05:27 93 14 21 04/19/18 04:00 21 5/29/18 03:50 71 04/19/18 03:17 85 14 21 04/19/18 01:11 96 14 98 Mechanical Ventilator 21 04/19/18 01:04 93 14 98 Mechanical Ventilator 21 04/19/18 01:03 94 14 21 04/18/18 23:52 100 04/18/18 22:50 110 17 21 Intake and Output 04/18/18 04/19/18 19:00 07:00 Intake Total 560 ml 100 ml Output Total 500 ml Balance 60 ml 100 ml Tube Feeding 500 ml Other 60 ml 100 ml Output Urine Total 500 ml # Voids 4 # Bowel Movements 1 Laboratory Tests 04/19/18 06:45: White Blood Count 14.0H, Red Blood Count 3.32L, Hemoglobin 10.1L, Hematocrit 30.4L, Mean Corpuscular Volume 92, Mean Corpuscular Hemoglobin 30.5, Mean Corpuscular Hemoglobin Concent 33.3, Red Cell Distribution Width 12.5, Platelet Count 368, Mean Platelet Volume 6.2L, Neutrophils (%) (Auto) 75.9H, Lymphocytes (%) (Auto) 14.1L, Monocytes (%) (Auto) 7.9, Eosinophils (%) (Auto) 1.3, Basophils (%) (Auto) 0.9, Sodium Level 140, Potassium Level 3.5, Chloride Level 106, Carbon Dioxide Level 23, Anion Gap 11, Blood Urea Nitrogen 14, Creatinine 0.3L, Estimat Glomerular Filtration Rate > 60, Glucose Level 105, Calcium Level 9.2, Total Bilirubin 0.6, Aspartate Amino Transf (AST/SGOT) 14L, Alanine Aminotransferase (ALT/SGPT) 39, Alkaline Phosphatase 84, Total Protein 8.3H, Albumin 3.2L, Globulin 5.1, Albumin/Globulin Ratio 0.6L Height (Feet): 5 Height (Inches): 8.00 Weight (Pounds): 121 Objective WDWN man NCAT (+) trach coarse BS RR abd soft flat, (+) PEG, (+) epigastric / subziphoid TTP no edema Akiko Dye MD April 19, 2018 21:18
[2018-04-19] MEDS: Dyna-Hex 2% Top Sol 2oz TOPIC SCH (21:45)
[2018-04-19] MEDS: HYDROmorphone 4mg tab GT PRN (22:18)
[2018-04-20] MEDS: Vancomycin 750mg/NS 250ml IVPB SCH ×2 (00:04→12:13)
[2018-04-20] MEDS: Zolpidem 5mg tab ORAL PRN ×2 (00:05→22:03)
[2018-04-20] MEDS: Albuterol/Ipratropium 3ml neb HHN SCH ×3 (01:06→19:16)
[2018-04-20] MEDS: metroNIDAZOLE 500mg tab ORAL SCH ×3 (06:44→22:03)
[2018-04-20] MEDS: Piperacillin/Tazobactam 3.375 GM in D5W 110 ML IVPB SCH ×3 (06:44→22:03)
[2018-04-20 08:00] VITALS: BP 122/72
--- NOTE | 2018-04-20 08:05 | General Progress Note ---
Assessment/Plan Assessment/Plan aAssessement - UGIB - resolved (mild gastritis) - abdominal pain, ? etiology, ? GB ? Pancreas ? GT related - abnormal LFT - passed stone (sudden jump in LFT) - now LFT normal - ALS - Resp failure - dysphagia - Anemia - ? colonic abnormality on CT - a doubtful finding Recommendations - Check results of HIDA,/CCK - check OB - still pending - consider colonoscopy or EUS - follow LFT - follow labs - re check WBC Subjective Allergies: Coded Allergies: No Known Allergies (Unverified , 04/08/18) Subjective Feels same still with abd pain HIDA /CCK equivalent done yesterday results pending Objective Last 24 Hour Vital Signs Date Time Temp Pulse Resp B/P (MAP) Pulse Ox O2 Delivery O2 Flow Rate FiO2 04/20/18 07:35 75 14 21 04/20/18 05:23 80 14 21 04/20/18 04:00 21 04/20/18 04:00 85 04/20/18 02:36 89 14 21 04/20/18 01:08 89 14 99 Mechanical Ventilator 21 04/20/18 01:02 88 14 99 Mechanical Ventilator 21 04/20/18 00:48 91 14 21 04/20/18 00:00 98 04/20/18 00:00 21 04/19/18 23:17 98.7 04/19/18 22:50 87 14 21 04/19/18 21:07 89 16 21 04/19/18 20:00 95 04/19/18 20:00 97.2 108 19 117/80 98 Mechanical Ventilator 21 97.2 04/19/18 20:00 21 04/19/18 19:47 95 16 21 04/19/18 19:17 92 16 98 Mechanical Ventilator 21 04/19/18 19:07 95 16 99 Mechanical Ventilator 21 04/19/18 17:11 92 14 21 04/19/18 16:00 98.7 88 16 142/83 100 Mechanical Ventilator 21 98.7 04/19/18 16:00 21 04/19/18 16:00 91 04/19/18 15:30 91 14 21 04/19/18 12:59 90 14 98 Mechanical Ventilator 21 04/19/18 12:49 90 14 21 04/19/18 12:49 90 14 99 Mechanical Ventilator 21 04/19/18 12:00 98.2 82 16 139/73 98 Mechanical Ventilator 21 98.2 04/19/18 12:00 21 04/19/18 12:00 61 04/19/18 10:57 92 14 21 04/19/18 08:58 91 14 21 Intake and Output 04/19/18 04/20/18 19:00 07:00 Intake Total 322.000 ml Balance 322.000 ml IV Total 262.000 ml Other 60 ml # Voids 2 Height (Feet): 5 Height (Inches): 8.00 Weight (Pounds): 121 Objective WDWN man NCAT (+) trach coarse BS RR abd soft flat, (+) PEG, (+) epigastric / subxiphoid TTP no edema Akiko Dye MD April 20, 2018 08:05
[2018-04-20] MEDS: Pantoprazole Inj IVP SCH (08:35)
[2018-04-20] MEDS: Venlafaxine 25mg tab GT SCH ×2 (08:36→20:18)
--- NOTE | 2018-04-20 09:22 | General Progress Note ---
Assessment/Plan Assessment/Plan IMPRESSION gastritis trach gallstones anemia possible cholecystitis ALS leukocytosis CXR negative PLAN await results panculture ID eval and antibiotics vent; pain control maintain meds feeds per gi appears comfortable [facility] Subjective Allergies: Coded Allergies: No Known Allergies (Unverified , 04/08/18) Subjective care noted HIDA results pending started on antibiotics Objective Last 24 Hour Vital Signs Date Time Temp Pulse Resp B/P (MAP) Pulse Ox O2 Delivery O2 Flow Rate FiO2 04/20/18 08:00 98.1 92 16 122/72 98 Mechanical Ventilator 21 98.1 04/20/18 07:35 75 14 21 04/20/18 05:23 80 14 21 04/20/18 04:00 21 04/20/18 04:00 85 04/20/18 02:36 89 14 21 04/20/18 01:08 89 14 99 Mechanical Ventilator 21 04/20/18 01:02 88 14 99 Mechanical Ventilator 21 04/20/18 00:48 91 14 21 04/20/18 00:00 98 04/20/18 00:00 21 04/19/18 23:17 98.7 04/19/18 22:50 87 14 21 04/19/18 21:07 89 16 21 04/19/18 20:00 95 04/19/18 20:00 97.2 108 19 117/80 98 Mechanical Ventilator 21 97.2 04/19/18 20:00 21 04/19/18 19:47 95 16 21 04/19/18 19:17 92 16 98 Mechanical Ventilator 21 04/19/18 19:07 95 16 99 Mechanical Ventilator 21 04/19/18 17:11 92 14 21 04/19/18 16:00 98.7 88 16 142/83 100 Mechanical Ventilator 21 98.7 04/19/18 16:00 21 04/19/18 16:00 91 04/19/18 15:30 91 14 21 04/19/18 12:59 90 14 98 Mechanical Ventilator 21 04/19/18 12:49 90 14 21 04/19/18 12:49 90 14 99 Mechanical Ventilator 21 04/19/18 12:00 98.2 82 16 139/73 98 Mechanical Ventilator 21 98.2 04/19/18 12:00 21 04/19/18 12:00 61 04/19/18 10:57 92 14 21 Intake and Output 04/19/18 04/20/18 19:00 07:00 Intake Total 322.000 ml Balance 322.000 ml IV Total 262.000 ml Other 60 ml # Voids 2 1 Height (Feet): 5 Height (Inches): 8.00 Weight (Pounds): 121 Objective WDWN NAD clear breath sounds bilaterally without rhonchi or wheeze [id number] without MRG NABS GT in place no CCE quad trach Bob Cassidy MD April 20, 2018 09:22
[2018-04-20 10:10] LABS: BASOPHILS % (AUTO) 1.4 % (0.0-2.0); HEMATOCRIT 30.5 % (42.0-52.0); LYMPHOCYTES % (AUTO) 7.5 % (20.0-45.0); MEAN CORPUSCULAR VOLUME 94 FL (80-99); MONOCYTES % (AUTO) 7.4 % (1.0-10.0); NEUTROPHILS % (AUTO) 81.7 % (45.0-75.0); PLATELET COUNT 348 K/UL (150-450); RED BLOOD COUNT 3.26 M/UL (4.70-6.10); RED CELL DISTRIBUTION WIDTH 12.9 % (11.6-14.8); WHITE BLOOD COUNT 11.6 K/UL (4.8-10.8)
[2018-04-20 12:00] VITALS: BP 112/65
--- NOTE | 2018-04-20 12:41 | Diagnostic Imaging Report ---
Indication: Abdominal Pain Technique: 5.4 mCi of technetium 99 m-Choletec was injected intravenously. Planar imaging of the abdomen was then performed every 5 minutes up to 30 minutes and every 10 minutes up to one hour. Oblique views were also obtained. 472 cc of whole milk containing 16 g of fat was administered through the G-tube. Subsequent dynamic imaging performed for an additional 60 minutes for calculation of gallbladder ejection fraction. Findings: There is prompt uptake within the liver with good washout of radiotracer from the liver on subsequent imaging. There is excretion into the biliary ducts. The gallbladder is not visualized. HIDA scan performed on 04/15/2018 showed presence of the gallbladder. Please correlate clinically but the cystic duct may be obstructed now. Bowel activity is demonstrated in a timely fashion indicating patency of the common bile duct. Impression: Nonvisualization of the gallbladder. Cystic duct obstruction may be present. Obviously gallbladder ejection fraction could not be performed under this circumstance.
[2018-04-20 16:00] VITALS: BP 108/58
[2018-04-20] MEDS ORDERED: NS 275ml ONE ×2 (19:49→20:01)
[2018-04-20 20:00] VITALS: BP 91/55
[2018-04-20] MEDS ORDERED: Tubing IV Secondary IV ONE (20:01)
[2018-04-20] MEDS: Dyna-Hex 2% Top Sol 2oz TOPIC SCH (20:18)
[2018-04-20] MEDS ORDERED: DiphenhydrAMINE & Zinc 28g Cream TOPIC PRN (21:45)
[2018-04-20] MEDS: HYDROmorphone 4mg tab GT PRN (22:03)
[2018-04-21] VITALS: BP 124/74
[2018-04-21 00:12] LABS: BASOPHILS % (AUTO) 1.3 % (0.0-2.0); EOSINOPHILS % (AUTO) 3.1 % (0.0-3.0); HEMATOCRIT 30.4 % (42.0-52.0); HEMOGLOBIN 10.5 G/DL (14.2-18.0); LYMPHOCYTES % (AUTO) 9.6 % (20.0-45.0); MEAN CORPUSCULAR VOLUME 92 FL (80-99); MONOCYTES % (AUTO) 9.1 % (1.0-10.0); NEUTROPHILS % (AUTO) 76.9 % (45.0-75.0); PLATELET COUNT 385 K/UL (150-450); RED CELL DISTRIBUTION WIDTH 12.4 % (11.6-14.8); WHITE BLOOD COUNT 12.1 K/UL (4.8-10.8)
[2018-04-21 00:29] LABS: ALANINE AMINOTRANSFERASE 32 U/L (12-78); ALBUMIN 3.2 G/DL (3.4-5.0); ALBUMIN/GLOBULIN RATIO 0.6 (1.0-2.7); ALKALINE PHOSPHATASE 77 U/L (46-116); ANION GAP 11 mmol/L (5-15); ASPARTATE AMINO TRANSFERASE 11 U/L (15-37); BILIRUBIN,TOTAL 0.6 MG/DL (0.2-1.0); BLOOD UREA NITROGEN 11 mg/dL (7-18); CARBON DIOXIDE 24 MMOL/L (21-32); CHLORIDE 105 MMOL/L (98-107); CREATININE 0.4 MG/DL (0.55-1.30); POTASSIUM 3.1 MMOL/L (3.5-5.1); SODIUM 140 MMOL/L (136-145)
[2018-04-21 00:31] LABS: APPEARANCE,URINE CLEAR; BILIRUBIN, URINE NEGATIVE (NEGATIVE); GLUCOSE, URINE (UA) NEGATIVE (NEGATIVE); KETONES,URINE NEGATIVE (NEGATIVE); LEUKOCYTE ESTERASE ,URINE 1+ (NEGATIVE); NITRITE,URINE NEGATIVE (NEGATIVE); PH,URINE 7 (4.5-8.0); PROTEIN,URINE NEGATIVE (NEGATIVE); UROBILINOGEN,URINE NORMAL MG/DL (0.0-1.0)
[2018-04-21] MEDS: Albuterol/Ipratropium 3ml neb HHN SCH ×4 (00:39→18:52)
[2018-04-21 00:45] LABS: COLOR,URINE YELLOW
[2018-04-21] MEDS: Vancomycin 750mg/NS 250ml IVPB SCH ×2 (00:59→12:04)
[2018-04-21] MEDS: Zolpidem 5mg tab ORAL PRN ×2 (02:05→22:02)
[2018-04-21] MEDS: Piperacillin/Tazobactam 3.375 GM in D5W 110 ML IVPB SCH ×3 (05:56→21:58)
[2018-04-21] MEDS: metroNIDAZOLE 500mg tab ORAL SCH ×3 (05:56→21:58)
--- NOTE | 2018-04-21 08:39 | General Progress Note ---
Assessment/Plan Assessment/Plan IMPRESSION gastritis trach gallstones anemia possible cholecystitis ALS leukocytosis staph bacteremia ?cystic duct obstruction PLAN ID eval and antibiotics noted GI follow up ?ERCP vent; pain control maintain meds feeds per gi appears comfortable patient wants to go home Subjective Allergies: Coded Allergies: No Known Allergies (Unverified , 04/08/18) Subjective care noted HIDA results discussed cultures discussed started on antibiotics Objective Last 24 Hour Vital Signs Date Time Temp Pulse Resp B/P (MAP) Pulse Ox O2 Delivery O2 Flow Rate FiO2 04/21/18 07:28 84 15 99 Mechanical Ventilator 21 04/21/18 07:08 77 14 21 04/21/18 07:03 77 14 97 Mechanical Ventilator 21 04/21/18 05:29 72 14 21 04/21/18 04:00 21 04/21/18 04:00 72 04/21/18 04:00 63 04/21/18 02:47 80 14 21 04/21/18 00:49 94 14 95 Mechanical Ventilator 21 04/21/18 00:39 87 14 21 04/21/18 00:39 87 14 97 Mechanical Ventilator 21 04/21/18 00:00 99.0 89 14 124/74 99 Mechanical Ventilator 21 99.0 04/21/18 00:00 21 04/20/18 23:58 63 04/20/18 23:15 95 14 21 04/20/18 22:03 99.5 04/20/18 22:00 99.5 04/20/18 20:55 89 14 21 04/20/18 20:00 21 04/20/18 20:00 98.7 81 14 91/55 99 Mechanical Ventilator 21 98.7 04/20/18 20:00 76 04/20/18 19:26 94 15 95 Mechanical Ventilator 21 04/20/18 19:16 101 14 21 04/20/18 19:16 101 14 98 Mechanical Ventilator 21 04/20/18 16:32 89 15 21 04/20/18 16:27 91 04/20/18 16:00 99.5 72 16 108/58 98 Mechanical Ventilator 21 99.5 04/20/18 16:00 21 04/20/18 14:53 85 14 21 04/20/18 13:53 86 14 99 Mechanical Ventilator 21 04/20/18 13:40 83 14 99 Mechanical Ventilator 21 04/20/18 13:30 81 14 21 04/20/18 12:00 65 04/20/18 12:00 99.5 88 16 112/65 98 Mechanical Ventilator 21 99.5 04/20/18 12:00 21 04/20/18 10:46 80 15 21 04/20/18 09:22 83 14 21 Intake and Output 04/20/18 04/21/18 19:00 07:00 Intake Total 590.000 ml 562.500 ml Output Total 300 ml 300 ml Balance 290.000 ml 262.500 ml Intake Free Water 120 ml 50 ml IV Total 470.000 ml 387.500 ml Tube Feeding 125 ml Output Urine Total 300 ml 300 ml # Voids 1 1 Laboratory Tests 04/20/18 09:45: White Blood Count 11.6H, Red Blood Count 3.26L, Hemoglobin 10.0L, Hematocrit 30.5L, Mean Corpuscular Volume 94, Mean Corpuscular Hemoglobin 30.7, Mean Corpuscular Hemoglobin Concent 32.8, Red Cell Distribution Width 12.9, Platelet Count 348, Mean Platelet Volume 6.0L, Neutrophils (%) (Auto) 81.7H, Lymphocytes (%) (Auto) 7.5L, Monocytes (%) (Auto) 7.4, Eosinophils (%) (Auto) 2.0, Basophils (%) (Auto) 1.4, Vancomycin Level Trough 13.8H 04/20/18 23:30: White Blood Count 12.1H, Red Blood Count 3.30L, Hemoglobin 10.5L, Hematocrit 30.4L, Mean Corpuscular Volume 92, Mean Corpuscular Hemoglobin 31.9H, Mean Corpuscular Hemoglobin Concent 34.6, Red Cell Distribution Width 12.4, Platelet Count 385, Mean Platelet Volume 6.6, Neutrophils (%) (Auto) 76.9H, Lymphocytes ( %) (Auto) 9.6L, Monocytes (%) (Auto) 9.1, Eosinophils (%) (Auto) 3.1H, Basophils (%) (Auto) 1.3, Vancomycin Level Trough 12.1H, Urine Color Yellow, Urine Appearance Clear, Urine pH 7, Urine Specific [place] 1.005, Urine Protein Negative, Urine Glucose (UA) Negative, Urine Ketones Negative, Urine Occult Blood Negative, Urine Nitrite Negative, Urine Bilirubin Negative, Urine Urobilinogen Normal, Urine Leukocyte Esterase 1+H, Urine RBC 0, Urine WBC 2-4, Urine Squamous Epithelial Cells None, Urine Bacteria Few, Urine Yeast FewH, Sodium Level 140, Potassium Level 3.1L, Chloride Level 105, Carbon Dioxide Level 24, Anion Gap 11, Blood Urea Nitrogen 11, Creatinine 0.4L, Estimat Glomerular Filtration Rate > 60, Glucose Level 130H, Calcium Level 9.0, Total Bilirubin 0.6, Aspartate Amino Transf (AST/SGOT) 11L, Alanine Aminotransferase ( ALT/SGPT) 32, Alkaline Phosphatase 77, Total Protein 8.4H, Albumin 3.2L, Globulin 5.2, Albumin/Globulin Ratio 0.6L Height (Feet): 5 Height (Inches): 8.00 Weight (Pounds): 121 Objective WDWN NAD clear breath sounds bilaterally without rhonchi or wheeze [id number] without MRG NABS GT in place no CCE quad trach Bob Cassidy MD April 21, 2018 08:39
[2018-04-21] MEDS: Pantoprazole Inj IVP SCH (09:01)
[2018-04-21] MEDS: Venlafaxine 25mg tab GT SCH ×2 (09:01→20:41)
[2018-04-21 12:00] VITALS: BP 144/81
--- NOTE | 2018-04-21 12:11 | Infectious Diseases Prog Note ---
Assessment/Plan Assessment/Plan A; Bacteremia Cystic duct obstruction Colitis ALS VDRF P: Continue Vancomycin, Zosyn & Flagyl Will f/u cultures Subjective ROS Limited/Unobtainable: Yes Allergies: Coded Allergies: No Known Allergies (Unverified , 04/08/18) Objective Vital Signs Last 24 Hour Vital Signs Date Time Temp Pulse Resp B/P (MAP) Pulse Ox O2 Delivery O2 Flow Rate FiO2 04/21/18 10:56 71 14 21 04/21/18 08:54 79 14 21 04/21/18 08:00 93 04/21/18 08:00 21 04/21/18 07:28 84 15 99 Mechanical Ventilator 21 04/21/18 07:08 77 14 21 04/21/18 07:03 77 14 97 Mechanical Ventilator 21 04/21/18 05:29 72 14 21 04/21/18 04:00 21 04/21/18 04:00 72 04/21/18 04:00 63 04/21/18 02:47 80 14 21 04/21/18 00:49 94 14 95 Mechanical Ventilator 21 04/21/18 00:39 87 14 21 04/21/18 00:39 87 14 97 Mechanical Ventilator 21 04/21/18 00:00 99.0 89 14 124/74 99 Mechanical Ventilator 21 99.0 04/21/18 00:00 21 04/20/18 23:58 63 04/20/18 23:15 95 14 21 04/20/18 22:03 99.5 04/20/18 22:00 99.5 04/20/18 20:55 89 14 21 04/20/18 20:00 21 04/20/18 20:00 98.7 81 14 91/55 99 Mechanical Ventilator 21 98.7 04/20/18 20:00 76 04/20/18 19:26 94 15 95 Mechanical Ventilator 21 04/20/18 19:16 101 14 21 04/20/18 19:16 101 14 98 Mechanical Ventilator 21 04/20/18 16:32 89 15 21 04/20/18 16:27 91 04/20/18 16:00 99.5 72 16 108/58 98 Mechanical Ventilator 21 99.5 04/20/18 16:00 21 04/20/18 14:53 85 14 21 04/20/18 13:53 86 14 99 Mechanical Ventilator 21 04/20/18 13:40 83 14 99 Mechanical Ventilator 21 04/20/18 13:30 81 14 21 Height (Feet): 5 Height (Inches): 8.00 Weight (Pounds): 121 HEENT: status post trach Respiratory/Chest: rhonchi - bilaterally, other - on ventilator Cardiovascular: normal rate, other - R arm PICC line Extremities: no edema Neurologic/Psychiatric: alert, responsive Musculoskeletal: atrophy Microbiology Date/Time Source Procedure Growth Status 04/19/18 12:30 Blood Blood Culture - Preliminary Staphylococcus Species Resulted 04/19/18 12:30 Blood Blood Culture - Preliminary Staphylococcus Species Resulted 04/19/18 11:30 Sputum Gram Stain - Final Resulted 04/19/18 11:30 Sputum Culture - Preliminary Staphylococcus Aureus Usual Respiratory Cassandra Resulted 04/19/18 13:30 Urine,Clean Catch Urine Culture - Preliminary Mixed Gram Positive Organism Resulted Laboratory Tests Test 04/20/18 23:30 White Blood Count 12.1 K/UL (4.8-10.8) H Red Blood Count 3.30 M/UL (4.70-6.10) L Hemoglobin 10.5 G/DL (14.2-18.0) L Hematocrit 30.4 % (42.0-52.0) L Mean Corpuscular Volume 92 FL (80-99) Mean Corpuscular Hemoglobin 31.9 PG (27.0-31.0) H Mean Corpuscular Hemoglobin Concent 34.6 G/DL (32.0-36.0) Red Cell Distribution Width 12.4 % (11.6-14.8) Platelet Count 385 K/UL (150-450) Mean Platelet Volume 6.6 FL (6.5-10.1) Neutrophils (%) (Auto) 76.9 % (45.0-75.0) H Lymphocytes (%) (Auto) 9.6 % (20.0-45.0) L Monocytes (%) (Auto) 9.1 % (1.0-10.0) Eosinophils (%) (Auto) 3.1 % (0.0-3.0) H Basophils (%) (Auto) 1.3 % (0.0-2.0) Urine Color Yellow Urine Appearance Clear Urine pH 7 (4.5-8.0) Urine Specific [place] 1.005 (1.005-1.035) Urine Protein Negative (NEGATIVE) Urine Glucose (UA) Negative (NEGATIVE) Urine Ketones Negative (NEGATIVE) Urine Occult Blood Negative (NEGATIVE) Urine Nitrite Negative (NEGATIVE) Urine Bilirubin Negative (NEGATIVE) Urine Urobilinogen Normal MG/DL (0.0-1.0) Urine Leukocyte Esterase 1+ (NEGATIVE) H Urine RBC 0 /HPF (0 - 0) Urine WBC 2-4 /HPF (0 - 0) Urine Squamous Epithelial Cells None /LPF (NONE/OCC) Urine Bacteria Few /HPF (NONE) Urine Yeast Few /HPF (NONE) H Sodium Level 140 MMOL/L (136-145) Potassium Level 3.1 MMOL/L (3.5-5.1) L Chloride Level 105 MMOL/L (98-107) Carbon Dioxide Level 24 MMOL/L (21-32) Anion Gap 11 mmol/L (5-15) Blood Urea Nitrogen 11 mg/dL (7-18) Creatinine 0.4 MG/DL (0.55-1.30) L Estimat Glomerular Filtration Rate > 60 mL/min (>60) Glucose Level 130 MG/DL (74-106) H Calcium Level 9.0 MG/DL (8.5-10.1) Total Bilirubin 0.6 MG/DL (0.2-1.0) Aspartate Amino Transf (AST/SGOT) 11 U/L (15-37) L Alanine Aminotransferase (ALT/SGPT) 32 U/L (12-78) Alkaline Phosphatase 77 U/L (46-116) Total Protein 8.4 G/DL (6.4-8.2) H Albumin 3.2 G/DL (3.4-5.0) L Globulin 5.2 g/dL Albumin/Globulin Ratio 0.6 (1.0-2.7) L Vancomycin Level Trough 12.1 ug/mL (5.0-12.0) H Current Medications Medications (Trade) Dose Ordered Sig/Markel Route PRN Reason Start Time Stop Time Status Last Admin Dose Admin Acetaminophen (Tylenol) 650 mg Q4H PRN ORAL Prn mild pain/Temp > 101 04/09/18 07:00 05/09/18 06:59 04/10/18 22:48 Acetylcysteine (Mucomyst) 100 mg Q6HRT HHN 04/12/18 13:00 05/09/18 09:59 04/21/18 07:03 Al Hydroxide/Mg Hydroxide (Mylanta) 30 ml Q4H PRN GT Abdominal cramps 04/09/18 07:00 05/09/18 06:59 Albuterol/ Ipratropium (Albuterol/ Ipratropium) 3 ml Q6HRT HHN 04/20/18 13:00 04/25/18 12:59 04/21/18 07:03 Baclofen (Lioresal) 10 mg THREE TIMES A DAY ORAL 04/09/18 09:00 05/09/18 08:59 04/21/18 09:01 Chlorhexidine Gluconate (Yuridia-Hex 2%) 1 applic DAILY@2000 TOPIC 04/12/18 20:00 05/12/18 19:59 04/20/18 20:18 Dextrose (Dextrose 50%) 25 ml STAT PRN IV Hypoglycemia 04/09/18 07:00 05/09/18 06:59 Dextrose (Dextrose 50%) 50 ml STAT PRN IV Hypoglycemia 04/09/18 07:00 05/09/18 06:59 Diphenhydramine HCl (Benadryl Cream) 1 applic THREE TIMES A DAY PRN TOPIC Itching 04/20/18 21:45 05/20/18 21:44 04/20/18 22:04 Diphenhydramine HCl (Benadryl) 25 mg Q6H PRN IVP Itching 04/11/18 11:00 05/11/18 10:59 04/17/18 01:19 Hydromorphone HCl (Dilaudid) 4 mg Q4H PRN GT Severe Pain (Pain Scale 7-10) 04/18/18 07:45 04/25/18 07:44 04/20/18 22:03 Magnesium Hydroxide (Mom) 30 ml HSPRN PRN ORAL Constipation 04/09/18 07:00 05/09/18 06:59 Metronidazole (Flagyl) 500 mg Q8HR ORAL 04/19/18 14:00 04/26/18 13:59 04/21/18 05:56 Mineral Oil (Fleet's Mineral Oil Enema) 133 ml DAILYPRN PRN RECTAL Constipation 04/10/18 06:45 05/10/18 06:44 Morphine Sulfate (Morphine Sulfate) 4 mg Q4H PRN IVP Severe Breakthru Pain (>7) 04/17/18 16:30 04/24/18 16:29 04/18/18 00:28 Pantoprazole (Protonix) 40 mg DAILY IVP 04/09/18 09:00 05/09/18 08:59 04/21/18 09:01 Piperacillin Sod/ Tazobactam Sod 3.375 gm/Dextrose 110 ml @ 27.5 mls/hr EVERY 8 HOURS IVPB 04/19/18 15:00 04/24/18 14:59 04/21/18 05:56 Vancomycin HCl (Vanco rx to dose) 1 ea DAILY PRN MISC Per rx protocol 04/19/18 12:15 05/19/18 12:14 Vancomycin/Sodium Chloride 250 ml @ 166.667 mls/hr Q12HR@0000,1200 IVPB 04/20/18 00:00 04/25/18 00:00 04/21/18 12:04 Venlafaxine HCl (Effexor) 25 mg Q12HR GT 04/09/18 21:00 05/09/18 08:59 04/21/18 09:01 Zolpidem Tartrate (Ambien) 5 mg HSPRN PRN ORAL Insomnia 04/16/18 21:45 04/23/18 21:44 04/21/18 02:05 Zolpidem Tartrate (Ambien) 10 mg HSPRN PRN ORAL Insomnia 04/16/18 21:45 04/23/18 21:44 04/20/18 22:03 Richard Lerma MD April 21, 2018 12:11
[2018-04-21] MEDS ORDERED: Heparin 2000 units/Ns 1000ml INJ ONE (12:45)
[2018-04-21] MEDS ORDERED: Lidocaine 1% Plain 30 ml INJ ONE (12:45)
--- NOTE | 2018-04-21 13:04 | General Progress Note ---
Assessment/Plan Problem List: (1) Abdominal pain ICD Codes: R10.9 - Unspecified abdominal pain SNOMED: 76533972 Qualifiers: Qualified Codes: R10.13 - Epigastric pain (2) UGIB (upper gastrointestinal bleed) ICD Codes: K92.2 - Gastrointestinal hemorrhage, unspecified SNOMED: 73972270 (3) Tracheostomy dependent ICD Codes: Z93.0 - Tracheostomy status SNOMED: 954939783, 894229036 (4) ALS (amyotrophic lateral sclerosis) ICD Codes: G12.21 - Amyotrophic lateral sclerosis SNOMED: 98713954 Assessment/Plan had a long D/W the family patient currently on vanco and Zosyn IV still elevated WBC plan to D/W ID regarding tampering ABX repeat abd us colace Subjective ROS Limited/Unobtainable: Yes Allergies: Coded Allergies: No Known Allergies (Unverified , 04/08/18) Subjective no abd pain no BM for 2 days Objective Last 24 Hour Vital Signs Date Time Temp Pulse Resp B/P (MAP) Pulse Ox O2 Delivery O2 Flow Rate FiO2 04/21/18 12:00 58 04/21/18 12:00 98.3 65 20 144/81 98 Mechanical Ventilator 21 98.3 04/21/18 12:00 21 04/21/18 10:56 71 14 21 04/21/18 08:54 79 14 21 04/21/18 08:00 93 04/21/18 08:00 21 04/21/18 07:28 84 15 99 Mechanical Ventilator 21 04/21/18 07:08 77 14 21 04/21/18 07:03 77 14 97 Mechanical Ventilator 21 04/21/18 05:29 72 14 21 04/21/18 04:00 21 04/21/18 04:00 72 04/21/18 04:00 63 04/21/18 02:47 80 14 21 04/21/18 00:49 94 14 95 Mechanical Ventilator 21 04/21/18 00:39 87 14 21 04/21/18 00:39 87 14 97 Mechanical Ventilator 21 04/21/18 00:00 99.0 89 14 124/74 99 Mechanical Ventilator 21 99.0 04/21/18 00:00 21 04/20/18 23:58 63 04/20/18 23:15 95 14 21 04/20/18 22:03 99.5 04/20/18 22:00 99.5 04/20/18 20:55 89 14 21 04/20/18 20:00 21 04/20/18 20:00 98.7 81 14 91/55 99 Mechanical Ventilator 21 98.7 04/20/18 20:00 76 04/20/18 19:26 94 15 95 Mechanical Ventilator 21 04/20/18 19:16 101 14 21 04/20/18 19:16 101 14 98 Mechanical Ventilator 21 04/20/18 16:32 89 15 21 04/20/18 16:27 91 04/20/18 16:00 99.5 72 16 108/58 98 Mechanical Ventilator 21 99.5 04/20/18 16:00 21 04/20/18 14:53 85 14 21 04/20/18 13:53 86 14 99 Mechanical Ventilator 21 04/20/18 13:40 83 14 99 Mechanical Ventilator 21 04/20/18 13:30 81 14 21 Intake and Output 04/20/18 04/21/18 19:00 07:00 Intake Total 590.000 ml 562.500 ml Output Total 300 ml 300 ml Balance 290.000 ml 262.500 ml Intake Free Water 120 ml 50 ml IV Total 470.000 ml 387.500 ml Tube Feeding 125 ml Output Urine Total 300 ml 300 ml # Voids 1 1 Laboratory Tests 04/20/18 23:30: White Blood Count 12.1H, Red Blood Count 3.30L, Hemoglobin 10.5L, Hematocrit 30.4L, Mean Corpuscular Volume 92, Mean Corpuscular Hemoglobin 31.9H, Mean Corpuscular Hemoglobin Concent 34.6, Red Cell Distribution Width 12.4, Platelet Count 385, Mean Platelet Volume 6.6, Neutrophils (%) (Auto) 76.9H, Lymphocytes ( %) (Auto) 9.6L, Monocytes (%) (Auto) 9.1, Eosinophils (%) (Auto) 3.1H, Basophils (%) (Auto) 1.3, Urine Color Yellow, Urine Appearance Clear, Urine pH 7 , Urine Specific [place] 1.005, Urine Protein Negative, Urine Glucose (UA) Negative, Urine Ketones Negative, Urine Occult Blood Negative, Urine Nitrite Negative, Urine Bilirubin Negative, Urine Urobilinogen Normal, Urine Leukocyte Esterase 1+H, Urine RBC 0, Urine WBC 2-4, Urine Squamous Epithelial Cells None, Urine Bacteria Few, Urine Yeast FewH, Sodium Level 140, Potassium Level 3.1L, Chloride Level 105, Carbon Dioxide Level 24, Anion Gap 11, Blood Urea Nitrogen 11, Creatinine 0.4L, Estimat Glomerular Filtration Rate > 60, Glucose Level 130H , Calcium Level 9.0, Total Bilirubin 0.6, Aspartate Amino Transf (AST/SGOT) 11L , Alanine Aminotransferase (ALT/SGPT) 32, Alkaline Phosphatase 77, Total Protein 8.4H, Albumin 3.2L, Globulin 5.2, Albumin/Globulin Ratio 0.6L, Vancomycin Level Trough 12.1H Height (Feet): 5 Height (Inches): 8.00 Weight (Pounds): 121 General Appearance: alert EENT: normal ENT inspection Neck: supple Cardiovascular: normal rate Respiratory/Chest: decreased breath sounds Abdomen: normal bowel sounds, non tender, soft Extremities: non-tender Niraj Avalos MD April 21, 2018 13:04
[2018-04-21] MEDS ORDERED: ENEMEEZ RECTAL ONE (15:00)
--- NOTE | 2018-04-21 15:19 | Diagnostic Imaging Report ---
Indication: termite technician venous access Findings: After the indications, procedure, risks, complications, and alternatives of the procedure were explained, written informed consent was obtained. The left upper extremity was prepped with alcohol. All elements of maximal sterile barrier technique were followed including usage of a cap, mask, sterile gown, sterile gloves, hand hygiene and a large sterile sheet. Sonographic evaluation of the upper extremity was performed demonstrating a patent and compressible basilic vein. Access was obtained under real-time ultrasound guidance (with utilization of sterile gel and sterile probe cover) and digital image was saved and archived. An .018 wire was introduced. Needle exchanged for a 5 Italian peel-away sheath. Measurements were obtained. A 5 Italian dual-lumen Power PICC line catheter was cut to 40 cm and introduced over the wire. Peel-away sheath and wire were removed.Catheter was secured to the skin using 2-0 Prolene suture. Both ports aspirate and flush easily. Post procedure chest x-ray demonstrates good position of the PICC line catheter within the left innominate vein/SVC junction. Impression: Successful placement of an upper extremity PICC line catheter
--- NOTE | 2018-04-21 15:21 | General Surgery Progress Note ---
General Surgery-Progress Note Subjective Procedure Performed change of tracheostomy tube Additional Comments no acute events. leukocytosis. comfortable. trach clean. pain stable. Objective Last 24 Hour Vital Signs Date Time Temp Pulse Resp B/P (MAP) Pulse Ox O2 Delivery O2 Flow Rate FiO2 04/21/18 15:17 59 14 21 04/21/18 13:25 89 14 97 Mechanical Ventilator 21 04/21/18 13:15 86 18 21 04/21/18 13:15 86 18 98 Mechanical Ventilator 21 04/21/18 12:00 58 04/21/18 12:00 98.3 65 20 144/81 98 Mechanical Ventilator 21 98.3 04/21/18 12:00 21 04/21/18 10:56 71 14 21 04/21/18 08:54 79 14 21 04/21/18 08:00 93 04/21/18 08:00 21 04/21/18 07:28 84 15 99 Mechanical Ventilator 21 04/21/18 07:08 77 14 21 04/21/18 07:03 77 14 97 Mechanical Ventilator 21 04/21/18 05:29 72 14 21 04/21/18 04:00 21 04/21/18 04:00 72 04/21/18 04:00 63 04/21/18 02:47 80 14 21 04/21/18 00:49 94 14 95 Mechanical Ventilator 21 04/21/18 00:39 87 14 21 04/21/18 00:39 87 14 97 Mechanical Ventilator 21 04/21/18 00:00 99.0 89 14 124/74 99 Mechanical Ventilator 21 99.0 04/21/18 00:00 21 04/20/18 23:58 63 04/20/18 23:15 95 14 21 04/20/18 22:03 99.5 04/20/18 22:00 99.5 04/20/18 20:55 89 14 21 04/20/18 20:00 21 04/20/18 20:00 98.7 81 14 91/55 99 Mechanical Ventilator 21 98.7 04/20/18 20:00 76 04/20/18 19:26 94 15 95 Mechanical Ventilator 21 04/20/18 19:16 101 14 21 04/20/18 19:16 101 14 98 Mechanical Ventilator 21 04/20/18 16:32 89 15 21 04/20/18 16:27 91 04/20/18 16:00 99.5 72 16 108/58 98 Mechanical Ventilator 21 99.5 04/20/18 16:00 21 I&O Intake and Output 04/20/18 04/21/18 19:00 07:00 Intake Total 590.000 ml 562.500 ml Output Total 300 ml 300 ml Balance 290.000 ml 262.500 ml Intake Free Water 120 ml 50 ml IV Total 470.000 ml 387.500 ml Tube Feeding 125 ml Output Urine Total 300 ml 300 ml # Voids 1 1 Drains: none Cardiovascular: RSR Respiratory: clear Abdomen: soft, flat, present bowel sounds Extremities: no cyanosis Laboratory Tests Test 04/20/18 23:30 White Blood Count 12.1 K/UL (4.8-10.8) H Red Blood Count 3.30 M/UL (4.70-6.10) L Hemoglobin 10.5 G/DL (14.2-18.0) L Hematocrit 30.4 % (42.0-52.0) L Mean Corpuscular Volume 92 FL (80-99) Mean Corpuscular Hemoglobin 31.9 PG (27.0-31.0) H Mean Corpuscular Hemoglobin Concent 34.6 G/DL (32.0-36.0) Red Cell Distribution Width 12.4 % (11.6-14.8) Platelet Count 385 K/UL (150-450) Mean Platelet Volume 6.6 FL (6.5-10.1) Neutrophils (%) (Auto) 76.9 % (45.0-75.0) H Lymphocytes (%) (Auto) 9.6 % (20.0-45.0) L Monocytes (%) (Auto) 9.1 % (1.0-10.0) Eosinophils (%) (Auto) 3.1 % (0.0-3.0) H Basophils (%) (Auto) 1.3 % (0.0-2.0) Urine Color Yellow Urine Appearance Clear Urine pH 7 (4.5-8.0) Urine Specific [place] 1.005 (1.005-1.035) Urine Protein Negative (NEGATIVE) Urine Glucose (UA) Negative (NEGATIVE) Urine Ketones Negative (NEGATIVE) Urine Occult Blood Negative (NEGATIVE) Urine Nitrite Negative (NEGATIVE) Urine Bilirubin Negative (NEGATIVE) Urine Urobilinogen Normal MG/DL (0.0-1.0) Urine Leukocyte Esterase 1+ (NEGATIVE) H Urine RBC 0 /HPF (0 - 0) Urine WBC 2-4 /HPF (0 - 0) Urine Squamous Epithelial Cells None /LPF (NONE/OCC) Urine Bacteria Few /HPF (NONE) Urine Yeast Few /HPF (NONE) H Sodium Level 140 MMOL/L (136-145) Potassium Level 3.1 MMOL/L (3.5-5.1) L Chloride Level 105 MMOL/L (98-107) Carbon Dioxide Level 24 MMOL/L (21-32) Anion Gap 11 mmol/L (5-15) Blood Urea Nitrogen 11 mg/dL (7-18) Creatinine 0.4 MG/DL (0.55-1.30) L Estimat Glomerular Filtration Rate > 60 mL/min (>60) Glucose Level 130 MG/DL (74-106) H Calcium Level 9.0 MG/DL (8.5-10.1) Total Bilirubin 0.6 MG/DL (0.2-1.0) Aspartate Amino Transf (AST/SGOT) 11 U/L (15-37) L Alanine Aminotransferase (ALT/SGPT) 32 U/L (12-78) Alkaline Phosphatase 77 U/L (46-116) Total Protein 8.4 G/DL (6.4-8.2) H Albumin 3.2 G/DL (3.4-5.0) L Globulin 5.2 g/dL Albumin/Globulin Ratio 0.6 (1.0-2.7) L Vancomycin Level Trough 12.1 ug/mL (5.0-12.0) H Assessment Post-op Diagnosis trach vent dependant Plan Problems: (1) Abdominal pain Assessment & Plan: epigastric abdominal pain. states 10/10 at max. intermittent without radiation. pain on palpation of epigastric region during exam. ultrasound and CT reviewed. no signs of acute cholecystitis. does have sludge and stones. rectosigmoid thickening on CT possible colitis. does not seem to have colitis and CT findings not very specific. gallbladder with stones and sludge but no inflammation. no pancreatitis. EGD with distal gastritis trach changed without difficulty. stable since. abdominal pain etiology possibly due to gastritis? no acute surgical intervention currently planned. thank you for this consultation. will follow with recs. Bry Fish April 21, 2018 15:21
[2018-04-21 16:00] VITALS: BP 123/67
[2018-04-21] MEDS: Docusate 100mg cap ORAL SCH (18:01)
[2018-04-21] MEDS: Morphine Sulfate 4mg/ml Inj IVP PRN ×2 (18:02→22:24)
[2018-04-21] MEDS: Dyna-Hex 2% Top Sol 2oz TOPIC SCH (19:34)
[2018-04-22] VITALS (11 sets, daily range): BP systolic 118–170; BP diastolic 65–87
[2018-04-22] MEDS: Vancomycin 750mg/NS 250ml IVPB SCH ×3 (00:04→23:10)
[2018-04-22] MEDS: Albuterol/Ipratropium 3ml neb HHN SCH ×4 (00:48→20:29)
[2018-04-22] MEDS: Zolpidem 5mg tab ORAL PRN ×2 (01:25→22:37)
[2018-04-22] MEDS: HYDROmorphone 4mg tab GT PRN (01:31)
[2018-04-22 05:02] LABS: BASOPHILS % (AUTO) 1.2 % (0.0-2.0); EOSINOPHILS % (AUTO) 3.2 % (0.0-3.0); HEMATOCRIT 27.5 % (42.0-52.0); HEMOGLOBIN 9.3 G/DL (14.2-18.0); LYMPHOCYTES % (AUTO) 14.2 % (20.0-45.0); MEAN CORPUSCULAR VOLUME 93 FL (80-99); MONOCYTES % (AUTO) 8.5 % (1.0-10.0); NEUTROPHILS % (AUTO) 72.9 % (45.0-75.0); PLATELET COUNT 319 K/UL (150-450); RED BLOOD COUNT 2.95 M/UL (4.70-6.10); RED CELL DISTRIBUTION WIDTH 12.7 % (11.6-14.8); WHITE BLOOD COUNT 11.9 K/UL (4.8-10.8)
[2018-04-22 05:06] LABS: ALANINE AMINOTRANSFERASE 24 U/L (12-78); ALBUMIN 2.9 G/DL (3.4-5.0); ALBUMIN/GLOBULIN RATIO 0.6 (1.0-2.7); ALKALINE PHOSPHATASE 59 U/L (46-116); ANION GAP 10 mmol/L (5-15); ASPARTATE AMINO TRANSFERASE 13 U/L (15-37); BILIRUBIN,TOTAL 0.5 MG/DL (0.2-1.0); BLOOD UREA NITROGEN 8 mg/dL (7-18); CALCIUM 8.5 MG/DL (8.5-10.1); CARBON DIOXIDE 24 MMOL/L (21-32); CHLORIDE 108 MMOL/L (98-107); CREATININE 0.4 MG/DL (0.55-1.30); POTASSIUM 2.9 MMOL/L (3.5-5.1); SODIUM 142 MMOL/L (136-145)
[2018-04-22] MEDS: metroNIDAZOLE 500mg tab ORAL SCH ×3 (06:02→23:04)
[2018-04-22] MEDS: Piperacillin/Tazobactam 3.375 GM in D5W 110 ML IVPB SCH ×3 (06:03→23:04)
--- NOTE | 2018-04-22 07:31 | General Progress Note ---
Assessment/Plan Problem List: (1) Abdominal pain ICD Codes: R10.9 - Unspecified abdominal pain SNOMED: 89471320 Qualifiers: Qualified Codes: R10.13 - Epigastric pain (2) UGIB (upper gastrointestinal bleed) ICD Codes: K92.2 - Gastrointestinal hemorrhage, unspecified SNOMED: 69519422 (3) Tracheostomy dependent ICD Codes: Z93.0 - Tracheostomy status SNOMED: 618788893, 264430300 (4) ALS (amyotrophic lateral sclerosis) ICD Codes: G12.21 - Amyotrophic lateral sclerosis SNOMED: 65378720 Assessment/Plan s/p trach change yesterday s/p PICC line placement patient currently on vanco and Zosyn IV still elevated WBC plan to D/W ID regarding abx management before possible discharge repeat abd us colace fu labs Subjective ROS Limited/Unobtainable: No Allergies: Coded Allergies: No Known Allergies (Unverified , 04/08/18) Subjective no event Objective Last 24 Hour Vital Signs Date Time Temp Pulse Resp B/P (MAP) Pulse Ox O2 Delivery O2 Flow Rate FiO2 04/22/18 06:55 62 14 97 Mechanical Ventilator 21 04/22/18 06:40 54 14 21 04/22/18 06:40 54 14 98 Mechanical Ventilator 21 04/22/18 04:30 65 17 21 04/22/18 04:00 58 04/22/18 04:00 21 04/22/18 02:30 87 15 21 04/22/18 00:58 87 14 97 Mechanical Ventilator 21 04/22/18 00:48 102 16 96 Mechanical Ventilator 21 04/22/18 00:43 102 16 21 04/22/18 00:00 89 04/22/18 00:00 98.7 82 20 129/78 99 Mechanical Ventilator 21 98.7 04/21/18 23:00 87 15 21 04/21/18 20:33 65 17 21 04/21/18 20:00 61 04/21/18 20:00 21 04/21/18 19:12 65 16 98 Mechanical Ventilator 21 04/21/18 18:52 62 15 94 Mechanical Ventilator 21 04/21/18 18:48 62 15 21 04/21/18 17:44 65 15 21 04/21/18 16:00 69 04/21/18 16:00 21 04/21/18 16:00 98.7 65 19 123/67 98 Mechanical Ventilator 21 98.7 04/21/18 15:17 59 14 21 04/21/18 13:25 89 14 97 Mechanical Ventilator 21 04/21/18 13:15 86 18 21 04/21/18 13:15 86 18 98 Mechanical Ventilator 21 04/21/18 12:00 58 04/21/18 12:00 98.3 65 20 144/81 98 Mechanical Ventilator 21 98.3 04/21/18 12:00 21 04/21/18 10:56 71 14 21 04/21/18 08:54 79 14 21 04/21/18 08:00 93 04/21/18 08:00 21 Intake and Output 04/21/18 04/22/18 19:00 07:00 Intake Total 967.500 ml 424.167 ml Output Total 640 ml 550 ml Balance 327.500 ml -125.833 ml Intake Free Water 150 ml 50 ml IV Total 442.500 ml 249.167 ml Tube Feeding 375 ml 125 ml Output Urine Total 640 ml 550 ml # Voids 2 Laboratory Tests 04/22/18 04:00: White Blood Count 11.9H, Red Blood Count 2.95L, Hemoglobin 9.3L, Hematocrit 27.5L, Mean Corpuscular Volume 93, Mean Corpuscular Hemoglobin 31.6H, Mean Corpuscular Hemoglobin Concent 33.9, Red Cell Distribution Width 12.7, Platelet Count 319, Mean Platelet Volume 6.8, Neutrophils (%) (Auto) 72.9, Lymphocytes (% ) (Auto) 14.2L, Monocytes (%) (Auto) 8.5, Eosinophils (%) (Auto) 3.2H, Basophils (%) (Auto) 1.2, Sodium Level 142, Potassium Level 2.9L, Chloride Level 108H, Carbon Dioxide Level 24, Anion Gap 10, Blood Urea Nitrogen 8, Creatinine 0.4L, Estimat Glomerular Filtration Rate > 60, Glucose Level 148H, Calcium Level 8.5, Total Bilirubin 0.5, Aspartate Amino Transf (AST/SGOT) 13L, Alanine Aminotransferase (ALT/SGPT) 24, Alkaline Phosphatase 59, Total Protein 7.4, Albumin 2.9L, Globulin 4.5, Albumin/Globulin Ratio 0.6L Height (Feet): 5 Height (Inches): 8.00 Weight (Pounds): 121 General Appearance: no apparent distress EENT: normal ENT inspection Neck: supple Cardiovascular: normal rate Respiratory/Chest: decreased breath sounds Abdomen: normal bowel sounds, non tender, soft Extremities: non-tender Niraj Avalos MD Apr 22, 2018 07:31
--- NOTE | 2018-04-22 08:17 | General Progress Note ---
Assessment/Plan Assessment/Plan IMPRESSION gastritis trach gallstones anemia possible cholecystitis ALS leukocytosis staph bacteremia ?cystic duct obstruction PLAN ID eval and antibiotics noted GI follow up and recommendations vent; pain control maintain meds feeds per gi appears comfortable awaiting clearance Subjective ROS Limited/Unobtainable: Yes Allergies: Coded Allergies: No Known Allergies (Unverified , 04/08/18) Subjective cultures noted Objective Last 24 Hour Vital Signs Date Time Temp Pulse Resp B/P (MAP) Pulse Ox O2 Delivery O2 Flow Rate FiO2 04/22/18 06:55 62 14 97 Mechanical Ventilator 21 04/22/18 06:40 54 14 21 04/22/18 06:40 54 14 98 Mechanical Ventilator 21 04/22/18 04:30 65 17 21 04/22/18 04:00 58 04/22/18 04:00 21 04/22/18 02:30 87 15 21 04/22/18 00:58 87 14 97 Mechanical Ventilator 21 04/22/18 00:48 102 16 96 Mechanical Ventilator 21 04/22/18 00:43 102 16 21 04/22/18 00:00 89 04/22/18 00:00 98.7 82 20 129/78 99 Mechanical Ventilator 21 98.7 04/21/18 23:00 87 15 21 04/21/18 20:33 65 17 21 04/21/18 20:00 61 04/21/18 20:00 21 04/21/18 19:12 65 16 98 Mechanical Ventilator 21 04/21/18 18:52 62 15 94 Mechanical Ventilator 21 04/21/18 18:48 62 15 21 04/21/18 17:44 65 15 21 04/21/18 16:00 69 04/21/18 16:00 21 04/21/18 16:00 98.7 65 19 123/67 98 Mechanical Ventilator 21 98.7 04/21/18 15:17 59 14 21 04/21/18 13:25 89 14 97 Mechanical Ventilator 21 04/21/18 13:15 86 18 21 04/21/18 13:15 86 18 98 Mechanical Ventilator 21 04/21/18 12:00 58 04/21/18 12:00 98.3 65 20 144/81 98 Mechanical Ventilator 21 98.3 04/21/18 12:00 21 04/21/18 10:56 71 14 21 04/21/18 08:54 79 14 21 Intake and Output 04/21/18 04/22/18 19:00 07:00 Intake Total 967.500 ml 424.167 ml Output Total 640 ml 550 ml Balance 327.500 ml -125.833 ml Intake Free Water 150 ml 50 ml IV Total 442.500 ml 249.167 ml Tube Feeding 375 ml 125 ml Output Urine Total 640 ml 550 ml # Voids 2 Laboratory Tests 04/22/18 04:00: White Blood Count 11.9H, Red Blood Count 2.95L, Hemoglobin 9.3L, Hematocrit 27.5L, Mean Corpuscular Volume 93, Mean Corpuscular Hemoglobin 31.6H, Mean Corpuscular Hemoglobin Concent 33.9, Red Cell Distribution Width 12.7, Platelet Count 319, Mean Platelet Volume 6.8, Neutrophils (%) (Auto) 72.9, Lymphocytes (% ) (Auto) 14.2L, Monocytes (%) (Auto) 8.5, Eosinophils (%) (Auto) 3.2H, Basophils (%) (Auto) 1.2, Sodium Level 142, Potassium Level 2.9L, Chloride Level 108H, Carbon Dioxide Level 24, Anion Gap 10, Blood Urea Nitrogen 8, Creatinine 0.4L, Estimat Glomerular Filtration Rate > 60, Glucose Level 148H, Calcium Level 8.5, Total Bilirubin 0.5, Aspartate Amino Transf (AST/SGOT) 13L, Alanine Aminotransferase (ALT/SGPT) 24, Alkaline Phosphatase 59, Total Protein 7.4, Albumin 2.9L, Globulin 4.5, Albumin/Globulin Ratio 0.6L Height (Feet): 5 Height (Inches): 8.00 Weight (Pounds): 121 Objective WDWN NAD clear breath sounds bilaterally without rhonchi or wheeze [id number] without MRG NABS GT in place no CCE quad trach Bob Cassidy MD Apr 22, 2018 08:17
[2018-04-22] MEDS: Pantoprazole Inj IVP SCH (09:15)
[2018-04-22] MEDS: Docusate 100mg cap ORAL SCH (09:15)
[2018-04-22] MEDS: Venlafaxine 25mg tab GT SCH ×2 (09:15→21:00)
[2018-04-22] MEDS: Morphine Sulfate 4mg/ml Inj IVP PRN ×2 (11:12→20:19)
--- NOTE | 2018-04-22 11:19 | Infectious Diseases Prog Note ---
Assessment/Plan Assessment/Plan antibiotics : vancomycin iv, zosyn, flagyl A 1. colitis 2. ? cholecystitis 3. leucocytosis improving 4. ALS 5. respiratory failure 6. staph aureus pneumonia 7. + blood cultures with coag neg staph likely contaminated P 1. continue vancomycin iv, zosyn, flagyl 2. will follow up cultures Subjective ROS Limited/Unobtainable: Yes Allergies: Coded Allergies: No Known Allergies (Unverified , 04/08/18) Objective Vital Signs Last 24 Hour Vital Signs Date Time Temp Pulse Resp B/P (MAP) Pulse Ox O2 Delivery O2 Flow Rate FiO2 04/22/18 10:57 74 15 21 04/22/18 09:25 64 15 21 04/22/18 08:00 97.8 62 14 118/65 99 Mechanical Ventilator 21 97.8 04/22/18 08:00 21 04/22/18 07:47 57 04/22/18 06:55 62 14 97 Mechanical Ventilator 21 04/22/18 06:40 54 14 21 04/22/18 06:40 54 14 98 Mechanical Ventilator 21 04/22/18 04:30 65 17 21 04/22/18 04:00 58 04/22/18 04:00 21 04/22/18 02:30 87 15 21 04/22/18 00:58 87 14 97 Mechanical Ventilator 21 04/22/18 00:48 102 16 96 Mechanical Ventilator 21 04/22/18 00:43 102 16 21 04/22/18 00:00 89 04/22/18 00:00 98.7 82 20 129/78 99 Mechanical Ventilator 21 98.7 04/21/18 23:00 87 15 21 04/21/18 20:33 65 17 21 04/21/18 20:00 61 04/21/18 20:00 21 04/21/18 19:12 65 16 98 Mechanical Ventilator 21 04/21/18 18:52 62 15 94 Mechanical Ventilator 21 04/21/18 18:48 62 15 21 04/21/18 17:44 65 15 21 04/21/18 16:00 69 04/21/18 16:00 21 04/21/18 16:00 98.7 65 19 123/67 98 Mechanical Ventilator 21 98.7 04/21/18 15:17 59 14 21 04/21/18 13:25 89 14 97 Mechanical Ventilator 21 04/21/18 13:15 86 18 21 04/21/18 13:15 86 18 98 Mechanical Ventilator 21 04/21/18 12:00 58 04/21/18 12:00 98.3 65 20 144/81 98 Mechanical Ventilator 21 98.3 04/21/18 12:00 21 Height (Feet): 5 Height (Inches): 8.00 Weight (Pounds): 121 HEENT: status post trach Respiratory/Chest: lungs clear Cardiovascular: normal rate, regular rhythm, no gallop/murmur Abdomen: soft, non tender, other - GT Extremities: no edema Microbiology Date/Time Source Procedure Growth Status 04/19/18 12:30 Blood Blood Culture - Final Staphylococcus Sp Coag Neg Complete 04/19/18 12:30 Blood Blood Culture - Final Staphylococcus Sp Coag Neg Complete 04/19/18 11:30 Sputum Gram Stain - Final Resulted 04/19/18 11:30 Sputum Culture - Preliminary Staphylococcus Aureus Usual Respiratory Cassandra Resulted 04/20/18 23:30 Urine,Clean Catch Urine Culture - Preliminary NO GROWTH Resulted 04/19/18 13:30 Urine,Clean Catch Urine Culture - Final Mixed Gram Positive Organism Complete Laboratory Tests Test 04/22/18 04:00 White Blood Count 11.9 K/UL (4.8-10.8) H Red Blood Count 2.95 M/UL (4.70-6.10) L Hemoglobin 9.3 G/DL (14.2-18.0) L Hematocrit 27.5 % (42.0-52.0) L Mean Corpuscular Volume 93 FL (80-99) Mean Corpuscular Hemoglobin 31.6 PG (27.0-31.0) H Mean Corpuscular Hemoglobin Concent 33.9 G/DL (32.0-36.0) Red Cell Distribution Width 12.7 % (11.6-14.8) Platelet Count 319 K/UL (150-450) Mean Platelet Volume 6.8 FL (6.5-10.1) Neutrophils (%) (Auto) 72.9 % (45.0-75.0) Lymphocytes (%) (Auto) 14.2 % (20.0-45.0) L Monocytes (%) (Auto) 8.5 % (1.0-10.0) Eosinophils (%) (Auto) 3.2 % (0.0-3.0) H Basophils (%) (Auto) 1.2 % (0.0-2.0) Sodium Level 142 MMOL/L (136-145) Potassium Level 2.9 MMOL/L (3.5-5.1) L Chloride Level 108 MMOL/L (98-107) H Carbon Dioxide Level 24 MMOL/L (21-32) Anion Gap 10 mmol/L (5-15) Blood Urea Nitrogen 8 mg/dL (7-18) Creatinine 0.4 MG/DL (0.55-1.30) L Estimat Glomerular Filtration Rate > 60 mL/min (>60) Glucose Level 148 MG/DL (74-106) H Calcium Level 8.5 MG/DL (8.5-10.1) Total Bilirubin 0.5 MG/DL (0.2-1.0) Aspartate Amino Transf (AST/SGOT) 13 U/L (15-37) L Alanine Aminotransferase (ALT/SGPT) 24 U/L (12-78) Alkaline Phosphatase 59 U/L (46-116) Total Protein 7.4 G/DL (6.4-8.2) Albumin 2.9 G/DL (3.4-5.0) L Globulin 4.5 g/dL Albumin/Globulin Ratio 0.6 (1.0-2.7) L Current Medications Medications (Trade) Dose Ordered Sig/Markel Route PRN Reason Start Time Stop Time Status Last Admin Dose Admin Acetaminophen (Tylenol) 650 mg Q4H PRN ORAL Prn mild pain/Temp > 101 04/09/18 07:00 05/09/18 06:59 04/10/18 22:48 Acetylcysteine (Mucomyst) 100 mg Q6HRT N 04/12/18 13:00 05/09/18 09:59 04/22/18 07:11 Al Hydroxide/Mg Hydroxide (Mylanta) 30 ml Q4H PRN GT Abdominal cramps 04/09/18 07:00 05/09/18 06:59 Albuterol/ Ipratropium (Albuterol/ Ipratropium) 3 ml Q6HRT N 04/20/18 13:00 04/25/18 12:59 04/22/18 07:11 Baclofen (Lioresal) 10 mg THREE TIMES A DAY ORAL 04/09/18 09:00 05/09/18 08:59 04/22/18 09:15 Chlorhexidine Gluconate (Yuridia-Hex 2%) 1 applic DAILY@2000 TOPIC 04/21/18 20:00 05/21/18 19:59 04/21/18 19:34 Dextrose (Dextrose 50%) 25 ml STAT PRN IV Hypoglycemia 04/09/18 07:00 05/09/18 06:59 Dextrose (Dextrose 50%) 50 ml STAT PRN IV Hypoglycemia 04/09/18 07:00 05/09/18 06:59 Diphenhydramine HCl (Benadryl Cream) 1 applic THREE TIMES A DAY PRN TOPIC Itching 04/20/18 21:45 05/20/18 21:44 04/20/18 22:04 Diphenhydramine HCl (Benadryl) 25 mg Q6H PRN IVP Itching 04/11/18 11:00 05/11/18 10:59 04/17/18 01:19 Docusate Sodium (Colace) 100 mg TWICE A DAY ORAL 04/21/18 18:00 05/21/18 17:59 04/22/18 09:15 Hydromorphone HCl (Dilaudid) 4 mg Q4H PRN GT Severe Pain (Pain Scale 7-10) 04/18/18 07:45 04/25/18 07:44 04/22/18 01:31 Magnesium Hydroxide (Mom) 30 ml HSPRN PRN ORAL Constipation 04/09/18 07:00 05/09/18 06:59 Metronidazole (Flagyl) 500 mg Q8HR ORAL 04/19/18 14:00 04/26/18 13:59 04/22/18 06:02 Mineral Oil (Fleet's Mineral Oil Enema) 133 ml DAILYPRN PRN RECTAL Constipation 04/10/18 06:45 05/10/18 06:44 Morphine Sulfate (Morphine Sulfate) 4 mg Q4H PRN IVP Severe Breakthru Pain (>7) 04/17/18 16:30 04/24/18 16:29 04/21/18 22:24 Pantoprazole (Protonix) 40 mg DAILY IVP 04/09/18 09:00 05/09/18 08:59 04/22/18 09:15 Piperacillin Sod/ Tazobactam Sod 3.375 gm/Dextrose 110 ml @ 27.5 mls/hr EVERY 8 HOURS IVPB 04/19/18 15:00 04/24/18 14:59 04/22/18 06:03 Potassium Chloride (K-Dur) 40 meq Q4H NG 04/22/18 08:00 04/22/18 12:01 04/22/18 09:15 Vancomycin HCl (Vanco rx to dose) 1 ea DAILY PRN MISC Per rx protocol 04/19/18 12:15 05/19/18 12:14 Vancomycin/Sodium Chloride 250 ml @ 166.667 mls/hr Q12HR@0000,1200 IVPB 04/20/18 00:00 04/25/18 00:00 04/22/18 00:04 Venlafaxine HCl (Effexor) 25 mg Q12HR GT 04/09/18 21:00 05/09/18 08:59 04/22/18 09:15 Zolpidem Tartrate (Ambien) 5 mg HSPRN PRN ORAL Insomnia 04/16/18 21:45 04/23/18 21:44 04/22/18 01:25 Zolpidem Tartrate (Ambien) 10 mg HSPRN PRN ORAL Insomnia 04/16/18 21:45 04/23/18 21:44 04/21/18 22:02 TRINO CURIEL Apr 22, 2018 11:19
--- NOTE | 2018-04-22 12:18 | General Surgery Progress Note ---
General Surgery-Progress Note Subjective Procedure Performed change of tracheostomy tube Additional Comments HIDA positive. intermittent pain. persistent leukocytosis. Objective Last 24 Hour Vital Signs Date Time Temp Pulse Resp B/P (MAP) Pulse Ox O2 Delivery O2 Flow Rate FiO2 04/22/18 10:57 74 15 21 04/22/18 09:25 64 15 21 04/22/18 08:00 97.8 62 14 118/65 99 Mechanical Ventilator 21 97.8 04/22/18 08:00 21 04/22/18 07:47 57 04/22/18 06:55 62 14 97 Mechanical Ventilator 21 04/22/18 06:40 54 14 21 04/22/18 06:40 54 14 98 Mechanical Ventilator 21 04/22/18 04:30 65 17 21 04/22/18 04:00 58 04/22/18 04:00 21 04/22/18 02:30 87 15 21 04/22/18 00:58 87 14 97 Mechanical Ventilator 21 04/22/18 00:48 102 16 96 Mechanical Ventilator 21 04/22/18 00:43 102 16 21 04/22/18 00:00 89 04/22/18 00:00 98.7 82 20 129/78 99 Mechanical Ventilator 21 98.7 04/21/18 23:00 87 15 21 04/21/18 20:33 65 17 21 04/21/18 20:00 61 04/21/18 20:00 21 04/21/18 19:12 65 16 98 Mechanical Ventilator 21 04/21/18 18:52 62 15 94 Mechanical Ventilator 21 04/21/18 18:48 62 15 21 04/21/18 17:44 65 15 21 04/21/18 16:00 69 04/21/18 16:00 21 04/21/18 16:00 98.7 65 19 123/67 98 Mechanical Ventilator 21 98.7 04/21/18 15:17 59 14 21 04/21/18 13:25 89 14 97 Mechanical Ventilator 21 04/21/18 13:15 86 18 21 04/21/18 13:15 86 18 98 Mechanical Ventilator 21 I&O Intake and Output 04/21/18 04/22/18 19:00 07:00 Intake Total 967.500 ml 451.167 ml Output Total 640 ml 550 ml Balance 327.500 ml -98.833 ml Intake Free Water 150 ml 50 ml IV Total 442.500 ml 276.167 ml Tube Feeding 375 ml 125 ml Output Urine Total 640 ml 550 ml # Voids 2 Cardiovascular: RSR Respiratory: clear Abdomen: soft, flat, present bowel sounds Laboratory Tests Test 04/22/18 04:00 White Blood Count 11.9 K/UL (4.8-10.8) H Red Blood Count 2.95 M/UL (4.70-6.10) L Hemoglobin 9.3 G/DL (14.2-18.0) L Hematocrit 27.5 % (42.0-52.0) L Mean Corpuscular Volume 93 FL (80-99) Mean Corpuscular Hemoglobin 31.6 PG (27.0-31.0) H Mean Corpuscular Hemoglobin Concent 33.9 G/DL (32.0-36.0) Red Cell Distribution Width 12.7 % (11.6-14.8) Platelet Count 319 K/UL (150-450) Mean Platelet Volume 6.8 FL (6.5-10.1) Neutrophils (%) (Auto) 72.9 % (45.0-75.0) Lymphocytes (%) (Auto) 14.2 % (20.0-45.0) L Monocytes (%) (Auto) 8.5 % (1.0-10.0) Eosinophils (%) (Auto) 3.2 % (0.0-3.0) H Basophils (%) (Auto) 1.2 % (0.0-2.0) Sodium Level 142 MMOL/L (136-145) Potassium Level 2.9 MMOL/L (3.5-5.1) L Chloride Level 108 MMOL/L (98-107) H Carbon Dioxide Level 24 MMOL/L (21-32) Anion Gap 10 mmol/L (5-15) Blood Urea Nitrogen 8 mg/dL (7-18) Creatinine 0.4 MG/DL (0.55-1.30) L Estimat Glomerular Filtration Rate > 60 mL/min (>60) Glucose Level 148 MG/DL (74-106) H Calcium Level 8.5 MG/DL (8.5-10.1) Total Bilirubin 0.5 MG/DL (0.2-1.0) Aspartate Amino Transf (AST/SGOT) 13 U/L (15-37) L Alanine Aminotransferase (ALT/SGPT) 24 U/L (12-78) Alkaline Phosphatase 59 U/L (46-116) Total Protein 7.4 G/DL (6.4-8.2) Albumin 2.9 G/DL (3.4-5.0) L Globulin 4.5 g/dL Albumin/Globulin Ratio 0.6 (1.0-2.7) L Assessment Post-op Diagnosis trach vent dependant Plan Problems: (1) Abdominal pain Assessment & Plan: epigastric abdominal pain. states 10/10 at max. intermittent without radiation. pain on palpation of epigastric region during exam. ultrasound and CT reviewed. no signs of acute cholecystitis. does have sludge and stones. rectosigmoid thickening on CT possible colitis. does not seem to have colitis and CT findings not very specific. gallbladder with stones and sludge but no inflammation. no pancreatitis. EGD with distal gastritis trach changed without difficulty. stable since. Now with Positive HIDA still with intermittent pain. given above had long discussion with patient and family about condition and possibilities. given his medical history it is very hard to determine exact etiology of pain as exam limited. he presented with lekocytosis, elevated liver enzymes and sludge. initially HIDA negative but since pain persistent and now HIDA positive. can be due to persistent cholecystitis. discussed risks , benefits, and alternatives to intervention. patient and family decided to proceed with cholecystectomy to OR for lap isabel today thank you for this consultation. will follow with recs. Bry Fish Apr 22, 2018 12:18
--- NOTE | 2018-04-22 12:19 | Pre-Procedure Note/Attestation ---
Pre-Procedure Note/Attestation Complete Prior to Procedure Planned Procedure: not applicable Procedure Narrative: laparoscopic cholecystectomy, possible open Indications for Procedure Pre-Operative Diagnosis: cholecystitis. Attestation I attest that I discussed the nature of the procedure; its benefits; risks and complications; and alternatives (and the risks and benefits of such alternatives ), prior to the procedure, with the patient (or the patient's legal b2b sales representative). I attest that, if there was a reasonable possibility of needing a blood transfusion, the patient (or the patient's legal b2b sales representative) was given the [facility] standardized written summary, pursuant to the [place] Blood Safety Act ([place] Health and Safety Code # 1645, as amended). I attest that I re-evaluated the patient just prior to the surgery and that there has been no change in the patient's H&P, except as documented below: Bry Fish Apr 22, 2018 12:19
--- NOTE | 2018-04-22 14:55 | Diagnostic Imaging Report ---
Indication: History of ALS. Epigastric pain radiating to the left side. Technique: Grayscale and duplex Doppler imaging of the abdomen performed. Comparison: None Findings: Liver is grossly unremarkable. Main portal vein is patent. There is no ascites. Aorta is unremarkable. There is a calcification in the upper pole the right kidney. The callus patient may be associated with a small cyst. There is no hydronephrosis. The left kidney is unremarkable. There is no biliary ductal dilatation appreciated. The CBD is 5 mm in diameter. The pancreas is not well seen. The spleen is not visualized. IMPRESSION: No acute findings appreciated. Limitations as above
--- NOTE | 2018-04-22 15:49 | Anethesia Preoperative Eval ---
Anesthesia Pre-op PMH/ROS General Date of Evaluation: Apr 22, 2018 Time of Evaluation: 15:50 Anesthesiologist: ASA Score: ASA 3 Mallampati Score Class I : Soft palate, uvula, fauces, pillars visible Class II: Soft palate, uvula, fauces visible Class III: Soft palate, base of uvula visible Class IV: Only hard plate visible Mallampati Classification: Class II Surgeon: damian Diagnosis: cholecystitis Surgical Procedure: laparoscopic cholecystecyomy Family History: no anesthesia problems Allergies: Coded Allergies: No Known Allergies (Unverified , 04/08/18) Medications: see eMAR Past Medical History Cardiovascular: Denies: HTN, CAD, [place], valve dz, arrhythmia, other Pulmonary: Reports: other - ventilator dependent; Denies: asthma, COPD, MISA Neurologic/Psychiatric: Denies: dementia, CVA, depression/anxiety, TIA, other Endocrine: Denies: DM, hypothyroidism, steroids, other HEENT: Denies: cataract (L), cataract (R), glaucoma, KAKE (L), KAKE (R), other Hematology/Immune: Reports: anemia Musculoskeletal/Integumentary: Reports: other - amyotrophic lateral sclerosis ( ALS), ventilator dependent PSxH Narrative: tracheostomy, feeding tube Anesthesia Pre-op Phys. Exam Physician Exam Last Vital Signs Date Time Temp Pulse Resp B/P (MAP) Pulse Ox O2 Delivery O2 Flow Rate FiO2 04/22/18 14:47 70 14 21 04/22/18 12:43 99 Mechanical Ventilator 04/22/18 12:00 97.9 127/77 97.9 Constitutional: other - sensitve to pain over entire body Neurologic: other - severe weakness upper and lower body Cardiovascular: RRR Gastrointestinal: other - feeding tube in place, cholecyst Airway Exam Mallampati Score: Class II MO: full Neck: extreme muscle weakness in neck Teeth: intact Dentures: no upper, no lower Anesthesia Pre-op A/P Labs Hematology Test 04/22/18 04:00 White Blood Count 11.9 K/UL (4.8-10.8) H Red Blood Count 2.95 M/UL (4.70-6.10) L Hemoglobin 9.3 G/DL (14.2-18.0) L Hematocrit 27.5 % (42.0-52.0) L Mean Corpuscular Volume 93 FL (80-99) Mean Corpuscular Hemoglobin 31.6 PG (27.0-31.0) H Mean Corpuscular Hemoglobin Concent 33.9 G/DL (32.0-36.0) Red Cell Distribution Width 12.7 % (11.6-14.8) Platelet Count 319 K/UL (150-450) Mean Platelet Volume 6.8 FL (6.5-10.1) Neutrophils (%) (Auto) 72.9 % (45.0-75.0) Lymphocytes (%) (Auto) 14.2 % (20.0-45.0) L Monocytes (%) (Auto) 8.5 % (1.0-10.0) Eosinophils (%) (Auto) 3.2 % (0.0-3.0) H Basophils (%) (Auto) 1.2 % (0.0-2.0) Chemistry Test 04/22/18 04:00 Sodium Level 142 MMOL/L (136-145) Potassium Level 2.9 MMOL/L (3.5-5.1) L Chloride Level 108 MMOL/L (98-107) H Carbon Dioxide Level 24 MMOL/L (21-32) Anion Gap 10 mmol/L (5-15) Blood Urea Nitrogen 8 mg/dL (7-18) Creatinine 0.4 MG/DL (0.55-1.30) L Estimat Glomerular Filtration Rate > 60 mL/min (>60) Glucose Level 148 MG/DL (74-106) H Calcium Level 8.5 MG/DL (8.5-10.1) Total Bilirubin 0.5 MG/DL (0.2-1.0) Aspartate Amino Transf (AST/SGOT) 13 U/L (15-37) L Alanine Aminotransferase (ALT/SGPT) 24 U/L (12-78) Alkaline Phosphatase 59 U/L (46-116) Total Protein 7.4 G/DL (6.4-8.2) Albumin 2.9 G/DL (3.4-5.0) L Globulin 4.5 g/dL Albumin/Globulin Ratio 0.6 (1.0-2.7) L Risk Assessment & Plan Assessment: asa 3, okay to proceed Plan: GA Pre-Antibiotics Drug: zosyn and vancomycin given on floor Given Within 1 Hr of Incision: No - antibiotic dosing schedule followed Kirstie Rosado M.D. Apr 22, 2018 15:49
[2018-04-22] MEDS ORDERED: Propofol 200mg/20ml IV ONE (15:50)
[2018-04-22] MEDS ORDERED: fentaNYL 100 mcg/2 mL IV ONE ×2 (15:50→16:48)
[2018-04-22] MEDS ORDERED: Lidocaine 1% MPF 10mg/ml 5ml ONE (15:50)
[2018-04-22] MEDS ORDERED: Midazolam 2mg/2ml Inj ONE (15:50)
[2018-04-22] MEDS ORDERED: Zemuron 50mg/5ml Inj IV ONE (16:00)
[2018-04-22] MEDS ORDERED: EPINEPHrine 1mg/1ml Amp ONE (16:00)
[2018-04-22] MEDS ORDERED: NS Irrig 1000ml ONE (16:00)
[2018-04-22] MEDS ORDERED: Sterile Water Irrig 1000ml IRRIG ONE (16:00)
[2018-04-22] MEDS ORDERED: Iothalamate Meglumine 60% 30ML INJ ONE (16:01)
[2018-04-22] MEDS ORDERED: Bupivacaine 0.25% Inj 30ml INJ ONE (16:01)
[2018-04-22] MEDS ORDERED: Labetalol 5mg/ml 20ml vial IV ONE (17:08)
[2018-04-22] MEDS ORDERED: NS Irrig 1000ml IRRIG ONE (17:12)
[2018-04-22] MEDS ORDERED: Surgicel 4in x 8in TOPIC ONE (17:12)
[2018-04-22] MEDS: Docusate 100mg/10ml Liq NG SCH (18:00)
[2018-04-22] MEDS ORDERED: Dexamethasone 4mg/ml vial ONE (18:04)
--- NOTE | 2018-04-22 18:21 | Brief Operative Note ---
Immediate Post Operative Note Operative Note Pre-op Diagnosis: cholecystitis. Procedure: laparoscopic cholecystectomy Post-op Diagnosis: cholecystitis Surgeon: damian Anesthesiologist: keyana Anesthesia: general Specimen: yes Complications: none Condition: stable Fluids: see records Estimated Blood Loss: minimal Drains: none Implant(s) used?: No Bry Fish Apr 22, 2018 18:21
[2018-04-22] MEDS ORDERED: Ketorolac 30mg Inj IV PRN (18:30)
[2018-04-22] MEDS ORDERED: Hydromorphone 0.5mg/0.5ml inj IVP PRN (18:39)
--- NOTE | 2018-04-22 18:39 | 48 Hour Post Anesthesia Eval ---
Post Anesthesia Evaluation Procedure: lap isabel Date of Evaluation: Apr 22, 2018 Time of Evaluation: 18:35 Blood Pressure Systolic: 159 0: 84 Pulse Rate: 67 Respiratory Rate: 16 Temperature (Fahrenheit): 97.2 O2 Sat by Pulse Oximetry: 100 Airway: other - tracheostomy Nausea: No Vomiting: No Pain Intensity: 0 Hydration Status: adequate Mental Status/LOC: patient returned to baseline Post-Anesthesia Complications: none Follow-up care needed: N/A Kirstie Rosado M.D. Apr 22, 2018 18:39
[2018-04-22] MEDS ORDERED: DiphenhydrAMINE 50mg/ml Inj IVP PRN (18:40)
[2018-04-22] MEDS ORDERED: Midazolam 2mg/2ml Inj IVP PRN (18:40)
[2018-04-22] MEDS ORDERED: Labetalol 5mg/ml 20ml vial IV PRN (18:43)
[2018-04-22] MEDS: Dyna-Hex 2% Top Sol 2oz TOPIC SCH (23:04)
[2018-04-23] VITALS: BP 137/75
[2018-04-23] MEDS: Albuterol/Ipratropium 3ml neb HHN SCH ×4 (00:05→19:46)
[2018-04-23] MEDS: DiphenhydrAMINE 50mg/ml Inj IVP PRN (00:13)
[2018-04-23] MEDS: Morphine Sulfate 4mg/ml Inj IVP PRN ×5 (00:23→20:19)
--- NOTE | 2018-04-23 01:17 | Operative Note - Dictated ---
DATE OF OPERATION: 04/22/2018 PREOPERATIVE DIAGNOSIS: Cholecystitis. POSTOPERATIVE DIAGNOSIS: Cholecystitis. OPERATION PERFORMED: Laparoscopic cholecystectomy. ATTENDING SURGEON: Bry Fish M.D. DEVELOPMENTAL WRITING INSTRUCTOR: None. ANESTHESIOLOGIST: Dr. Alexandre. ANESTHESIA: General [employer]. SPECIMENS: Gallbladder. COMPLICATIONS: None. CONDITION: Stable. FLUIDS: Please see anesthesia records. ESTIMATED BLOOD LOSS: Minimal. DRAINS: None. IMPLANTS: None. WOUND CLASSIFICATION: Class III. ANTIBIOTICS: The patient on scheduled antibiotics prior to the operating room. COUNTS: Sponge and needle count correct x2. INDICATIONS FOR PROCEDURE: This is a 52-year-old male with LG disease, who presented with epigastric abdominal pain that is intermittent and severe. The patient states the pain had improved with pain medications, but when not given pain medications, the pain is persistently worsening. Initially, the patient presented with elevated LFTs and leukocytosis with the CT scan and ultrasound demonstrating a dilated common bile duct and gallbladder with sludge. The patient then had an ultrasound, which demonstrated distended gallbladder with stones and sludge within the neck of the gallbladder. HIDA scan was done on the 04/15/2018, which was negative and did not demonstrate cystic duct obstruction, common bowel duct obstruction. The patient continued to have pain with leukocytosis and a repeat HIDA scan was done, which demonstrated nonvisualization of the gallbladder with likely cystic duct obstruction. The patient has improved with pain and his symptoms persisted and given above findings, cholecystectomy was indicated and recommended. I discussed with the family the possibilities of pain being related to other issues, but unfortunately given his condition and sensory deficits, it is difficult to obtain exactly where the pain and symptoms are coming from, but the gallbladder seems to be the likely etiology. Discussed potential risks, benefits, and alternatives to surgery. We discussed risks of bleeding, infection, damage to the organs, common bile duct, necessity for reoperation, and potential for continued pain postoperatively. The patient and family expressed desire to proceed with surgery, which was performed on 04/22/2018. Consent was obtained. OPERATIVE NOTE: The patient was taken to the operating room and placed on the operating table in supine position with the left arm tucked. All bony prominences well padded. SCDs were placed. Preoperative time-out was taken identifying the patient, procedure, operative staff, and surgical staff. General anesthesia was induced and the patient was ventilated through his tracheostomy. The abdomen was then clipped, prepped, and draped in the standard surgical fashion. An infraumbilical incision was made and carried down to the fascia, which was elevated and incised. Entry into the abdomen was confirmed using the open Merline technique without complication. A 12-mm Merline trocar was inserted and the abdomen was insufflated to 12 to 15 mmHg. The patient tolerated the insufflation well. Secondary trocars were placed under direct visualization beginning with a 12-mm trocar in the subxiphoid epigastric position followed by two 5 mm trocars in the right subcostal area. Secondary trocars placed under direct visualization without complication. Local anesthetic was used throughout the procedure for incision sites and trocar placement . The abdomen was evaluated and G-tube noted to be in place, intestines otherwise normal and no acute abnormalities identified. The gallbladder was noted and the dome of the gallbladder was grasped using the most lateral retractor and then retracted over the liver. The infundibulum of the gallbladder was identified and there was noted to be a fair amount of inflammation and edema in the infundibulum. The peritoneal lining over the gallbladder was incised with electrocautery as well as the medial and lateral borders. The gallbladder was freed from the liver bed. Following this, dissection to identify the critical view was obtained. The cystic artery was identified and clipped and divided. The only remaining structure entering with into the gallbladder at the level of the infundibulum was a very dilated cystic duct. At this time, the very dilated cystic duct was ligated and divided high using laparoscopic clips. The gallbladder was then taken off the liver bed using electrocautery. Gallbladder was placed in the endoscopic retrieval bag and removed using the umbilical port site. The abdomen was irrigated and inspected for hemostasis, which was obtained using electrocautery. The cystic duct artery and liver bed were evaluated. There was no leakage of bile or bleeding. A Surgicel was left in the liver bed upon completion of the procedure. The patient tolerated the procedure well. Secondary ports were removed under direct visualization. The abdomen was allowed to desufflate. The subxiphoid and infraumbilical port site fascia was closed using a 0 [id number] Vicryl suture. The remaining skin incisions were closed using 4-0 Monocryl subcuticular sutures. Steri-Strips and dressings were applied. The patient and the procedure was concluded. Of note, in the procedure, the family instructed me that the patient had the prolonged tracheostomy tube place and they preferred a fenestrated tube and therefore prior to awaking the patient, his tracheostomy was changed from standard tracheostomy to an 8-Syriac fenestrated tracheostomy so that the patient could speak better. Tracheostomy tube changed well without complication. Bry Fish M.D. DR: DONA JOB#: [id number] CC: NAHED
[2018-04-23] MEDS: Zolpidem 5mg tab ORAL PRN ×2 (02:06→23:06)
[2018-04-23 04:00] VITALS: BP 121/72
[2018-04-23] MEDS: metroNIDAZOLE 500mg tab ORAL SCH ×3 (05:30→21:47)
[2018-04-23] MEDS: Piperacillin/Tazobactam 3.375 GM in D5W 110 ML IVPB SCH ×3 (05:31→21:47)
[2018-04-23 06:02] LABS: HEMATOCRIT 30.4 % (42.0-52.0); HEMOGLOBIN 9.8 G/DL (14.2-18.0); MEAN CORPUSCULAR VOLUME 93 FL (80-99); PLATELET COUNT 335 K/UL (150-450); RED BLOOD COUNT 3.27 M/UL (4.70-6.10); RED CELL DISTRIBUTION WIDTH 12.6 % (11.6-14.8); WHITE BLOOD COUNT 18.2 K/UL (4.8-10.8)
[2018-04-23 06:18] LABS: ALANINE AMINOTRANSFERASE 40 U/L (12-78); ALBUMIN/GLOBULIN RATIO 0.7 (1.0-2.7); ALKALINE PHOSPHATASE 56 U/L (46-116); ANION GAP 14 mmol/L (5-15); ASPARTATE AMINO TRANSFERASE 37 U/L (15-37); BILIRUBIN,TOTAL 0.7 MG/DL (0.2-1.0); BLOOD UREA NITROGEN 9 mg/dL (7-18); CALCIUM 8.6 MG/DL (8.5-10.1); CARBON DIOXIDE 19 MMOL/L (21-32); CHLORIDE 107 MMOL/L (98-107); CREATININE 0.3 MG/DL (0.55-1.30); POTASSIUM 3.9 MMOL/L (3.5-5.1); SODIUM 140 MMOL/L (136-145)
[2018-04-23 08:00] VITALS: BP 108/65
--- NOTE | 2018-04-23 08:14 | General Progress Note ---
Assessment/Plan Problem List: (1) Abdominal pain ICD Codes: R10.9 - Unspecified abdominal pain SNOMED: 81316011 Qualifiers: Qualified Codes: R10.13 - Epigastric pain (2) UGIB (upper gastrointestinal bleed) ICD Codes: K92.2 - Gastrointestinal hemorrhage, unspecified SNOMED: 84014714 (3) Tracheostomy dependent ICD Codes: Z93.0 - Tracheostomy status SNOMED: 233546607, 212100804 (4) ALS (amyotrophic lateral sclerosis) ICD Codes: G12.21 - Amyotrophic lateral sclerosis SNOMED: 95532882 Assessment/Plan post op care fu labs pain control Subjective ROS Limited/Unobtainable: Yes Allergies: Coded Allergies: No Known Allergies (Unverified , 04/08/18) Subjective s/p lap isabel abd pain post op Objective Last 24 Hour Vital Signs Date Time Temp Pulse Resp B/P (MAP) Pulse Ox O2 Delivery O2 Flow Rate FiO2 04/23/18 07:38 69 16 100 Mechanical Ventilator 30 04/23/18 07:35 30 04/23/18 07:34 66 14 100 Mechanical Ventilator 30 04/23/18 07:30 66 14 30 04/23/18 06:00 97.6 04/23/18 05:30 97.6 04/23/18 05:30 69 14 30 04/23/18 04:00 61 04/23/18 04:00 21 04/23/18 04:00 98.1 67 16 121/72 100 Mechanical Ventilator 21 98.1 04/23/18 03:30 68 14 30 04/23/18 01:00 67 14 30 04/23/18 00:27 66 16 30 04/23/18 00:25 66 16 100 Mechanical Ventilator 30 04/23/18 00:23 97.6 04/23/18 00:04 30 04/23/18 00:03 66 16 100 Mechanical Ventilator 30 04/23/18 00:00 21 04/23/18 00:00 100 04/23/18 00:00 99.0 66 16 137/75 100 Mechanical Ventilator 21 99.0 04/22/18 23:12 66 16 30 04/22/18 20:43 68 16 100 Mechanical Ventilator 30 04/22/18 20:34 68 16 30 04/22/18 20:28 30 04/22/18 20:28 66 16 100 Mechanical Ventilator 30 04/22/18 20:19 97.6 04/22/18 20:11 66 16 30 04/22/18 19:25 21 04/22/18 19:25 66 04/22/18 19:05 97.6 66 16 168/69 100 Mechanical Ventilator 21 97.6 04/22/18 18:50 66 15 162/80 100 Mechanical Ventilator 30 04/22/18 18:40 59 15 165/82 100 Mechanical Ventilator 30 04/22/18 18:39 207.0 67 16 100 04/22/18 18:30 61 16 159/84 100 Mechanical Ventilator 30 04/22/18 18:20 69 17 155/82 100 Mechanical Ventilator 30 04/22/18 18:15 65 16 169/82 100 Mechanical Ventilator 30 04/22/18 18:10 30 04/22/18 18:10 97.2 74 15 170/87 100 Mechanical Ventilator 30 97.2 04/22/18 16:00 62 04/22/18 16:00 98.2 61 14 120/67 100 Mechanical Ventilator 21 98.2 04/22/18 16:00 21 04/22/18 14:47 70 14 21 04/22/18 12:43 69 14 99 Mechanical Ventilator 21 04/22/18 12:35 72 16 21 04/22/18 12:35 72 14 98 Mechanical Ventilator 21 04/22/18 12:00 97.9 61 14 127/77 100 Mechanical Ventilator 21 97.9 04/22/18 12:00 21 04/22/18 12:00 61 04/22/18 10:57 74 15 21 04/22/18 09:25 64 15 21 Intake and Output 04/22/18 04/23/18 19:00 07:00 Intake Total 770.167 ml 377.5 ml Output Total 740 ml 350 ml Balance 30.167 ml 27.5 ml IV Total 670.167 ml 327.5 ml Tube Feeding 0 ml Other 100 ml 50 ml Output Urine Total 720 ml 350 ml Estimated Blood Loss 20 ml # Voids 3 Laboratory Tests 04/23/18 05:45: White Blood Count 18.2#H, Red Blood Count 3.27L, Hemoglobin 9.8L, Hematocrit 30.4L, Mean Corpuscular Volume 93, Mean Corpuscular Hemoglobin 30.0, Mean Corpuscular Hemoglobin Concent 32.3, Red Cell Distribution Width 12.6, Platelet Count 335, Mean Platelet Volume 6.7, Neutrophils (%) (Auto) , Lymphocytes (%) ( Auto) , Monocytes (%) (Auto) , Eosinophils (%) (Auto) , Basophils (%) (Auto) , Neutrophils % (Manual) [Pending], Lymphocytes % (Manual) [Pending], Platelet Estimate [Pending], Platelet Morphology [Pending], Sodium Level 140, Potassium Level 3.9, Chloride Level 107, Carbon Dioxide Level 19L, Anion Gap 14, Blood Urea Nitrogen 9, Creatinine 0.3L, Estimat Glomerular Filtration Rate > 60, Glucose Level 101, Calcium Level 8.6, Total Bilirubin 0.7, Aspartate Amino Transf (AST/SGOT) 37, Alanine Aminotransferase (ALT/SGPT) 40, Alkaline Phosphatase 56, Total Protein 7.6, Albumin 3.0L, Globulin 4.6, Albumin/Globulin Ratio 0.7L Height (Feet): 5 Height (Inches): 8.00 Weight (Pounds): 121 General Appearance: alert EENT: normal ENT inspection Neck: supple Cardiovascular: normal rate Respiratory/Chest: decreased breath sounds Abdomen: soft, hypoactive bowel sounds Extremities: non-tender Niraj Avalos MD Apr 23, 2018 08:14
[2018-04-23] MEDS: Docusate 100mg/10ml Liq NG SCH ×2 (09:13→17:26)
[2018-04-23] MEDS: Venlafaxine 25mg tab GT SCH ×2 (09:13→21:47)
[2018-04-23] MEDS: Pantoprazole Inj IVP SCH (09:13)
--- NOTE | 2018-04-23 10:40 | General Progress Note ---
Progress Note Progress Note Surgery: doing well. incisional pain. no n/v/f/c. wounds c/d/i.. abd soft. POD #1 s/p lap isabel. recovering. afebrile, HD stable, labs reviewed -leukocytosis likely reactive post op day 1 -feeds as tolerated -trend labs will follow with recs. Bry Fish Apr 23, 2018 10:40
--- NOTE | 2018-04-23 10:46 | 48 Hour Post Anesthesia Eval ---
Post Anesthesia Evaluation Procedure: lap isabel Date of Evaluation: Apr 23, 2018 Time of Evaluation: 08:00 Blood Pressure Systolic: 108 0: 65 Pulse Rate: 68 Respiratory Rate: 14 Temperature (Fahrenheit): 97.7 O2 Sat by Pulse Oximetry: 100 Airway: other - tracheostomy on ventilator Nausea: No Vomiting: No If pain is > 6 Comment: 0 Hydration Status: adequate Mental Status/LOC: patient returned to baseline Post-Anesthesia Complications: none Follow-up care needed: N/A Kirstie Rosado M.D. Apr 23, 2018 10:46
[2018-04-23] MEDS: Vancomycin 750mg/NS 250ml IVPB SCH (11:54)
[2018-04-23 12:00] VITALS: BP 113/65
--- NOTE | 2018-04-23 13:19 | General Progress Note ---
Assessment/Plan Assessment/Plan IMPRESSION gastritis trach gallstones anemia ALS leukocytosis staph bacteremia s/p isabel PLAN ID eval and antibiotics noted post op care vent; pain control maintain meds feeds per gi appears comfortable hope to see clinical and lab improvement and dc soon Subjective Allergies: Coded Allergies: No Known Allergies (Unverified , 04/08/18) Subjective underwent isabel comfortable Objective Last 24 Hour Vital Signs Date Time Temp Pulse Resp B/P (MAP) Pulse Ox O2 Delivery O2 Flow Rate FiO2 04/23/18 12:05 97.7 04/23/18 12:00 21 04/23/18 11:19 65 14 30 04/23/18 10:45 207.9 68 14 100 04/23/18 09:06 67 15 30 04/23/18 08:00 97.7 69 14 108/65 100 Mechanical Ventilator 21 97.7 04/23/18 08:00 21 04/23/18 08:00 68 04/23/18 07:38 69 16 100 Mechanical Ventilator 30 04/23/18 07:35 30 04/23/18 07:34 66 14 100 Mechanical Ventilator 30 04/23/18 07:30 66 14 30 04/23/18 06:00 97.6 04/23/18 05:30 97.6 04/23/18 05:30 69 14 30 04/23/18 04:00 61 04/23/18 04:00 21 04/23/18 04:00 98.1 67 16 121/72 100 Mechanical Ventilator 21 98.1 04/23/18 03:30 68 14 30 04/23/18 01:00 67 14 30 04/23/18 00:27 66 16 30 04/23/18 00:25 66 16 100 Mechanical Ventilator 30 04/23/18 00:23 97.6 04/23/18 00:04 30 04/23/18 00:03 66 16 100 Mechanical Ventilator 30 04/23/18 00:00 21 04/23/18 00:00 100 04/23/18 00:00 99.0 66 16 137/75 100 Mechanical Ventilator 21 99.0 04/22/18 23:12 66 16 30 04/22/18 20:43 68 16 100 Mechanical Ventilator 30 04/22/18 20:34 68 16 30 04/22/18 20:28 30 04/22/18 20:28 66 16 100 Mechanical Ventilator 30 04/22/18 20:19 97.6 04/22/18 20:11 66 16 30 04/22/18 19:25 21 04/22/18 19:25 66 04/22/18 19:05 97.6 66 16 168/69 100 Mechanical Ventilator 21 97.6 04/22/18 18:50 66 15 162/80 100 Mechanical Ventilator 30 04/22/18 18:40 59 15 165/82 100 Mechanical Ventilator 30 04/22/18 18:39 207.0 67 16 100 04/22/18 18:30 61 16 159/84 100 Mechanical Ventilator 30 04/22/18 18:20 69 17 155/82 100 Mechanical Ventilator 30 04/22/18 18:15 65 16 169/82 100 Mechanical Ventilator 30 04/22/18 18:10 30 04/22/18 18:10 97.2 74 15 170/87 100 Mechanical Ventilator 30 97.2 04/22/18 16:00 62 04/22/18 16:00 98.2 61 14 120/67 100 Mechanical Ventilator 21 98.2 04/22/18 16:00 21 04/22/18 14:47 70 14 21 Intake and Output 04/22/18 04/23/18 19:00 07:00 Intake Total 770.167 ml 377.5 ml Output Total 740 ml 350 ml Balance 30.167 ml 27.5 ml IV Total 670.167 ml 327.5 ml Tube Feeding 0 ml Other 100 ml 50 ml Output Urine Total 720 ml 350 ml Estimated Blood Loss 20 ml # Voids 3 Laboratory Tests 04/23/18 05:45: White Blood Count 18.2#H, Red Blood Count 3.27L, Hemoglobin 9.8L, Hematocrit 30.4L, Mean Corpuscular Volume 93, Mean Corpuscular Hemoglobin 30.0, Mean Corpuscular Hemoglobin Concent 32.3, Red Cell Distribution Width 12.6, Platelet Count 335, Mean Platelet Volume 6.7, Neutrophils (%) (Auto) , Lymphocytes (%) ( Auto) , Monocytes (%) (Auto) , Eosinophils (%) (Auto) , Basophils (%) (Auto) , Differential Total Cells Counted 100, Neutrophils % (Manual) 89H, Lymphocytes % (Manual) 4L, Monocytes % (Manual) 5, Eosinophils % (Manual) 0, Basophils % ( Manual) 0, Band Neutrophils 2, Platelet Estimate Adequate, Platelet Morphology Normal, Hypochromasia 1+, Sodium Level 140, Potassium Level 3.9, Chloride Level 107, Carbon Dioxide Level 19L, Anion Gap 14, Blood Urea Nitrogen 9, Creatinine 0.3L, Estimat Glomerular Filtration Rate > 60, Glucose Level 101, Calcium Level 8.6, Total Bilirubin 0.7, Aspartate Amino Transf (AST/SGOT) 37, Alanine Aminotransferase (ALT/SGPT) 40, Alkaline Phosphatase 56, Total Protein 7.6, Albumin 3.0L, Globulin 4.6, Albumin/Globulin Ratio 0.7L Height (Feet): 5 Height (Inches): 8.00 Weight (Pounds): 121 Objective WDWN NAD clear breath sounds bilaterally without rhonchi or wheeze [id number] without MRG NABS GT in place no CCE quad trach Bob Cassidy MD Apr 23, 2018 13:19
[2018-04-23 16:00] VITALS: BP 123/67
[2018-04-23] MEDS ORDERED: Zolpidem 5mg tab ORAL PRN (19:30)
[2018-04-23 20:00] VITALS: BP 124/72
[2018-04-23] MEDS: Dyna-Hex 2% Top Sol 2oz TOPIC SCH (20:04)
[2018-04-24] VITALS: BP 140/75
[2018-04-24] MEDS: Morphine Sulfate 4mg/ml Inj IVP PRN ×4 (00:24→21:36)
[2018-04-24] MEDS: Albuterol/Ipratropium 3ml neb HHN SCH ×4 (01:17→19:03)
[2018-04-24] MEDS: Vancomycin 750mg/NS 250ml IVPB SCH (01:50)
[2018-04-24] MEDS: Zolpidem 5mg tab ORAL PRN ×2 (01:51→21:52)
[2018-04-24 04:00] VITALS: BP 118/66
[2018-04-24] MEDS: metroNIDAZOLE 500mg tab ORAL SCH ×3 (05:57→21:35)
[2018-04-24] MEDS: Piperacillin/Tazobactam 3.375 GM in D5W 110 ML IVPB SCH ×3 (05:57→21:35)
[2018-04-24 08:00] VITALS: BP 113/61
[2018-04-24] MEDS: Venlafaxine 25mg tab GT SCH ×2 (09:17→21:35)
[2018-04-24] MEDS: Docusate 100mg/10ml Liq NG SCH ×2 (09:17→17:32)
[2018-04-24] MEDS: HYDROmorphone 4mg tab GT PRN ×2 (09:17→17:32)
[2018-04-24] MEDS: Pantoprazole Inj IVP SCH (09:17)
--- NOTE | 2018-04-24 10:55 | General Progress Note ---
Assessment/Plan Problem List: (1) Abdominal pain ICD Codes: R10.9 - Unspecified abdominal pain SNOMED: 59946491 Qualifiers: Qualified Codes: R10.13 - Epigastric pain (2) UGIB (upper gastrointestinal bleed) ICD Codes: K92.2 - Gastrointestinal hemorrhage, unspecified SNOMED: 22871751 (3) Tracheostomy dependent ICD Codes: Z93.0 - Tracheostomy status SNOMED: 901740841, 055847792 (4) ALS (amyotrophic lateral sclerosis) ICD Codes: G12.21 - Amyotrophic lateral sclerosis SNOMED: 37200757 Assessment/Plan post op care fu labs pain control Subjective ROS Limited/Unobtainable: Yes Allergies: Coded Allergies: No Known Allergies (Unverified , 04/08/18) Subjective s/p lap isabel abd pain post op Objective Last 24 Hour Vital Signs Date Time Temp Pulse Resp B/P (MAP) Pulse Ox O2 Delivery O2 Flow Rate FiO2 04/24/18 09:17 98.8 04/24/18 09:15 68 14 30 04/24/18 08:00 64 04/24/18 08:00 21 04/24/18 08:00 98.8 71 24 113/61 100 Mechanical Ventilator 30 98.8 04/24/18 07:32 76 15 100 Mechanical Ventilator 30 04/24/18 07:27 30 04/24/18 07:22 76 15 100 Mechanical Ventilator 21 04/24/18 07:20 76 15 30 04/24/18 05:18 67 18 30 04/24/18 04:00 21 04/24/18 04:00 65 04/24/18 04:00 98.8 79 18 118/66 100 Mechanical Ventilator 21 98.8 04/24/18 03:21 77 18 30 04/24/18 01:35 80 18 100 Mechanical Ventilator 30 04/24/18 01:16 30 04/24/18 01:16 80 18 100 Mechanical Ventilator 21 04/24/18 01:15 80 18 30 04/24/18 00:00 21 04/24/18 00:00 86 04/24/18 00:00 98.9 80 18 140/75 100 Mechanical Ventilator 21 98.9 04/23/18 23:04 85 18 30 04/23/18 21:14 85 18 30 04/23/18 20:05 85 18 100 Mechanical Ventilator 21 04/23/18 20:00 88 04/23/18 20:00 98.7 85 18 124/72 100 Mechanical Ventilator 21 98.7 04/23/18 20:00 21 04/23/18 19:45 72 14 100 Mechanical Ventilator 30 04/23/18 19:45 30 04/23/18 19:42 72 14 30 04/23/18 17:07 78 14 30 04/23/18 16:00 98.0 64 18 123/67 100 Mechanical Ventilator 21 98.0 04/23/18 16:00 21 04/23/18 16:00 81 04/23/18 15:13 84 14 30 04/23/18 13:30 60 18 100 Mechanical Ventilator 30 04/23/18 13:19 30 04/23/18 13:19 60 14 99 Mechanical Ventilator 30 04/23/18 13:16 60 14 30 04/23/18 12:05 97.7 04/23/18 12:00 21 04/23/18 12:00 97.4 64 14 113/65 100 Mechanical Ventilator 21 97.4 04/23/18 12:00 58 04/23/18 11:19 65 14 30 Intake and Output 04/23/18 04/24/18 19:00 07:00 Intake Total 842.500 ml 637.5 ml Output Total 270 ml Balance 842.500 ml 367.5 ml Intake Free Water 150 ml IV Total 442.500 ml 387.5 ml Tube Feeding 250 ml 250 ml Output Urine Total 270 ml # Voids 2 Laboratory Tests 04/23/18 23:30: Vancomycin Level Trough 15.1H Height (Feet): 5 Height (Inches): 8.00 Weight (Pounds): 125 General Appearance: alert EENT: normal ENT inspection Neck: supple Cardiovascular: normal rate Respiratory/Chest: decreased breath sounds Abdomen: normal bowel sounds, non tender, soft Extremities: non-tender Niraj Avalos MD Apr 24, 2018 10:55
--- NOTE | 2018-04-24 11:01 | Infectious Diseases Prog Note ---
Assessment/Plan Assessment/Plan A; Cholecystitis s/p laparoscopic cholecystectomy Colitis MRSA colonization Positive blood culture likely contamination ALS VDRF P: discontinue Vancomycin, Continue Zosyn & Flagyl Will f/u cultures Subjective ROS Limited/Unobtainable: Yes Constitutional: Reports: no symptoms Musculoskeletal: Reports: pain, other - in surgical site Allergies: Coded Allergies: No Known Allergies (Unverified , 04/08/18) Objective Vital Signs Last 24 Hour Vital Signs Date Time Temp Pulse Resp B/P (MAP) Pulse Ox O2 Delivery O2 Flow Rate FiO2 04/24/18 09:17 98.8 04/24/18 09:15 68 14 30 04/24/18 08:00 64 04/24/18 08:00 21 04/24/18 08:00 98.8 71 24 113/61 100 Mechanical Ventilator 30 98.8 04/24/18 07:32 76 15 100 Mechanical Ventilator 30 04/24/18 07:27 30 04/24/18 07:22 76 15 100 Mechanical Ventilator 21 04/24/18 07:20 76 15 30 04/24/18 05:18 67 18 30 04/24/18 04:00 21 04/24/18 04:00 65 04/24/18 04:00 98.8 79 18 118/66 100 Mechanical Ventilator 21 98.8 04/24/18 03:21 77 18 30 04/24/18 01:35 80 18 100 Mechanical Ventilator 30 04/24/18 01:16 30 04/24/18 01:16 80 18 100 Mechanical Ventilator 21 04/24/18 01:15 80 18 30 04/24/18 00:00 21 04/24/18 00:00 86 04/24/18 00:00 98.9 80 18 140/75 100 Mechanical Ventilator 21 98.9 04/23/18 23:04 85 18 30 04/23/18 21:14 85 18 30 04/23/18 20:05 85 18 100 Mechanical Ventilator 21 04/23/18 20:00 88 04/23/18 20:00 98.7 85 18 124/72 100 Mechanical Ventilator 21 98.7 04/23/18 20:00 21 04/23/18 19:45 72 14 100 Mechanical Ventilator 30 04/23/18 19:45 30 04/23/18 19:42 72 14 30 04/23/18 17:07 78 14 30 04/23/18 16:00 98.0 64 18 123/67 100 Mechanical Ventilator 21 98.0 04/23/18 16:00 21 04/23/18 16:00 81 04/23/18 15:13 84 14 30 04/23/18 13:30 60 18 100 Mechanical Ventilator 30 04/23/18 13:19 30 04/23/18 13:19 60 14 99 Mechanical Ventilator 30 04/23/18 13:16 60 14 30 04/23/18 12:05 97.7 04/23/18 12:00 21 04/23/18 12:00 97.4 64 14 113/65 100 Mechanical Ventilator 21 97.4 04/23/18 12:00 58 04/23/18 11:19 65 14 30 Height (Feet): 5 Height (Inches): 8.00 Weight (Pounds): 125 HEENT: status post trach Respiratory/Chest: lungs clear, other - on ventilator Cardiovascular: normal rate, other - left arm PICC line Abdomen: other - soft, RUQ tender Extremities: no edema Neurologic/Psychiatric: alert, responsive Laboratory Tests Test 04/23/18 23:30 Vancomycin Level Trough 15.1 ug/mL (5.0-12.0) H Current Medications Medications (Trade) Dose Ordered Sig/Markel Route PRN Reason Start Time Stop Time Status Last Admin Dose Admin Acetaminophen (Tylenol) 650 mg Q4H PRN ORAL Prn mild pain/Temp > 101 04/09/18 07:00 05/09/18 06:59 04/10/18 22:48 Acetylcysteine (Mucomyst) 100 mg Q6HRT N 04/12/18 13:00 05/09/18 09:59 04/24/18 01:18 Al Hydroxide/Mg Hydroxide (Mylanta) 30 ml Q4H PRN GT Abdominal cramps 04/09/18 07:00 05/09/18 06:59 Albuterol/ Ipratropium (Albuterol/ Ipratropium) 3 ml Q6HRT N 04/20/18 13:00 04/25/18 12:59 04/24/18 07:22 Baclofen (Lioresal) 10 mg THREE TIMES A DAY ORAL 04/09/18 09:00 05/09/18 08:59 04/24/18 09:17 Chlorhexidine Gluconate (Yuridia-Hex 2%) 1 applic DAILY@2000 TOPIC 04/21/18 20:00 05/21/18 19:59 04/23/18 20:04 Dextrose (Dextrose 50%) 25 ml STAT PRN IV Hypoglycemia 04/09/18 07:00 05/09/18 06:59 Dextrose (Dextrose 50%) 50 ml STAT PRN IV Hypoglycemia 04/09/18 07:00 05/09/18 06:59 Diphenhydramine HCl (Benadryl Cream) 1 applic THREE TIMES A DAY PRN TOPIC Itching 04/20/18 21:45 05/20/18 21:44 04/20/18 22:04 Diphenhydramine HCl (Benadryl) 25 mg Q6H PRN IVP Itching 04/11/18 11:00 05/11/18 10:59 04/23/18 00:13 Docusate Sodium (Colace) 100 mg TWICE A DAY NG 04/22/18 18:00 05/22/18 17:59 04/24/18 09:17 Hydromorphone HCl (Dilaudid) 4 mg Q2H PRN GT Severe Pain (Pain Scale 7-10) 04/22/18 18:30 04/29/18 18:29 04/24/18 09:17 Ketorolac Tromethamine (Toradol 30mg) 15 mg Q6H PRN IV breakthrough pain (1-7) 04/22/18 18:30 04/27/18 18:29 04/23/18 08:02 Magnesium Hydroxide (Mom) 30 ml HSPRN PRN ORAL Constipation 04/09/18 07:00 05/09/18 06:59 Metronidazole (Flagyl) 500 mg Q8HR ORAL 04/19/18 14:00 04/26/18 13:59 04/24/18 05:57 Mineral Oil (Fleet's Mineral Oil Enema) 133 ml DAILYPRN PRN RECTAL Constipation 04/10/18 06:45 05/10/18 06:44 Morphine Sulfate (Morphine Sulfate) 4 mg Q4H PRN IVP Severe Breakthru Pain (>7) 04/22/18 18:30 04/29/18 18:29 04/24/18 04:42 Pantoprazole (Protonix) 40 mg DAILY IVP 04/09/18 09:00 05/09/18 08:59 04/24/18 09:17 Piperacillin Sod/ Tazobactam Sod 3.375 gm/Dextrose 110 ml @ 27.5 mls/hr EVERY 8 HOURS IVPB 04/19/18 15:00 04/24/18 14:59 04/24/18 05:57 Vancomycin HCl (Vanco rx to dose) 1 ea DAILY PRN MISC Per rx protocol 04/19/18 12:15 05/19/18 12:14 Vancomycin/Sodium Chloride 250 ml @ 166.667 mls/hr Q12HR@0000,1200 IVPB 04/20/18 00:00 04/25/18 00:00 04/24/18 01:50 Venlafaxine HCl (Effexor) 25 mg Q12HR GT 04/09/18 21:00 05/09/18 08:59 04/24/18 09:17 Zolpidem Tartrate (Ambien) 5 mg HSPRN PRN ORAL Insomnia 04/23/18 21:00 04/30/18 20:59 04/24/18 01:51 Zolpidem Tartrate (Ambien) 10 mg HSPRN PRN ORAL Insomnia 04/23/18 21:00 04/30/18 20:59 04/23/18 23:06 Richard Lerma MD Apr 24, 2018 11:01
[2018-04-24] MEDS ORDERED: NS 275ml ONE (11:05)
[2018-04-24] MEDS ORDERED: Tubing IV Secondary IV ONE (11:05)
[2018-04-24 11:59] VITALS: BP 137/75
--- NOTE | 2018-04-24 14:10 | General Progress Note ---
Assessment/Plan Assessment/Plan IMPRESSION gastritis trach gallstones anemia ALS leukocytosis staph bacteremia s/p isabel PLAN ID eval and antibiotics noted post op care vent; pain control recheck labs maintain meds feeds per gi appears comfortable hope to see clinical and lab improvement and dc soon once cleared by gi and id Subjective Allergies: Coded Allergies: No Known Allergies (Unverified , 04/08/18) Subjective underwent isabel comfortable no new labs Objective Last 24 Hour Vital Signs Date Time Temp Pulse Resp B/P (MAP) Pulse Ox O2 Delivery O2 Flow Rate FiO2 04/24/18 13:49 82 20 100 Mechanical Ventilator 30 04/24/18 13:40 30 04/24/18 13:39 82 15 99 Mechanical Ventilator 21 04/24/18 13:10 82 15 30 04/24/18 12:27 98.2 04/24/18 12:00 30 04/24/18 11:59 98.2 75 26 137/75 100 Mechanical Ventilator 30 98.2 04/24/18 11:53 98.8 04/24/18 11:13 76 15 30 04/24/18 10:30 98.8 04/24/18 09:17 98.8 04/24/18 09:15 68 14 30 04/24/18 08:00 64 04/24/18 08:00 21 04/24/18 08:00 98.8 71 24 113/61 100 Mechanical Ventilator 30 98.8 04/24/18 07:32 76 15 100 Mechanical Ventilator 30 04/24/18 07:27 30 04/24/18 07:22 76 15 100 Mechanical Ventilator 21 04/24/18 07:20 76 15 30 04/24/18 05:18 67 18 30 04/24/18 04:00 21 04/24/18 04:00 65 04/24/18 04:00 98.8 79 18 118/66 100 Mechanical Ventilator 21 98.8 04/24/18 03:21 77 18 30 04/24/18 01:35 80 18 100 Mechanical Ventilator 30 04/24/18 01:16 30 04/24/18 01:16 80 18 100 Mechanical Ventilator 21 04/24/18 01:15 80 18 30 04/24/18 00:00 21 04/24/18 00:00 86 04/24/18 00:00 98.9 80 18 140/75 100 Mechanical Ventilator 21 98.9 04/23/18 23:04 85 18 30 04/23/18 21:14 85 18 30 04/23/18 20:05 85 18 100 Mechanical Ventilator 21 04/23/18 20:00 88 04/23/18 20:00 98.7 85 18 124/72 100 Mechanical Ventilator 21 98.7 04/23/18 20:00 21 04/23/18 19:45 72 14 100 Mechanical Ventilator 30 04/23/18 19:45 30 04/23/18 19:42 72 14 30 04/23/18 17:07 78 14 30 04/23/18 16:00 98.0 64 18 123/67 100 Mechanical Ventilator 21 98.0 04/23/18 16:00 21 04/23/18 16:00 81 04/23/18 15:13 84 14 30 Intake and Output 04/23/18 04/24/18 19:00 07:00 Intake Total 842.500 ml 637.5 ml Output Total 270 ml Balance 842.500 ml 367.5 ml Intake Free Water 150 ml IV Total 442.500 ml 387.5 ml Tube Feeding 250 ml 250 ml Output Urine Total 270 ml # Voids 2 Laboratory Tests 04/23/18 23:30: Vancomycin Level Trough 15.1H Height (Feet): 5 Height (Inches): 8.00 Weight (Pounds): 125 Objective WDWN NAD clear breath sounds bilaterally without rhonchi or wheeze [id number] without MRG NABS GT in place no CCE quad trach Bob Cassidy MD Apr 24, 2018 14:10
[2018-04-24] MEDS ORDERED: NS 500ML ONE (15:22)
[2018-04-24 16:00] VITALS: BP 134/80
--- NOTE | 2018-04-24 17:52 | General Progress Note ---
Progress Note Progress Note no acute events. doing well. comfortable. pain controlled. wounds c/d/i. -diet as tolerated -AM labs thank you Bry Fish Apr 24, 2018 17:52
[2018-04-24 20:00] VITALS: BP_SYST 129; BP_SYST 134; BP_DIAS 67; BP_DIAS 68
[2018-04-24] MEDS: Dyna-Hex 2% Top Sol 2oz TOPIC SCH (20:10)
[2018-04-25] VITALS: BP 114/70
[2018-04-25] MEDS: Albuterol/Ipratropium 3ml neb HHN SCH ×4 (01:03→19:39)
[2018-04-25] MEDS: Zolpidem 5mg tab ORAL PRN ×2 (02:02→21:56)
[2018-04-25 05:02] LABS: BASOPHILS % (AUTO) 1.1 % (0.0-2.0); HEMATOCRIT 26.6 % (42.0-52.0); HEMOGLOBIN 8.8 G/DL (14.2-18.0); LYMPHOCYTES % (AUTO) 12.5 % (20.0-45.0); MEAN CORPUSCULAR VOLUME 93 FL (80-99); MONOCYTES % (AUTO) 10.9 % (1.0-10.0); NEUTROPHILS % (AUTO) 73.6 % (45.0-75.0); PLATELET COUNT 305 K/UL (150-450); RED BLOOD COUNT 2.87 M/UL (4.70-6.10); RED CELL DISTRIBUTION WIDTH 12.7 % (11.6-14.8); WHITE BLOOD COUNT 11.6 K/UL (4.8-10.8)
[2018-04-25 05:34] LABS: ALANINE AMINOTRANSFERASE 24 U/L (12-78); ALBUMIN 2.6 G/DL (3.4-5.0); ALBUMIN/GLOBULIN RATIO 0.6 (1.0-2.7); ALKALINE PHOSPHATASE 45 U/L (46-116); ANION GAP 9 mmol/L (5-15); ASPARTATE AMINO TRANSFERASE 12 U/L (15-37); BILIRUBIN,TOTAL 0.5 MG/DL (0.2-1.0); BLOOD UREA NITROGEN 5 mg/dL (7-18); CALCIUM 8.4 MG/DL (8.5-10.1); CARBON DIOXIDE 24 MMOL/L (21-32); CHLORIDE 106 MMOL/L (98-107); CREATININE 0.3 MG/DL (0.55-1.30); SODIUM 139 MMOL/L (136-145)
[2018-04-25] MEDS: metroNIDAZOLE 500mg tab ORAL SCH ×3 (05:36→21:55)
[2018-04-25] MEDS: Piperacillin/Tazobactam 3.375 GM in D5W 110 ML IVPB SCH ×3 (05:36→21:55)
[2018-04-25 05:41] LABS: POTASSIUM 2.7 MMOL/L (3.5-5.1)
[2018-04-25] MEDS: HYDROmorphone 4mg tab GT PRN ×2 (05:51→13:49)
[2018-04-25 08:00] VITALS: BP 125/74
--- NOTE | 2018-04-25 08:16 | General Progress Note ---
Assessment/Plan Assessment/Plan IMPRESSION gastritis trach gallstones anemia ALS leukocytosis staph bacteremia s/p isabel PLAN ID eval and antibiotics noted post op care as is replace K vent; pain control recheck labs maintain meds feeds per gi appears comfortable overall hope to proceed with dc soon Subjective Allergies: Coded Allergies: No Known Allergies (Unverified , 04/08/18) Subjective low K comfortable labs noted Objective Last 24 Hour Vital Signs Date Time Temp Pulse Resp B/P (MAP) Pulse Ox O2 Delivery O2 Flow Rate FiO2 04/25/18 05:10 81 14 30 04/25/18 04:00 67 04/25/18 04:00 30 04/25/18 03:05 85 15 30 04/25/18 01:21 30 04/25/18 01:21 76 20 99 Mechanical Ventilator 30 04/25/18 01:04 62 15 98 Mechanical Ventilator 30 04/25/18 01:03 85 15 30 04/25/18 00:00 98.7 68 16 114/70 100 Mechanical Ventilator 30 98.7 04/25/18 00:00 67 04/24/18 23:06 67 15 30 04/24/18 21:15 85 15 30 04/24/18 20:00 30 04/24/18 20:00 62 04/24/18 20:00 98.9 79 18 134/67 100 Mechanical Ventilator 30 98.9 04/24/18 19:19 65 20 99 Mechanical Ventilator 30 04/24/18 19:18 30 04/24/18 19:09 62 15 99 Mechanical Ventilator 30 04/24/18 19:01 62 15 30 04/24/18 18:42 97.9 04/24/18 17:32 97.9 04/24/18 17:11 61 14 30 04/24/18 16:00 73 04/24/18 16:00 97.9 78 16 134/80 100 Mechanical Ventilator 30 97.9 04/24/18 16:00 30 04/24/18 14:48 80 15 30 04/24/18 13:49 82 20 100 Mechanical Ventilator 30 04/24/18 13:40 30 04/24/18 13:39 82 15 99 Mechanical Ventilator 21 04/24/18 13:10 82 15 30 04/24/18 12:27 98.2 04/24/18 12:00 30 04/24/18 11:59 98.2 75 26 137/75 100 Mechanical Ventilator 30 98.2 04/24/18 11:53 98.8 04/24/18 11:46 80 04/24/18 11:13 76 15 30 04/24/18 09:17 98.8 04/24/18 09:15 68 14 30 Intake and Output 04/24/18 04/25/18 19:00 07:00 Intake Total 240.0 ml 387.5 ml Balance 240.0 ml 387.5 ml IV Total 110.0 ml 137.5 ml Tube Feeding 250 ml Other 130 ml # Voids 2 3 # Bowel Movements 1 Laboratory Tests 04/24/18 09:10: Stool Occult Blood [Pending] 04/25/18 03:40: White Blood Count 11.6H, Red Blood Count 2.87L, Hemoglobin 8.8L, Hematocrit 26.6L, Mean Corpuscular Volume 93, Mean Corpuscular Hemoglobin 30.7, Mean Corpuscular Hemoglobin Concent 33.1, Red Cell Distribution Width 12.7, Platelet Count 305, Mean Platelet Volume 6.8, Neutrophils (%) (Auto) 73.6, Lymphocytes (% ) (Auto) 12.5L, Monocytes (%) (Auto) 10.9H, Eosinophils (%) (Auto) 2.0, Basophils (%) (Auto) 1.1, Sodium Level 139, Potassium Level 2.7*L, Chloride Level 106, Carbon Dioxide Level 24, Anion Gap 9, Blood Urea Nitrogen 5L, Creatinine 0.3L, Estimat Glomerular Filtration Rate > 60, Glucose Level 154H, Calcium Level 8.4L, Total Bilirubin 0.5, Aspartate Amino Transf (AST/SGOT) 12L, Alanine Aminotransferase (ALT/SGPT) 24, Alkaline Phosphatase 45L, Total Protein 6.9, Albumin 2.6L, Globulin 4.3, Albumin/Globulin Ratio 0.6L Height (Feet): 5 Height (Inches): 8.00 Weight (Pounds): 125 Objective WDWN NAD clear breath sounds bilaterally without rhonchi or wheeze [id number] without MRG NABS GT in place no CCE quad trach Bob Cassidy MD Apr 25, 2018 08:16
--- NOTE | 2018-04-25 08:19 | General Progress Note ---
Assessment/Plan Problem List: (1) Abdominal pain ICD Codes: R10.9 - Unspecified abdominal pain SNOMED: 55074150 Qualifiers: Qualified Codes: R10.13 - Epigastric pain (2) UGIB (upper gastrointestinal bleed) ICD Codes: K92.2 - Gastrointestinal hemorrhage, unspecified SNOMED: 39514027 (3) Tracheostomy dependent ICD Codes: Z93.0 - Tracheostomy status SNOMED: 409478361, 246658146 (4) ALS (amyotrophic lateral sclerosis) ICD Codes: G12.21 - Amyotrophic lateral sclerosis SNOMED: 01409395 Assessment/Plan post op care fu labs pain control K replaced per nurses repeat labs in am bowel regimen Subjective ROS Limited/Unobtainable: Yes Allergies: Coded Allergies: No Known Allergies (Unverified , 04/08/18) Subjective s/p lap isabel abd pain post op but better Objective Last 24 Hour Vital Signs Date Time Temp Pulse Resp B/P (MAP) Pulse Ox O2 Delivery O2 Flow Rate FiO2 04/25/18 05:10 81 14 30 04/25/18 04:00 67 04/25/18 04:00 30 04/25/18 03:05 85 15 30 04/25/18 01:21 30 04/25/18 01:21 76 20 99 Mechanical Ventilator 30 04/25/18 01:04 62 15 98 Mechanical Ventilator 30 04/25/18 01:03 85 15 30 04/25/18 00:00 98.7 68 16 114/70 100 Mechanical Ventilator 30 98.7 04/25/18 00:00 67 04/24/18 23:06 67 15 30 04/24/18 21:15 85 15 30 04/24/18 20:00 30 04/24/18 20:00 62 04/24/18 20:00 98.9 79 18 134/67 100 Mechanical Ventilator 30 98.9 04/24/18 19:19 65 20 99 Mechanical Ventilator 30 04/24/18 19:18 30 04/24/18 19:09 62 15 99 Mechanical Ventilator 30 04/24/18 19:01 62 15 30 04/24/18 18:42 97.9 04/24/18 17:32 97.9 04/24/18 17:11 61 14 30 04/24/18 16:00 73 04/24/18 16:00 97.9 78 16 134/80 100 Mechanical Ventilator 30 97.9 04/24/18 16:00 30 04/24/18 14:48 80 15 30 04/24/18 13:49 82 20 100 Mechanical Ventilator 30 04/24/18 13:40 30 04/24/18 13:39 82 15 99 Mechanical Ventilator 21 04/24/18 13:10 82 15 30 04/24/18 12:27 98.2 04/24/18 12:00 30 04/24/18 11:59 98.2 75 26 137/75 100 Mechanical Ventilator 30 98.2 04/24/18 11:53 98.8 04/24/18 11:46 80 04/24/18 11:13 76 15 30 04/24/18 09:17 98.8 04/24/18 09:15 68 14 30 Intake and Output 04/24/18 04/25/18 19:00 07:00 Intake Total 240.0 ml 387.5 ml Balance 240.0 ml 387.5 ml IV Total 110.0 ml 137.5 ml Tube Feeding 250 ml Other 130 ml # Voids 2 3 # Bowel Movements 1 Laboratory Tests 04/24/18 09:10: Stool Occult Blood [Pending] 04/25/18 03:40: White Blood Count 11.6H, Red Blood Count 2.87L, Hemoglobin 8.8L, Hematocrit 26.6L, Mean Corpuscular Volume 93, Mean Corpuscular Hemoglobin 30.7, Mean Corpuscular Hemoglobin Concent 33.1, Red Cell Distribution Width 12.7, Platelet Count 305, Mean Platelet Volume 6.8, Neutrophils (%) (Auto) 73.6, Lymphocytes (% ) (Auto) 12.5L, Monocytes (%) (Auto) 10.9H, Eosinophils (%) (Auto) 2.0, Basophils (%) (Auto) 1.1, Sodium Level 139, Potassium Level 2.7*L, Chloride Level 106, Carbon Dioxide Level 24, Anion Gap 9, Blood Urea Nitrogen 5L, Creatinine 0.3L, Estimat Glomerular Filtration Rate > 60, Glucose Level 154H, Calcium Level 8.4L, Total Bilirubin 0.5, Aspartate Amino Transf (AST/SGOT) 12L, Alanine Aminotransferase (ALT/SGPT) 24, Alkaline Phosphatase 45L, Total Protein 6.9, Albumin 2.6L, Globulin 4.3, Albumin/Globulin Ratio 0.6L Height (Feet): 5 Height (Inches): 8.00 Weight (Pounds): 125 General Appearance: alert EENT: normal ENT inspection Neck: supple Cardiovascular: normal rate Respiratory/Chest: decreased breath sounds Abdomen: normal bowel sounds, soft Extremities: non-tender Niraj Avalos MD Apr 25, 2018 08:19
[2018-04-25] MEDS: Morphine Sulfate 4mg/ml Inj IVP PRN (10:04)
[2018-04-25] MEDS: Venlafaxine 25mg tab GT SCH ×2 (10:04→21:34)
[2018-04-25] MEDS: Docusate 100mg/10ml Liq NG SCH ×2 (10:04→18:36)
[2018-04-25] MEDS: Pantoprazole Inj IVP SCH (10:04)
[2018-04-25 11:22] LABS: ANION GAP 11 mmol/L (5-15); BLOOD UREA NITROGEN 6 mg/dL (7-18); CALCIUM 8.5 MG/DL (8.5-10.1); CARBON DIOXIDE 23 MMOL/L (21-32); CHLORIDE 107 MMOL/L (98-107); CREATININE 0.2 MG/DL (0.55-1.30); POTASSIUM 4.5 MMOL/L (3.5-5.1); SODIUM 141 MMOL/L (136-145)
--- NOTE | 2018-04-25 11:36 | Infectious Diseases Prog Note ---
Assessment/Plan Assessment/Plan A; Cholecystitis s/p laparoscopic cholecystectomy Colitis MRSA colonization Positive blood culture likely contamination ALS VDRF P: Continue Zosyn & Flagyl Will f/u cultures Subjective ROS Limited/Unobtainable: Yes Musculoskeletal: Reports: pain, other - surgical site Allergies: Coded Allergies: No Known Allergies (Unverified , 04/08/18) Objective Vital Signs Last 24 Hour Vital Signs Date Time Temp Pulse Resp B/P (MAP) Pulse Ox O2 Delivery O2 Flow Rate FiO2 04/25/18 10:45 97.3 04/25/18 10:04 97.3 04/25/18 08:00 97.3 68 14 125/74 99 Mechanical Ventilator 30 97.3 04/25/18 08:00 70 04/25/18 08:00 30 04/25/18 07:27 89 17 100 Mechanical Ventilator 30 04/25/18 07:18 30 04/25/18 07:17 88 15 98 Mechanical Ventilator 30 04/25/18 07:16 84 15 30 04/25/18 05:10 81 14 30 04/25/18 04:00 67 04/25/18 04:00 30 04/25/18 03:05 85 15 30 04/25/18 01:21 30 04/25/18 01:21 76 20 99 Mechanical Ventilator 30 04/25/18 01:04 62 15 98 Mechanical Ventilator 30 04/25/18 01:03 85 15 30 04/25/18 00:00 98.7 68 16 114/70 100 Mechanical Ventilator 30 98.7 04/25/18 00:00 67 04/24/18 23:06 67 15 30 04/24/18 21:15 85 15 30 04/24/18 20:00 30 04/24/18 20:00 62 04/24/18 20:00 98.9 79 18 134/67 100 Mechanical Ventilator 30 98.9 04/24/18 19:19 65 20 99 Mechanical Ventilator 30 04/24/18 19:18 30 04/24/18 19:09 62 15 99 Mechanical Ventilator 30 04/24/18 19:01 62 15 30 04/24/18 18:42 97.9 04/24/18 17:32 97.9 04/24/18 17:11 61 14 30 04/24/18 16:00 73 04/24/18 16:00 97.9 78 16 134/80 100 Mechanical Ventilator 30 97.9 04/24/18 16:00 30 04/24/18 14:48 80 15 30 04/24/18 13:49 82 20 100 Mechanical Ventilator 30 04/24/18 13:40 30 04/24/18 13:39 82 15 99 Mechanical Ventilator 21 04/24/18 13:10 82 15 30 04/24/18 12:00 30 04/24/18 11:59 98.2 75 26 137/75 100 Mechanical Ventilator 30 98.2 04/24/18 11:53 98.8 04/24/18 11:46 80 Height (Feet): 5 Height (Inches): 8.00 Weight (Pounds): 125 HEENT: status post trach Respiratory/Chest: lungs clear, other - on ventilator Cardiovascular: normal rate, other - left arm PICC line Abdomen: soft, non tender Extremities: no edema Neurologic/Psychiatric: alert, responsive Laboratory Tests Test 04/25/18 03:40 04/25/18 10:45 White Blood Count 11.6 K/UL (4.8-10.8) H Red Blood Count 2.87 M/UL (4.70-6.10) L Hemoglobin 8.8 G/DL (14.2-18.0) L Hematocrit 26.6 % (42.0-52.0) L Mean Corpuscular Volume 93 FL (80-99) Mean Corpuscular Hemoglobin 30.7 PG (27.0-31.0) Mean Corpuscular Hemoglobin Concent 33.1 G/DL (32.0-36.0) Red Cell Distribution Width 12.7 % (11.6-14.8) Platelet Count 305 K/UL (150-450) Mean Platelet Volume 6.8 FL (6.5-10.1) Neutrophils (%) (Auto) 73.6 % (45.0-75.0) Lymphocytes (%) (Auto) 12.5 % (20.0-45.0) L Monocytes (%) (Auto) 10.9 % (1.0-10.0) H Eosinophils (%) (Auto) 2.0 % (0.0-3.0) Basophils (%) (Auto) 1.1 % (0.0-2.0) Sodium Level 139 MMOL/L (136-145) 141 MMOL/L (136-145) Potassium Level 2.7 MMOL/L (3.5-5.1) *L 4.5 MMOL/L (3.5-5.1) # Chloride Level 106 MMOL/L (98-107) 107 MMOL/L (98-107) Carbon Dioxide Level 24 MMOL/L (21-32) 23 MMOL/L (21-32) Anion Gap 9 mmol/L (5-15) 11 mmol/L (5-15) Blood Urea Nitrogen 5 mg/dL (7-18) L 6 mg/dL (7-18) L Creatinine 0.3 MG/DL (0.55-1.30) L 0.2 MG/DL (0.55-1.30) L Estimat Glomerular Filtration Rate > 60 mL/min (>60) > 60 mL/min (>60) Glucose Level 154 MG/DL (74-106) H 101 MG/DL (74-106) Calcium Level 8.4 MG/DL (8.5-10.1) L 8.5 MG/DL (8.5-10.1) Total Bilirubin 0.5 MG/DL (0.2-1.0) Aspartate Amino Transf (AST/SGOT) 12 U/L (15-37) L Alanine Aminotransferase (ALT/SGPT) 24 U/L (12-78) Alkaline Phosphatase 45 U/L (46-116) L Total Protein 6.9 G/DL (6.4-8.2) Albumin 2.6 G/DL (3.4-5.0) L Globulin 4.3 g/dL Albumin/Globulin Ratio 0.6 (1.0-2.7) L Current Medications Medications (Trade) Dose Ordered Sig/Markel Route PRN Reason Start Time Stop Time Status Last Admin Dose Admin Acetaminophen (Tylenol) 650 mg Q4H PRN ORAL Prn mild pain/Temp > 101 04/09/18 07:00 05/09/18 06:59 04/10/18 22:48 Acetylcysteine (Mucomyst) 100 mg Q6HRT HHN 04/12/18 13:00 05/09/18 09:59 04/25/18 01:03 Al Hydroxide/Mg Hydroxide (Mylanta) 30 ml Q4H PRN GT Abdominal cramps 04/09/18 07:00 05/09/18 06:59 Albuterol/ Ipratropium (Albuterol/ Ipratropium) 3 ml Q6HRT HHN 04/20/18 13:00 04/25/18 12:59 04/25/18 07:17 Baclofen (Lioresal) 10 mg THREE TIMES A DAY ORAL 04/09/18 09:00 05/09/18 08:59 04/25/18 10:05 Chlorhexidine Gluconate (Yuridia-Hex 2%) 1 applic DAILY@2000 TOPIC 04/21/18 20:00 05/21/18 19:59 04/24/18 20:10 Dextrose (Dextrose 50%) 25 ml STAT PRN IV Hypoglycemia 04/09/18 07:00 05/09/18 06:59 Dextrose (Dextrose 50%) 50 ml STAT PRN IV Hypoglycemia 04/09/18 07:00 05/09/18 06:59 Diphenhydramine HCl (Benadryl Cream) 1 applic THREE TIMES A DAY PRN TOPIC Itching 04/20/18 21:45 05/20/18 21:44 04/20/18 22:04 Diphenhydramine HCl (Benadryl) 25 mg Q6H PRN IVP Itching 04/11/18 11:00 05/11/18 10:59 04/23/18 00:13 Docusate Sodium (Colace) 100 mg TWICE A DAY NG 04/22/18 18:00 05/22/18 17:59 04/25/18 10:04 Hydromorphone HCl (Dilaudid) 4 mg Q2H PRN GT Severe Pain (Pain Scale 7-10) 04/22/18 18:30 04/29/18 18:29 04/25/18 05:51 Ketorolac Tromethamine (Toradol 30mg) 15 mg Q6H PRN IV breakthrough pain (1-7) 04/22/18 18:30 04/27/18 18:29 04/23/18 08:02 Magnesium Hydroxide (Mom) 30 ml HSPRN PRN ORAL Constipation 04/09/18 07:00 05/09/18 06:59 Metronidazole (Flagyl) 500 mg Q8HR ORAL 04/19/18 14:00 04/26/18 13:59 04/25/18 05:36 Mineral Oil (Fleet's Mineral Oil Enema) 133 ml DAILYPRN PRN RECTAL Constipation 04/10/18 06:45 05/10/18 06:44 Morphine Sulfate (Morphine Sulfate) 4 mg Q4H PRN IVP Severe Breakthru Pain (>7) 04/22/18 18:30 04/29/18 18:29 04/25/18 10:04 Pantoprazole (Protonix) 40 mg DAILY IVP 04/09/18 09:00 05/09/18 08:59 04/25/18 10:04 Piperacillin Sod/ Tazobactam Sod 3.375 gm/Dextrose 110 ml @ 27.5 mls/hr EVERY 8 HOURS IVPB 04/19/18 15:00 04/29/18 14:59 04/25/18 05:36 Polyethylene Glycol (Miralax) 17 gm BEDTIME ORAL 04/25/18 21:00 05/25/18 20:59 Venlafaxine HCl (Effexor) 25 mg Q12HR GT 04/09/18 21:00 05/09/18 08:59 04/25/18 10:04 Zolpidem Tartrate (Ambien) 5 mg HSPRN PRN ORAL Insomnia 04/23/18 21:00 04/30/18 20:59 04/25/18 02:02 Zolpidem Tartrate (Ambien) 10 mg HSPRN PRN ORAL Insomnia 04/23/18 21:00 04/30/18 20:59 04/24/18 21:52 Richard Lerma MD Apr 25, 2018 11:36
[2018-04-25 12:00] VITALS: BP 113/73
--- NOTE | 2018-04-25 15:25 | General Progress Note ---
Progress Note Progress Note Surgery doing well. no acute events. comfortable. on vent. abd soft, nt/nd, incisions c/d/i leukocytosis resolving. labs okay -okay from surgical standpoint for d/c Bry Fish Apr 25, 2018 15:25
[2018-04-25 16:00] VITALS: BP 96/63
[2018-04-25 20:00] VITALS: BP 100/61
[2018-04-25] MEDS: Dyna-Hex 2% Top Sol 2oz TOPIC SCH (20:04)
[2018-04-25] MEDS: Miralax 17gm pkt ORAL SCH ×2 (21:30→21:34)
[2018-04-26] VITALS: BP 100/65
[2018-04-26] MEDS: Albuterol/Ipratropium 3ml neb HHN SCH ×4 (01:09→19:10)
[2018-04-26] MEDS: Zolpidem 5mg tab ORAL PRN ×2 (01:38→22:07)
[2018-04-26 04:00] VITALS: BP 110/66
[2018-04-26 05:06] LABS: BASOPHILS % (AUTO) 1.1 % (0.0-2.0); EOSINOPHILS % (AUTO) 2.8 % (0.0-3.0); HEMOGLOBIN 8.7 G/DL (14.2-18.0); LYMPHOCYTES % (AUTO) 15.7 % (20.0-45.0); MEAN CORPUSCULAR VOLUME 93 FL (80-99); MONOCYTES % (AUTO) 10.6 % (1.0-10.0); NEUTROPHILS % (AUTO) 69.8 % (45.0-75.0); PLATELET COUNT 314 K/UL (150-450); RED CELL DISTRIBUTION WIDTH 12.8 % (11.6-14.8); WHITE BLOOD COUNT 9.9 K/UL (4.8-10.8)
[2018-04-26 05:13] LABS: ANION GAP 10 mmol/L (5-15); BLOOD UREA NITROGEN 5 mg/dL (7-18); CALCIUM 8.6 MG/DL (8.5-10.1); CARBON DIOXIDE 24 MMOL/L (21-32); CHLORIDE 107 MMOL/L (98-107); CREATININE 0.3 MG/DL (0.55-1.30); POTASSIUM 3.4 MMOL/L (3.5-5.1); SODIUM 141 MMOL/L (136-145)
[2018-04-26] MEDS: Piperacillin/Tazobactam 3.375 GM in D5W 110 ML IVPB SCH (05:40)
[2018-04-26] MEDS: metroNIDAZOLE 500mg tab ORAL SCH (05:40)
[2018-04-26 08:00] VITALS: BP 93/60
[2018-04-26] MEDS: Pantoprazole Inj IVP SCH (09:43)
[2018-04-26] MEDS: Docusate 100mg/10ml Liq NG SCH ×2 (09:43→18:06)
[2018-04-26] MEDS: Venlafaxine 25mg tab GT SCH ×2 (09:43→20:25)
--- NOTE | 2018-04-26 09:44 | General Progress Note ---
Assessment/Plan Problem List: (1) Abdominal pain ICD Codes: R10.9 - Unspecified abdominal pain SNOMED: 38759102 Qualifiers: Qualified Codes: R10.13 - Epigastric pain (2) UGIB (upper gastrointestinal bleed) ICD Codes: K92.2 - Gastrointestinal hemorrhage, unspecified SNOMED: 71726758 (3) Tracheostomy dependent ICD Codes: Z93.0 - Tracheostomy status SNOMED: 756528508, 565891585 (4) ALS (amyotrophic lateral sclerosis) ICD Codes: G12.21 - Amyotrophic lateral sclerosis SNOMED: 99000725 Assessment/Plan post op care fu labs pain control repeat labs in am bowel regimen Subjective ROS Limited/Unobtainable: Yes Allergies: Coded Allergies: No Known Allergies (Unverified , 04/08/18) Objective Last 24 Hour Vital Signs Date Time Temp Pulse Resp B/P (MAP) Pulse Ox O2 Delivery O2 Flow Rate FiO2 04/26/18 09:11 84 14 30 04/26/18 08:00 62 04/26/18 08:00 98.3 61 13 93/60 98 Mechanical Ventilator 30 98.3 04/26/18 08:00 30 04/26/18 07:44 80 15 100 Mechanical Ventilator 30 04/26/18 07:32 30 04/26/18 07:31 76 14 99 Mechanical Ventilator 30 04/26/18 07:29 76 14 30 04/26/18 04:48 80 16 30 04/26/18 04:00 98.9 68 14 110/66 100 Mechanical Ventilator 30 98.9 04/26/18 04:00 30 04/26/18 04:00 67 04/26/18 02:33 77 15 30 04/26/18 01:10 72 14 100 Mechanical Ventilator 30 04/26/18 01:02 79 14 30 04/26/18 01:00 30 04/26/18 01:00 77 14 99 Mechanical Ventilator 30 04/26/18 00:00 66 04/26/18 00:00 98.6 66 14 100/65 100 Mechanical Ventilator 30 98.6 04/26/18 00:00 30 04/25/18 23:17 81 14 30 04/25/18 21:27 80 17 30 04/25/18 20:00 98.9 67 14 100/61 100 Mechanical Ventilator 30 98.9 04/25/18 20:00 71 04/25/18 20:00 30 04/25/18 19:29 79 15 100 Mechanical Ventilator 30 04/25/18 19:24 71 15 30 04/25/18 19:24 79 15 99 Mechanical Ventilator 30 04/25/18 19:24 30 04/25/18 17:24 69 14 30 04/25/18 16:00 66 04/25/18 16:00 98.6 66 14 96/63 100 Mechanical Ventilator 30 98.6 04/25/18 16:00 30 04/25/18 15:17 79 14 30 04/25/18 15:13 98.1 04/25/18 13:49 98.1 04/25/18 12:52 77 14 100 Mechanical Ventilator 30 04/25/18 12:43 30 04/25/18 12:42 77 14 99 Mechanical Ventilator 30 04/25/18 12:40 77 14 30 04/25/18 12:00 30 04/25/18 12:00 74 04/25/18 12:00 98.1 87 15 113/73 100 Mechanical Ventilator 30 98.1 04/25/18 10:45 97.3 04/25/18 10:32 85 15 30 04/25/18 10:04 97.3 Intake and Output 04/25/18 04/26/18 19:00 07:00 Intake Total 575.0 ml 262.5 ml Output Total 900 ml 450 ml Balance -325.0 ml -187.5 ml IV Total 110.0 ml 137.5 ml Tube Feeding 375 ml 125 ml Other 90 ml Output Urine Total 900 ml 450 ml # Voids 3 3 # Bowel Movements 2 Laboratory Tests 04/25/18 10:45: Sodium Level 141, Potassium Level 4.5#, Chloride Level 107, Carbon Dioxide Level 23, Anion Gap 11, Blood Urea Nitrogen 6L, Creatinine 0.2L, Estimat Glomerular Filtration Rate > 60, Glucose Level 101, Calcium Level 8.5 04/26/18 03:40: Sodium Level 141, Potassium Level 3.4L, Chloride Level 107, Carbon Dioxide Level 24, Anion Gap 10, Blood Urea Nitrogen 5L, Creatinine 0.3L, Estimat Glomerular Filtration Rate > 60, Glucose Level 124H, Calcium Level 8.6, White Blood Count 9.9, Red Blood Count 2.80L, Hemoglobin 8.7L, Hematocrit 26.0L, Mean Corpuscular Volume 93, Mean Corpuscular Hemoglobin 31.2H, Mean Corpuscular Hemoglobin Concent 33.5, Red Cell Distribution Width 12.8, Platelet Count 314, Mean Platelet Volume 7.4, Neutrophils (%) (Auto) 69.8, Lymphocytes (%) (Auto) 15.7L, Monocytes (%) (Auto) 10.6H, Eosinophils (%) (Auto) 2.8, Basophils (%) ( Auto) 1.1 Height (Feet): 5 Height (Inches): 8.00 Weight (Pounds): 125 General Appearance: alert EENT: normal ENT inspection Neck: supple Cardiovascular: normal rate Respiratory/Chest: decreased breath sounds Abdomen: normal bowel sounds, soft Extremities: non-tender Niraj Avalos MD Apr 26, 2018 09:44
[2018-04-26] MEDS: HYDROmorphone 4mg tab GT PRN ×2 (09:54→22:06)
--- NOTE | 2018-04-26 10:37 | Infectious Diseases Prog Note ---
Assessment/Plan Assessment/Plan antibiotics : zosyn, flagyl A 1. colitis 2. cholecystitis s/p lap cholecystectomy 3. leucocytosis resolved 4. ALS 5. respiratory failure 6. MRSA pneumonia s/p rx 7. + blood cultures with coag neg staph likely contaminated P 1. d/c zosyn, flagyl 2. observe off antibiotics Subjective ROS Limited/Unobtainable: Yes Allergies: Coded Allergies: No Known Allergies (Unverified , 04/08/18) Objective Vital Signs Last 24 Hour Vital Signs Date Time Temp Pulse Resp B/P (MAP) Pulse Ox O2 Delivery O2 Flow Rate FiO2 04/26/18 09:54 98.3 04/26/18 09:11 84 14 30 04/26/18 08:00 62 04/26/18 08:00 98.3 61 13 93/60 98 Mechanical Ventilator 30 98.3 04/26/18 08:00 30 04/26/18 07:44 80 15 100 Mechanical Ventilator 30 04/26/18 07:32 30 04/26/18 07:31 76 14 99 Mechanical Ventilator 30 04/26/18 07:29 76 14 30 04/26/18 04:48 80 16 30 04/26/18 04:00 98.9 68 14 110/66 100 Mechanical Ventilator 30 98.9 04/26/18 04:00 30 04/26/18 04:00 67 04/26/18 02:33 77 15 30 04/26/18 01:10 72 14 100 Mechanical Ventilator 30 04/26/18 01:02 79 14 30 04/26/18 01:00 30 04/26/18 01:00 77 14 99 Mechanical Ventilator 30 04/26/18 00:00 66 04/26/18 00:00 98.6 66 14 100/65 100 Mechanical Ventilator 30 98.6 04/26/18 00:00 30 04/25/18 23:17 81 14 30 04/25/18 21:27 80 17 30 04/25/18 20:00 98.9 67 14 100/61 100 Mechanical Ventilator 30 98.9 04/25/18 20:00 71 04/25/18 20:00 30 04/25/18 19:29 79 15 100 Mechanical Ventilator 30 04/25/18 19:24 71 15 30 04/25/18 19:24 79 15 99 Mechanical Ventilator 30 04/25/18 19:24 30 04/25/18 17:24 69 14 30 04/25/18 16:00 66 04/25/18 16:00 98.6 66 14 96/63 100 Mechanical Ventilator 30 98.6 04/25/18 16:00 30 04/25/18 15:17 79 14 30 04/25/18 15:13 98.1 04/25/18 13:49 98.1 04/25/18 12:52 77 14 100 Mechanical Ventilator 30 04/25/18 12:43 30 04/25/18 12:42 77 14 99 Mechanical Ventilator 30 04/25/18 12:40 77 14 30 04/25/18 12:00 30 04/25/18 12:00 74 04/25/18 12:00 98.1 87 15 113/73 100 Mechanical Ventilator 30 98.1 04/25/18 10:45 97.3 Height (Feet): 5 Height (Inches): 8.00 Weight (Pounds): 125 HEENT: status post trach Respiratory/Chest: lungs clear Cardiovascular: normal rate, regular rhythm, no gallop/murmur Abdomen: soft, non tender, other - GT Extremities: other - + edema Laboratory Tests Test 04/25/18 10:45 04/26/18 03:40 Sodium Level 141 MMOL/L (136-145) 141 MMOL/L (136-145) Potassium Level 4.5 MMOL/L (3.5-5.1) # 3.4 MMOL/L (3.5-5.1) L Chloride Level 107 MMOL/L (98-107) 107 MMOL/L (98-107) Carbon Dioxide Level 23 MMOL/L (21-32) 24 MMOL/L (21-32) Anion Gap 11 mmol/L (5-15) 10 mmol/L (5-15) Blood Urea Nitrogen 6 mg/dL (7-18) L 5 mg/dL (7-18) L Creatinine 0.2 MG/DL (0.55-1.30) L 0.3 MG/DL (0.55-1.30) L Estimat Glomerular Filtration Rate > 60 mL/min (>60) > 60 mL/min (>60) Glucose Level 101 MG/DL (74-106) 124 MG/DL (74-106) H Calcium Level 8.5 MG/DL (8.5-10.1) 8.6 MG/DL (8.5-10.1) White Blood Count 9.9 K/UL (4.8-10.8) Red Blood Count 2.80 M/UL (4.70-6.10) L Hemoglobin 8.7 G/DL (14.2-18.0) L Hematocrit 26.0 % (42.0-52.0) L Mean Corpuscular Volume 93 FL (80-99) Mean Corpuscular Hemoglobin 31.2 PG (27.0-31.0) H Mean Corpuscular Hemoglobin Concent 33.5 G/DL (32.0-36.0) Red Cell Distribution Width 12.8 % (11.6-14.8) Platelet Count 314 K/UL (150-450) Mean Platelet Volume 7.4 FL (6.5-10.1) Neutrophils (%) (Auto) 69.8 % (45.0-75.0) Lymphocytes (%) (Auto) 15.7 % (20.0-45.0) L Monocytes (%) (Auto) 10.6 % (1.0-10.0) H Eosinophils (%) (Auto) 2.8 % (0.0-3.0) Basophils (%) (Auto) 1.1 % (0.0-2.0) Current Medications Medications (Trade) Dose Ordered Sig/Markel Route PRN Reason Start Time Stop Time Status Last Admin Dose Admin Acetaminophen (Tylenol) 650 mg Q4H PRN ORAL Prn mild pain/Temp > 101 04/09/18 07:00 05/09/18 06:59 04/10/18 22:48 Acetylcysteine (Mucomyst) 100 mg Q6HRT N 04/12/18 13:00 05/09/18 09:59 04/26/18 07:33 Al Hydroxide/Mg Hydroxide (Mylanta) 30 ml Q4H PRN GT Abdominal cramps 04/09/18 07:00 05/09/18 06:59 Albuterol/ Ipratropium (Albuterol/ Ipratropium) 3 ml Q6HRT N 04/26/18 01:00 05/01/18 00:59 04/26/18 07:33 Baclofen (Lioresal) 10 mg THREE TIMES A DAY ORAL 04/09/18 09:00 05/09/18 08:59 04/26/18 09:44 Chlorhexidine Gluconate (Yuridia-Hex 2%) 1 applic DAILY@2000 TOPIC 04/21/18 20:00 05/21/18 19:59 04/25/18 20:04 Dextrose (Dextrose 50%) 25 ml STAT PRN IV Hypoglycemia 04/09/18 07:00 05/09/18 06:59 Dextrose (Dextrose 50%) 50 ml STAT PRN IV Hypoglycemia 04/09/18 07:00 05/09/18 06:59 Diphenhydramine HCl (Benadryl Cream) 1 applic THREE TIMES A DAY PRN TOPIC Itching 04/20/18 21:45 05/20/18 21:44 04/20/18 22:04 Diphenhydramine HCl (Benadryl) 25 mg Q6H PRN IVP Itching 04/11/18 11:00 05/11/18 10:59 04/23/18 00:13 Docusate Sodium (Colace) 100 mg TWICE A DAY NG 04/22/18 18:00 05/22/18 17:59 04/26/18 09:43 Hydromorphone HCl (Dilaudid) 4 mg Q2H PRN GT Severe Pain (Pain Scale 7-10) 04/22/18 18:30 04/29/18 18:29 04/26/18 09:54 Ketorolac Tromethamine (Toradol 30mg) 15 mg Q6H PRN IV breakthrough pain (1-7) 04/22/18 18:30 04/27/18 18:29 04/23/18 08:02 Magnesium Hydroxide (Mom) 30 ml HSPRN PRN ORAL Constipation 04/09/18 07:00 05/09/18 06:59 Metronidazole (Flagyl) 500 mg Q8HR ORAL 04/19/18 14:00 05/03/18 13:59 04/26/18 05:40 Mineral Oil (Fleet's Mineral Oil Enema) 133 ml DAILYPRN PRN RECTAL Constipation 04/10/18 06:45 05/10/18 06:44 Morphine Sulfate (Morphine Sulfate) 4 mg Q4H PRN IVP Severe Breakthru Pain (>7) 04/22/18 18:30 04/29/18 18:29 04/25/18 10:04 Pantoprazole (Protonix) 40 mg DAILY IVP 04/09/18 09:00 05/09/18 08:59 04/26/18 09:43 Piperacillin Sod/ Tazobactam Sod 3.375 gm/Dextrose 110 ml @ 27.5 mls/hr EVERY 8 HOURS IVPB 04/19/18 15:00 04/29/18 14:59 04/26/18 05:40 Polyethylene Glycol (Miralax) 17 gm BEDTIME ORAL 04/25/18 21:00 05/25/18 20:59 Venlafaxine HCl (Effexor) 25 mg Q12HR GT 04/09/18 21:00 05/09/18 08:59 04/26/18 09:43 Zolpidem Tartrate (Ambien) 5 mg HSPRN PRN ORAL Insomnia 04/23/18 21:00 04/30/18 20:59 04/26/18 01:38 Zolpidem Tartrate (Ambien) 10 mg HSPRN PRN ORAL Insomnia 04/23/18 21:00 04/30/18 20:59 04/25/18 21:56 TRINO CURIEL Apr 26, 2018 10:37
[2018-04-26 12:00] VITALS: BP 122/69
[2018-04-26] MEDS ORDERED: NS 500ML ONE (14:54)
[2018-04-26] MEDS ORDERED: Tubing IV Secondary IV ONE (14:54)
[2018-04-26 16:00] VITALS: BP 95/78
--- NOTE | 2018-04-26 16:30 | General Progress Note ---
Progress Note Progress Note Surgery: doing well. afebrile, HD stable, leukocytosis resolved. abd benign. wounds c/d/i. okay to d/c from surgical standpoint Bry Fish Apr 26, 2018 16:30
--- NOTE | 2018-04-26 17:11 | General Progress Note ---
Assessment/Plan Assessment/Plan IMPRESSION gastritis trach gallstones anemia ALS leukocytosis staph bacteremia s/p isabel PLAN ID eval and antibiotics off post op care as is ok to dc per all dc planning will have CM assist Subjective Allergies: Coded Allergies: No Known Allergies (Unverified , 04/08/18) Subjective low K comfortable labs noted off antibiotics Objective Last 24 Hour Vital Signs Date Time Temp Pulse Resp B/P (MAP) Pulse Ox O2 Delivery O2 Flow Rate FiO2 04/26/18 16:59 66 14 30 04/26/18 16:00 98.0 67 14 95/78 100 Mechanical Ventilator 30 98.0 04/26/18 16:00 79 04/26/18 16:00 30 04/26/18 15:06 62 15 30 04/26/18 13:01 58 15 99 Mechanical Ventilator 30 04/26/18 12:46 57 15 98 Mechanical Ventilator 30 04/26/18 12:46 30 04/26/18 12:44 57 15 30 04/26/18 12:00 30 04/26/18 12:00 98.1 65 14 122/69 100 Mechanical Ventilator 30 98.1 04/26/18 12:00 59 04/26/18 11:15 98.3 04/26/18 11:01 79 15 30 04/26/18 09:54 98.3 04/26/18 09:11 84 14 30 04/26/18 08:00 62 04/26/18 08:00 98.3 61 13 93/60 98 Mechanical Ventilator 30 98.3 04/26/18 08:00 30 04/26/18 07:44 80 15 100 Mechanical Ventilator 30 04/26/18 07:32 30 04/26/18 07:31 76 14 99 Mechanical Ventilator 30 04/26/18 07:29 76 14 30 04/26/18 04:48 80 16 30 04/26/18 04:00 98.9 68 14 110/66 100 Mechanical Ventilator 30 98.9 04/26/18 04:00 30 04/26/18 04:00 67 04/26/18 02:33 77 15 30 04/26/18 01:10 72 14 100 Mechanical Ventilator 30 04/26/18 01:02 79 14 30 04/26/18 01:00 30 04/26/18 01:00 77 14 99 Mechanical Ventilator 30 04/26/18 00:00 66 04/26/18 00:00 98.6 66 14 100/65 100 Mechanical Ventilator 30 98.6 04/26/18 00:00 30 04/25/18 23:17 81 14 30 04/25/18 21:27 80 17 30 04/25/18 20:00 98.9 67 14 100/61 100 Mechanical Ventilator 30 98.9 04/25/18 20:00 71 04/25/18 20:00 30 04/25/18 19:29 79 15 100 Mechanical Ventilator 30 04/25/18 19:24 71 15 30 04/25/18 19:24 79 15 99 Mechanical Ventilator 30 04/25/18 19:24 30 04/25/18 17:24 69 14 30 Intake and Output 04/25/18 04/26/18 19:00 07:00 Intake Total 575.0 ml 262.5 ml Output Total 900 ml 450 ml Balance -325.0 ml -187.5 ml IV Total 110.0 ml 137.5 ml Tube Feeding 375 ml 125 ml Other 90 ml Output Urine Total 900 ml 450 ml # Voids 3 3 # Bowel Movements 2 Laboratory Tests 04/26/18 03:40: White Blood Count 9.9, Red Blood Count 2.80L, Hemoglobin 8.7L, Hematocrit 26.0L , Mean Corpuscular Volume 93, Mean Corpuscular Hemoglobin 31.2H, Mean Corpuscular Hemoglobin Concent 33.5, Red Cell Distribution Width 12.8, Platelet Count 314, Mean Platelet Volume 7.4, Neutrophils (%) (Auto) 69.8, Lymphocytes (% ) (Auto) 15.7L, Monocytes (%) (Auto) 10.6H, Eosinophils (%) (Auto) 2.8, Basophils (%) (Auto) 1.1, Sodium Level 141, Potassium Level 3.4L, Chloride Level 107, Carbon Dioxide Level 24, Anion Gap 10, Blood Urea Nitrogen 5L, Creatinine 0.3L, Estimat Glomerular Filtration Rate > 60, Glucose Level 124H, Calcium Level 8.6 Height (Feet): 5 Height (Inches): 8.00 Weight (Pounds): 125 Objective WDWN NAD clear breath sounds bilaterally without rhonchi or wheeze [id number] without MRG NABS GT in place no CCE quad trach Bob Cassidy MD Apr 26, 2018 17:11
[2018-04-26] MEDS: Morphine Sulfate 4mg/ml Inj IVP PRN (18:06)
[2018-04-26 20:00] VITALS: BP 120/79
[2018-04-26] MEDS: Miralax 17gm pkt ORAL SCH (20:24)
[2018-04-26] MEDS: Dyna-Hex 2% Top Sol 2oz TOPIC SCH (20:25)
[2018-04-27] VITALS: BP 99/75
[2018-04-27] MEDS: HYDROmorphone 4mg tab GT PRN ×4 (02:00→14:06)
[2018-04-27] MEDS: Zolpidem 5mg tab ORAL PRN (02:01)
[2018-04-27 04:00] VITALS: BP 111/70
[2018-04-27 06:10] LABS: BASOPHILS % (AUTO) 1.3 % (0.0-2.0); EOSINOPHILS % (AUTO) 3.9 % (0.0-3.0); HEMATOCRIT 27.3 % (42.0-52.0); HEMOGLOBIN 8.9 G/DL (14.2-18.0); LYMPHOCYTES % (AUTO) 19.2 % (20.0-45.0); MEAN CORPUSCULAR VOLUME 94 FL (80-99); MONOCYTES % (AUTO) 8.6 % (1.0-10.0); PLATELET COUNT 325 K/UL (150-450); RED BLOOD COUNT 2.91 M/UL (4.70-6.10); RED CELL DISTRIBUTION WIDTH 13.1 % (11.6-14.8); WHITE BLOOD COUNT 9.8 K/UL (4.8-10.8)
[2018-04-27 06:43] LABS: ANION GAP 12 mmol/L (5-15); BLOOD UREA NITROGEN 5 mg/dL (7-18); CALCIUM 8.8 MG/DL (8.5-10.1); CARBON DIOXIDE 23 MMOL/L (21-32); CHLORIDE 107 MMOL/L (98-107); CREATININE 0.3 MG/DL (0.55-1.30); POTASSIUM 3.6 MMOL/L (3.5-5.1); SODIUM 141 MMOL/L (136-145)
[2018-04-27] MEDS: Albuterol/Ipratropium 3ml neb HHN SCH ×3 (07:00→12:41)
[2018-04-27 08:40] VITALS: BP 135/79
[2018-04-27] MEDS: Docusate 100mg/10ml Liq NG SCH (09:51)
[2018-04-27] MEDS: Pantoprazole Inj IVP SCH (09:52)
[2018-04-27] MEDS: Venlafaxine 25mg tab GT SCH (09:52)
--- NOTE | 2018-04-27 10:34 | General Progress Note ---
Assessment/Plan Assessment/Plan IMPRESSION gastritis trach gallstones anemia ALS leukocytosis staph bacteremia s/p isabel PLAN ID eval and antibiotics off dc today stable norco given for pain Subjective ROS Limited/Unobtainable: Yes Allergies: Coded Allergies: No Known Allergies (Unverified , 04/08/18) Subjective cleared by all consultants patient wants to go home does not want HH Objective Last 24 Hour Vital Signs Date Time Temp Pulse Resp B/P (MAP) Pulse Ox O2 Delivery O2 Flow Rate FiO2 04/27/18 09:23 63 14 30 04/27/18 08:40 97.7 70 14 135/79 100 Mechanical Ventilator 30 97.7 04/27/18 08:00 30 04/27/18 08:00 80 04/27/18 07:08 65 14 100 Mechanical Ventilator 30 04/27/18 07:05 65 14 30 04/27/18 06:58 65 14 100 Mechanical Ventilator 30 04/27/18 06:58 30 04/27/18 05:00 64 14 30 04/27/18 04:00 64 04/27/18 04:00 30 04/27/18 04:00 96.8 66 20 111/70 97 Mechanical Ventilator 30 96.8 04/27/18 02:59 96.4 04/27/18 02:45 68 14 30 04/27/18 01:22 65 15 100 Mechanical Ventilator 30 04/27/18 01:10 63 14 100 Mechanical Ventilator 30 04/27/18 01:10 63 14 30 04/27/18 01:10 30 04/27/18 00:00 96.4 73 19 99/75 100 Mechanical Ventilator 30 96.4 04/27/18 00:00 62 04/27/18 00:00 30 04/26/18 23:20 89 14 30 04/26/18 21:06 76 16 30 04/26/18 20:00 96.6 78 19 120/79 99 Mechanical Ventilator 30 96.6 04/26/18 20:00 30 04/26/18 20:00 62 04/26/18 19:20 74 14 100 Mechanical Ventilator 30 04/26/18 19:10 30 04/26/18 19:10 73 14 100 Mechanical Ventilator 30 04/26/18 19:10 73 14 30 04/26/18 19:05 98.0 04/26/18 18:06 98.0 04/26/18 16:59 66 14 30 04/26/18 16:00 98.0 67 14 95/78 100 Mechanical Ventilator 30 98.0 04/26/18 16:00 79 04/26/18 16:00 30 04/26/18 15:06 62 15 30 04/26/18 13:01 58 15 99 Mechanical Ventilator 30 04/26/18 12:46 57 15 98 Mechanical Ventilator 30 04/26/18 12:46 30 04/26/18 12:44 57 15 30 04/26/18 12:00 30 04/26/18 12:00 98.1 65 14 122/69 100 Mechanical Ventilator 30 98.1 04/26/18 12:00 59 04/26/18 11:01 79 15 30 Intake and Output 04/26/18 04/27/18 19:00 07:00 Intake Total 215 ml Output Total 600 ml Balance -385 ml Tube Feeding 125 ml Other 90 ml Output Urine Total 600 ml # Voids 2 1 Laboratory Tests 04/27/18 04:00: White Blood Count 9.8, Red Blood Count 2.91L, Hemoglobin 8.9L, Hematocrit 27.3L , Mean Corpuscular Volume 94, Mean Corpuscular Hemoglobin 30.5, Mean Corpuscular Hemoglobin Concent 32.5, Red Cell Distribution Width 13.1, Platelet Count 325, Mean Platelet Volume 7.0, Neutrophils (%) (Auto) 67.0, Lymphocytes (% ) (Auto) 19.2L, Monocytes (%) (Auto) 8.6, Eosinophils (%) (Auto) 3.9H, Basophils (%) (Auto) 1.3, Sodium Level 141, Potassium Level 3.6, Chloride Level 107, Carbon Dioxide Level 23, Anion Gap 12, Blood Urea Nitrogen 5L, Creatinine 0.3L, Estimat Glomerular Filtration Rate > 60, Glucose Level 86, Calcium Level 8.8 Height (Feet): 5 Height (Inches): 8.00 Weight (Pounds): 125 Objective WDWN NAD clear breath sounds bilaterally without rhonchi or wheeze [id number] without MRG NABS GT in place no CCE quad trach Bob Cassidy MD Apr 27, 2018 10:34
--- NOTE | 2018-04-27 11:05 | Infectious Diseases Prog Note ---
Assessment/Plan Assessment/Plan antibiotics : none A 1. colitis 2. cholecystitis s/p lap cholecystectomy 3. leucocytosis resolved 4. ALS 5. respiratory failure 6. MRSA pneumonia s/p rx 7. + blood cultures with coag neg staph likely contaminated P 1. observe off antibiotics Subjective ROS Limited/Unobtainable: Yes Allergies: Coded Allergies: No Known Allergies (Unverified , 04/08/18) Objective Vital Signs Last 24 Hour Vital Signs Date Time Temp Pulse Resp B/P (MAP) Pulse Ox O2 Delivery O2 Flow Rate FiO2 04/27/18 09:23 63 14 30 04/27/18 08:40 97.7 70 14 135/79 100 Mechanical Ventilator 30 97.7 04/27/18 08:00 30 04/27/18 08:00 80 04/27/18 07:08 65 14 100 Mechanical Ventilator 30 04/27/18 07:05 65 14 30 04/27/18 06:58 65 14 100 Mechanical Ventilator 30 04/27/18 06:58 30 04/27/18 05:00 64 14 30 04/27/18 04:00 64 04/27/18 04:00 30 04/27/18 04:00 96.8 66 20 111/70 97 Mechanical Ventilator 30 96.8 04/27/18 02:59 96.4 04/27/18 02:45 68 14 30 04/27/18 01:22 65 15 100 Mechanical Ventilator 30 04/27/18 01:10 63 14 100 Mechanical Ventilator 30 04/27/18 01:10 63 14 30 04/27/18 01:10 30 04/27/18 00:00 96.4 73 19 99/75 100 Mechanical Ventilator 30 96.4 04/27/18 00:00 62 04/27/18 00:00 30 04/26/18 23:20 89 14 30 04/26/18 21:06 76 16 30 04/26/18 20:00 96.6 78 19 120/79 99 Mechanical Ventilator 30 96.6 04/26/18 20:00 30 04/26/18 20:00 62 04/26/18 19:20 74 14 100 Mechanical Ventilator 30 04/26/18 19:10 30 04/26/18 19:10 73 14 100 Mechanical Ventilator 30 04/26/18 19:10 73 14 30 04/26/18 19:05 98.0 04/26/18 18:06 98.0 04/26/18 16:59 66 14 30 04/26/18 16:00 98.0 67 14 95/78 100 Mechanical Ventilator 30 98.0 04/26/18 16:00 79 04/26/18 16:00 30 04/26/18 15:06 62 15 30 04/26/18 13:01 58 15 99 Mechanical Ventilator 30 04/26/18 12:46 57 15 98 Mechanical Ventilator 30 04/26/18 12:46 30 04/26/18 12:44 57 15 30 04/26/18 12:00 30 04/26/18 12:00 98.1 65 14 122/69 100 Mechanical Ventilator 30 98.1 04/26/18 12:00 59 Height (Feet): 5 Height (Inches): 8.00 Weight (Pounds): 125 HEENT: status post trach Respiratory/Chest: lungs clear Cardiovascular: normal rate, regular rhythm, no gallop/murmur Abdomen: soft, non tender, other - GT, wounds clean Extremities: no edema, other - left arm PICC Laboratory Tests Test 04/27/18 04:00 White Blood Count 9.8 K/UL (4.8-10.8) Red Blood Count 2.91 M/UL (4.70-6.10) L Hemoglobin 8.9 G/DL (14.2-18.0) L Hematocrit 27.3 % (42.0-52.0) L Mean Corpuscular Volume 94 FL (80-99) Mean Corpuscular Hemoglobin 30.5 PG (27.0-31.0) Mean Corpuscular Hemoglobin Concent 32.5 G/DL (32.0-36.0) Red Cell Distribution Width 13.1 % (11.6-14.8) Platelet Count 325 K/UL (150-450) Mean Platelet Volume 7.0 FL (6.5-10.1) Neutrophils (%) (Auto) 67.0 % (45.0-75.0) Lymphocytes (%) (Auto) 19.2 % (20.0-45.0) L Monocytes (%) (Auto) 8.6 % (1.0-10.0) Eosinophils (%) (Auto) 3.9 % (0.0-3.0) H Basophils (%) (Auto) 1.3 % (0.0-2.0) Sodium Level 141 MMOL/L (136-145) Potassium Level 3.6 MMOL/L (3.5-5.1) Chloride Level 107 MMOL/L (98-107) Carbon Dioxide Level 23 MMOL/L (21-32) Anion Gap 12 mmol/L (5-15) Blood Urea Nitrogen 5 mg/dL (7-18) L Creatinine 0.3 MG/DL (0.55-1.30) L Estimat Glomerular Filtration Rate > 60 mL/min (>60) Glucose Level 86 MG/DL (74-106) Calcium Level 8.8 MG/DL (8.5-10.1) Current Medications Medications (Trade) Dose Ordered Sig/Markel Route PRN Reason Start Time Stop Time Status Last Admin Dose Admin Acetaminophen (Tylenol) 650 mg Q4H PRN ORAL Prn mild pain/Temp > 101 04/09/18 07:00 05/09/18 06:59 04/10/18 22:48 Acetylcysteine (Mucomyst) 100 mg Q6HRT N 04/12/18 13:00 05/09/18 09:59 04/27/18 07:03 Al Hydroxide/Mg Hydroxide (Mylanta) 30 ml Q4H PRN GT Abdominal cramps 04/09/18 07:00 05/09/18 06:59 Albuterol/ Ipratropium (Albuterol/ Ipratropium) 3 ml Q6HRT N 04/26/18 01:00 05/01/18 00:59 04/27/18 07:03 Baclofen (Lioresal) 10 mg THREE TIMES A DAY ORAL 04/09/18 09:00 05/09/18 08:59 04/27/18 09:52 Chlorhexidine Gluconate (Yuridia-Hex 2%) 1 applic DAILY@1999 TOPIC 04/21/18 20:00 05/21/18 19:59 04/26/18 20:25 Dextrose (Dextrose 50%) 25 ml STAT PRN IV Hypoglycemia 04/09/18 07:00 05/09/18 06:59 Dextrose (Dextrose 50%) 50 ml STAT PRN IV Hypoglycemia 04/09/18 07:00 05/09/18 06:59 Diphenhydramine HCl (Benadryl Cream) 1 applic THREE TIMES A DAY PRN TOPIC Itching 04/20/18 21:45 05/20/18 21:44 04/20/18 22:04 Diphenhydramine HCl (Benadryl) 25 mg Q6H PRN IVP Itching 04/11/18 11:00 05/11/18 10:59 04/23/18 00:13 Docusate Sodium (Colace) 100 mg TWICE A DAY NG 04/22/18 18:00 05/22/18 17:59 04/27/18 09:51 Hydromorphone HCl (Dilaudid) 4 mg Q2H PRN GT Severe Pain (Pain Scale 7-10) 04/22/18 18:30 04/29/18 18:29 04/27/18 10:05 Ketorolac Tromethamine (Toradol 30mg) 15 mg Q6H PRN IV breakthrough pain (1-7) 04/22/18 18:30 04/27/18 18:29 04/23/18 08:02 Magnesium Hydroxide (Mom) 30 ml HSPRN PRN ORAL Constipation 04/09/18 07:00 05/09/18 06:59 Mineral Oil (Fleet's Mineral Oil Enema) 133 ml DAILYPRN PRN RECTAL Constipation 04/10/18 06:45 05/10/18 06:44 Morphine Sulfate (Morphine Sulfate) 4 mg Q4H PRN IVP Severe Breakthru Pain (>7) 04/22/18 18:30 04/29/18 18:29 04/26/18 18:06 Pantoprazole (Protonix) 40 mg DAILY IVP 04/09/18 09:00 05/09/18 08:59 04/27/18 09:52 Polyethylene Glycol (Miralax) 17 gm BEDTIME ORAL 04/25/18 21:00 05/25/18 20:59 Venlafaxine HCl (Effexor) 25 mg Q12HR GT 04/09/18 21:00 05/09/18 08:59 04/27/18 09:52 Zolpidem Tartrate (Ambien) 5 mg HSPRN PRN ORAL Insomnia 04/23/18 21:00 04/30/18 20:59 04/27/18 02:01 Zolpidem Tartrate (Ambien) 10 mg HSPRN PRN ORAL Insomnia 04/23/18 21:00 04/30/18 20:59 04/26/18 22:07 TRINO CURIEL Apr 27, 2018 11:05
[2018-04-27 12:00] VITALS: BP 133/89
--- NOTE | 2018-04-27 12:24 | General Progress Note ---
Assessment/Plan Problem List: (1) Abdominal pain ICD Codes: R10.9 - Unspecified abdominal pain SNOMED: 80983468 Qualifiers: Qualified Codes: R10.13 - Epigastric pain (2) UGIB (upper gastrointestinal bleed) ICD Codes: K92.2 - Gastrointestinal hemorrhage, unspecified SNOMED: 10321928 (3) Tracheostomy dependent ICD Codes: Z93.0 - Tracheostomy status SNOMED: 077613839, 771768728 (4) ALS (amyotrophic lateral sclerosis) ICD Codes: G12.21 - Amyotrophic lateral sclerosis SNOMED: 07603605 Assessment/Plan post op care fu labs pain control repeat labs in am bowel regimen going home today Subjective ROS Limited/Unobtainable: Yes Allergies: Coded Allergies: No Known Allergies (Unverified , 04/08/18) Objective Last 24 Hour Vital Signs Date Time Temp Pulse Resp B/P (MAP) Pulse Ox O2 Delivery O2 Flow Rate FiO2 04/27/18 11:11 63 14 30 04/27/18 09:23 63 14 30 04/27/18 08:40 97.7 70 14 135/79 100 Mechanical Ventilator 30 97.7 04/27/18 08:00 30 04/27/18 08:00 80 04/27/18 07:08 65 14 100 Mechanical Ventilator 30 04/27/18 07:05 65 14 30 04/27/18 06:58 65 14 100 Mechanical Ventilator 30 04/27/18 06:58 30 04/27/18 05:00 64 14 30 04/27/18 04:00 64 04/27/18 04:00 30 04/27/18 04:00 96.8 66 20 111/70 97 Mechanical Ventilator 30 96.8 04/27/18 02:59 96.4 04/27/18 02:45 68 14 30 04/27/18 01:22 65 15 100 Mechanical Ventilator 30 04/27/18 01:10 63 14 100 Mechanical Ventilator 30 04/27/18 01:10 63 14 30 04/27/18 01:10 30 04/27/18 00:00 96.4 73 19 99/75 100 Mechanical Ventilator 30 96.4 04/27/18 00:00 62 04/27/18 00:00 30 04/26/18 23:20 89 14 30 04/26/18 21:06 76 16 30 04/26/18 20:00 96.6 78 19 120/79 99 Mechanical Ventilator 30 96.6 04/26/18 20:00 30 04/26/18 20:00 62 04/26/18 19:20 74 14 100 Mechanical Ventilator 30 04/26/18 19:10 30 04/26/18 19:10 73 14 100 Mechanical Ventilator 30 04/26/18 19:10 73 14 30 04/26/18 19:05 98.0 04/26/18 18:06 98.0 04/26/18 16:59 66 14 30 04/26/18 16:00 98.0 67 14 95/78 100 Mechanical Ventilator 30 98.0 04/26/18 16:00 79 04/26/18 16:00 30 04/26/18 15:06 62 15 30 04/26/18 13:01 58 15 99 Mechanical Ventilator 30 04/26/18 12:46 57 15 98 Mechanical Ventilator 30 04/26/18 12:46 30 04/26/18 12:44 57 15 30 Intake and Output 04/26/18 04/27/18 19:00 07:00 Intake Total 215 ml Output Total 600 ml Balance -385 ml Tube Feeding 125 ml Other 90 ml Output Urine Total 600 ml # Voids 2 1 Laboratory Tests 04/27/18 04:00: White Blood Count 9.8, Red Blood Count 2.91L, Hemoglobin 8.9L, Hematocrit 27.3L , Mean Corpuscular Volume 94, Mean Corpuscular Hemoglobin 30.5, Mean Corpuscular Hemoglobin Concent 32.5, Red Cell Distribution Width 13.1, Platelet Count 325, Mean Platelet Volume 7.0, Neutrophils (%) (Auto) 67.0, Lymphocytes (% ) (Auto) 19.2L, Monocytes (%) (Auto) 8.6, Eosinophils (%) (Auto) 3.9H, Basophils (%) (Auto) 1.3, Sodium Level 141, Potassium Level 3.6, Chloride Level 107, Carbon Dioxide Level 23, Anion Gap 12, Blood Urea Nitrogen 5L, Creatinine 0.3L, Estimat Glomerular Filtration Rate > 60, Glucose Level 86, Calcium Level 8.8 Height (Feet): 5 Height (Inches): 8.00 Weight (Pounds): 125 General Appearance: alert EENT: normal ENT inspection Neck: supple Cardiovascular: normal rate Respiratory/Chest: decreased breath sounds Abdomen: normal bowel sounds, non tender, soft Extremities: non-tender Niraj Avalos MD Apr 27, 2018 12:24
[2018-04-27 16:00] VITALS: BP 113/80
[2018-04-27] MEDS: Morphine Sulfate 4mg/ml Inj IVP PRN (16:32)
--- NOTE | 2018-04-28 13:19 | Discharge Summary ---
Discharge Summary Discharge Summary _ DATE OF ADMISSION: 04/08/2018 DATE OF DISCHARGE: 04/27/2018 CONSULTANTS: Dr. Bry Avalos BRIEF HOSPITAL COURSE: Patient is a 52-year-old male, with history of ALS and who is on trach and vent , presented to ED via EMS due to epigastric pain, 10 out of 10, sharp in nature , with radiation to the left upper quadrant. noted blood in the vomitus. He denied fever or chills. He denied chest pain or shortness of breath. On evaluation at ED, he was noted to have leukocytosis WBC was 19.3. Lipase was normal, LFTs were normal. Hemoglobin was stable at 13, hematocrit 39. He underwent CT of the abdomen and pelvis that showed possible wall thickening in the rectosigmoid colon with possible colitis; there was mild dilatation of the CBD. He was then admitted for evaluation of abdominal pain and GI bleed. He was seen by skip tracer. He initially refused endoscopy and wanted to be transferred to [place]. On 04/14/2018 he underwent upper endoscopy with findings of erythematous patches in the proximal antrum or distal body of unclear significance. Stool OB was negative 1. There was sudden increase in LFTs. HIDA scan done on 04/15/2018 was negative. He continued to have leukocytosis. There was concern for sepsis or urinary tract infection. He was pancultured. Infectious specialist was consulted and patient was started on vancomycin, Zosyn and Flagyl. He had also been on vent and long-term tracheostomy and had not had any trach change. On 04/18/2018, tracheostomy was removed and a new trach was inserted without any complications, procedure was done by Dr. Fish at bedside with presence of an RT. A repeat HIDA scan was done; however CCK apparently in short supply, a fatty milk protocol was used instead. He underwent a repeat HIDA scan with nonvisualization of the gallbladder. He then underwent laparoscopic cholecystectomy on 04/22/[address] Bry Fish. Sputum culture with growth of MRSA. Blood culture with coagulase-negative staph , possibly contaminated. Leukocytosis eventually resolved. Patient was comfortable. Abdomen was soft, nontender and nondistended. Incisions were clean dry and intact. He was resumed tube feeding. He was then cleared for discharge. PICC line was discontinued. FINAL DIAGNOSES: Acute cholecystitis status post laparoscopic cholecystectomy Acute colitis ALS on chronic trach and vent Gastritis Anemia Staph bacteremia Hypokalemia PROCEDURES: Status post EGD on 04/14/2018 Status post tracheostomy change on 04/18/2018 Status post laparoscopic cholecystectomy on 04/22/2018 DISPOSITION: Patient was discharged home. DISCHARGE INSTRUCTIONS: Follow up within a week. I have been assigned to dictate discharge summary on this account, and I was not involved in the patient's management. Francy Lane NP Apr 28, 2018 13:19
== END 2018-04-27 18:15 | disposition home or self-care (01) | DRG 417 ==
LOC: EDBD 21:49 → EMR 21:59 → 2W 23:27 → EDBEDREQ 04-09 00:02 → 2W 04-09 13:28
PROC: 06HM33Z Insertion of Infusion Device into Right Femoral Vein, Percutaneous Approach (ICD-10-PCS; principal; 2018-04-08)
PROC: 5A1955Z Respiratory Ventilation, Greater than 96 Consecutive Hours (ICD-10-PCS; principal; 2018-04-08)
PROC: 06HN33Z Insertion of Infusion Device into Left Femoral Vein, Percutaneous Approach (ICD-10-PCS; principal; 2018-04-08)
PROC: B548ZZA Ultrasonography of Superior Vena Cava, Guidance (ICD-10-PCS; 2018-04-13)
PROC: 02HV33Z Insertion of Infusion Device into Superior Vena Cava, Percutaneous Approach (ICD-10-PCS; 2018-04-13)
PROC: 0DB78ZX Excision of Stomach, Pylorus, Via Natural or Artificial Opening Endoscopic, Diagnostic (ICD-10-PCS; 2018-04-14)
PROC: B54NZZA Ultrasonography of Left Upper Extremity Veins, Guidance (ICD-10-PCS; 2018-04-21)
PROC: 05H433Z Insertion of Infusion Device into Left Innominate Vein, Percutaneous Approach (ICD-10-PCS; 2018-04-21)
PROC: 0B21XFZ Change Tracheostomy Device in Trachea, External Approach (ICD-10-PCS; 2018-04-22)
PROC: 0FT44ZZ Resection of Gallbladder, Percutaneous Endoscopic Approach (ICD-10-PCS; 2018-04-22)
DX: K81.0 Acute cholecystitis (principal); J15.212 Pneumonia due to Methicillin resistant Staphylococcus aureus; G12.21 Amyotrophic lateral sclerosis; J96.10 Chronic respiratory failure, unspecified whether with hypoxia or hypercapnia; K92.0 Hematemesis; N39.0 Urinary tract infection, site not specified; Z99.11 Dependence on respirator [ventilator] status; R78.81 Bacteremia; Z93.0 Tracheostomy status; K29.70 Gastritis, unspecified, without bleeding; R13.10 Dysphagia, unspecified; D64.9 Anemia, unspecified; K52.9 Noninfective gastroenteritis and colitis, unspecified; E87.6 Hypokalemia
CPT/HCPCS: 36415; 36569; 71045; 74177; 76700; 76937; 78266; 80048; 80053; 80202; 81001; 81003; 82150; 82248; 82270; 82378; 83540; 83550; 83690; 85007; 85025; 85610; 85730; 86850; 86900; 86901; 87040; 87045; 87070; 87086; 87181; 87205; 93005; 93970; 94002; 94003; 94150; 94640; 94664; 99285; J2250; J2405; J7620; J8499